=== PATIENT | male | born 1955 | race Caucasian/White ===

== ENCOUNTER 2016-12-29 08:09 | Emergency (ER) | payer OTHER ==
[~2016-12-29] VITALS: Wt 71.0 kg
[~2016-12-29 08:09] MED LIST: ADV25050 INH; ASPI81TA3 PO; ATOR80TA75 PO; AZIT250T94 PO; LEVA0.634 HHN; LOSA25TA2 PO; METO25TA7 PO; PANT40TA4 PO; PRED20TA PO; TICA90TA PO; XOP15INH INH
[2016-12-29] MEDS ORDERED: ALBUTEROL 0.5% (NEB) 2.5 MG/0.5 ML AMP INH STA ×2 (08:40→08:42)
[2016-12-29] MEDS ORDERED: IPRATROPIUM (NEB) 0.5 MG/2.5 ML AMP INH STA (08:40)
[2016-12-29] MEDS ORDERED: predniSONE 20 MG TAB PO STA (08:40)
--- NOTE | 2016-12-29 09:40 | ERD ---
ER Documentation Chief Complaint Date/Time DATE: 12/29/16 TIME: 09:37 Chief Complaint SOB, WHEEZING, HX OF ASTHMA, NO CHEST PAIN REPORTED HPI This is a 61-year-old male who presents the emergency department today complaining of some shortness of breath and wheezing that started last night. Patient has a history of asthma. States he has been using his rescue inhaler a lot but he ran out of his nebulizer treatments. Denies any chest pain, nausea vomiting, fevers or chills. ROS All systems reviewed and are negative except as per history of present illness. Medications Home Meds Active Scripts Prednisone* (Prednisone*) 20 Mg Tab, 40 MG PO DAILY for 4 Days, TAB Prov:PHILLIP TINAJERO PA-C 12/29/16 Albuterol Sulfate* (Albuterol Sulfate* Neb) 0.083%-3 Ml Neb, 2.5 MG NEB Q4 Y for SHORTNESS OF BREATH, #30 EA Prov:PHILLIP TINAJERO PA-C 12/29/16 Albuterol Sulfate* (Ventolin HFA*) 18 Gm Hfa.aer.ad, 2 PUFF INHALATION Q4H, #1 INHALER Prov:PHILLIP TINAJERO PA-C 12/29/16 Azithromycin* (Zithromax*) 250 Mg Tablet, 250 MG PO .ZPACK DIRECTED, #6 TAB TAKE 500 MG (2 TABS) THE FIRST DAY THEN 250 MG (1 TAB) DAYS 2-5 Prov:SAL SCHUSTER MD 10/22/16 Prednisone* (Prednisone*) 20 Mg Tab, 60 MG PO DAILY for 6 Days, TAB 60 mg by mouth per day for 3 days then 40 mg by mouth for 3 days. Prov:SAL SCHUSTER MD 10/22/16 Levalbuterol* (Xopenex* HFA) 15 Gm Inha, 2 PUFFS INH Q4H Y for WHEEZING AND SOB , #1 INHALER Prov:PETER DEY 09/01/16 Ticagrelor* (Brilinta*) 90 Mg Tablet, 90 MG PO BID for 90 Days, TAB Prov:PEETR DEY 09/01/16 Salmeterol Xinaf/Fluticasone* (Advair*) 250-50 Diskus Inhaler, 1 INH INH BID for 30 Days Prov:PETER DEY 09/01/16 Pantoprazole* (Pantoprazole*) 40 Mg Tablet.dr, 40 MG PO DAILY@06 for 20 Days Prov:PETER DEY 09/01/16 Metoprolol Succinate* (Toprol XL*) 25 Mg Tab.sr.24h, 50 MG PO DAILY for 30 Days Prov:PETER DEY 09/01/16 Losartan Potassium* (Cozaar*) 25 Mg Tablet, 25 MG PO DAILY for 30 Days, TAB Prov:PETER DEY 09/01/16 Levalbuterol Hcl* (Levalbuterol Hcl*) 0.63 Mg/3 Ml Vial.neb, 0.63 MG HHN Q4 Y for dyspnea and wheezing, #90 Prov:PETER DEY 09/01/16 Atorvastatin* (Atorvastatin*) 80 Mg Tablet, 80 MG PO HS for 30 Days, TAB Prov:PETER DEY 09/01/16 Aspirin (Aspirin) 81 Mg Chew, 81 MG PO DAILY for 30 Days, TAB Prov:ZACKIDORPETRE 09/01/16 Allergies Allergies: Coded Allergies: No Known Allergy (Unverified , 12/29/16) PMhx/Soc History of Surgery: Yes (STENT ) Anesthesia Reaction: No Hx Neurological Disorder: No Hx Respiratory Disorders: Yes (ASTHMA) Hx Cardiac Disorders: Yes (STEMI) Hx Psychiatric Problems: Yes (depression) Hx Miscellaneous Medical Probl: Yes (cholesterol, renal insufficiency.) Hx Alcohol Use: No Hx Substance Use: No Hx Tobacco Use: Yes (USE NICORETTE GUM) Smoking Status: Former smoker Physical Exam Vitals Vital Signs Date Time Temp Pulse Resp B/P Pulse Ox O2 Delivery O2 Flow Rate FiO2 12/29/16 08:50 78 20 96 21 12/29/16 08:18 97.1 71 18 104/68 96 Physical Exam Const: Talkative, no acute distress Head: Atraumatic Eyes: Normal Conjunctiva ENT: Ears TMs normal. Nose no drainage. Throat no erythema no exudate Neck: Full range of motion..~ No meningismus. Resp: Diffuse wheezing bilaterally in all lung sandoval. Cardio: Regular rate and rhythm, no murmurs Skin: No petechiae or rashes Neur: Awake and alert Psych: Normal Mood and Affect Results 24 hrs Current Medications Medications (Trade) Dose Ordered Sig/Osmar Route PRN Reason Start Time Stop Time Status Last Admin Dose Admin Albuterol (Proventil 0.5% (Neb)) 5 mg ONCE STAT INH 12/29/16 08:40 12/29/16 08:42 DC Ipratropium [place] (Atrovent 0.02% (Neb)) 1 mg ONCE STAT INH 12/29/16 08:40 12/29/16 08:42 DC 12/29/16 08:50 Prednisone (Prednisone) 60 mg ONCE STAT PO 12/29/16 08:40 12/29/16 08:42 DC 12/29/16 08:50 Albuterol (Proventil 0.5% (Neb)) 10 mg ONCE STAT INH 12/29/16 08:42 12/29/16 08:43 DC 12/29/16 08:50 Procedures/MDM This is a 61-year-old male who presents to the emergency department today complaining of wheezing and some shortness of breath that started last night. Patient has a history of asthma and he has run out of his medications. On physical exam patient did have diffuse wheezing bilaterally in all lung sandoval. His oxygen saturation was 96%. Patient was not in any acute distress and he has had no fevers or chills and I do not feel the patient requires a chest x- ray at this time. Patient was seen in September for similar complaints and had a negative chest x-ray at that time. Patient has had a history of a stent placement and OH back in August 2016 and therefore did obtain an EKG given his complaint of shortness of breath. EKG read and interpreted by Dr. Martinez. Rate [address] elevation. No QT prolongation. Sinus tachycardia. Low suspicion for acute OH, PE, pericarditis, Patient symptoms at this time is consistent with acute asthma exacerbation. Patient was given a 1 hour continuous breathing treatment and oral prednisone here in the emergency department. Patient's symptoms improved and wheezing resolved. I will give him a prescription for short course of prednisone per home as well as a refill on his asthma medications. Do not feel the patient requires antibiotics at this time. Low suspicion for pneumonia At this time the patient is stable for discharge and outpatient management. Patient should follow up with their PCP in the next 1-2 days. They may return to the emergency department sooner for any persistent or worsening of symptoms. Patient understood and agreed with the plan. Departure Diagnosis: Primary Impression: Asthma exacerbation Condition: PHILLIP Black PA-C Dec 29, 2016 09:40
[2016-12-29] MEDS ORDERED: ALBU2.5V3 NEB (09:55)
[2016-12-29] MEDS ORDERED: ALBU18HF INHALATION (09:55)
[2016-12-29] MEDS ORDERED: PRED20TA PO (09:55)
== END 2016-12-29 10:04 | disposition home or self-care (01) ==
LOC: FTE 08:09
DX: J45.901 Unspecified asthma with (acute) exacerbation (principal); Z98.61 Coronary angioplasty status; Z87.891 Personal history of nicotine dependence; Z79.82 Long term (current) use of aspirin; Z79.01 Long term (current) use of anticoagulants
CPT/HCPCS: 93005; 94644; J7512; Z7502; Z7610

== ENCOUNTER 2017-03-10 02:32 | Inpatient (IN) | payer OTHER ==
[2017-03-10] VITALS (8 sets, daily range): BP systolic 94–134; BP diastolic 55–65; PULSE 86–105; RESP 17–20; Ht 170.2 cm; Wt 72.7 kg
[~2017-03-10] VITALS: Ht 170.2 cm; Wt 72.7 kg
[~2017-03-10 02:32] MED LIST changes: +ALBU18HF INHALATION; +ALBU2.5V3 NEB; +LEVA15HF6 INH; -XOP15INH INH
[2017-03-10] MEDS ORDERED: SOD CHLORIDE 0.9% 1,000 ML IV STA (02:38)
[2017-03-10] MEDS ORDERED: ALBUTEROL 0.5% (NEB) 2.5 MG/0.5 ML AMP NEB STA (02:38)
[2017-03-10] MEDS ORDERED: IPRATROPIUM (NEB) 0.5 MG/2.5 ML AMP NEB STA (02:38)
--- NOTE | 2017-03-10 02:55 | RADRPT ---
PROCEDURE: Portable chest x-ray. CLINICAL INDICATION: Asthma. TECHNIQUE: Portable AP view of the chest. COMPARISON: 10/22/2016. FINDINGS: No pulmonary edema or conolidation is identified. The cardiac silhouette is magnified. No pleural effusion is seen. There is no pneumothorax. IMPRESSION: 1. No evidence of acute cardiopulmonary disease. RPTAT: HTAR .Ezra Gerardo MD, MD Date Time Electronically viewed and signed by .Ezra Gerardo MD, on 03/10/2017 02:55 .R/
[2017-03-10] MEDS ORDERED: MAGNESIUM SULFATE 2 GM/50 ML 50 ML IVPB ONE (03:00)
[2017-03-10] MEDS ORDERED: METHYLPREDNISOLONE 125 MG INJ IV ONE (03:00)
[2017-03-10 03:11] LABS: ADD SCAN DIFF NO
[2017-03-10 03:12] LABS: BASOPHIL # 0.1 10^3/ul (0.0-0.1); BASOPHILS % 0.6 % (0.0-2.0); EOSINOPHILS # 1.7 10^3/ul (0.0-0.5); EOSINOPHILS % 9.7 % (0.0-7.0); HEMATOCRIT 45.1 % (42.0-52.0); HEMOGLOBIN 15.2 g/dl (14.0-18.0); LYMPHOCYTES # 4.4 10^3/ul (0.8-2.9); LYMPHOCYTES % 24.7 % (15.0-51.0); MEAN CORPUSCULAR HEMOGLOBIN 32.2 pg (29.0-33.0); MEAN CORPUSCULAR HGB CONC 33.7 g/dl (32.0-37.0); MEAN CORPUSCULAR VOLUME 95.6 fl (82.0-101.0); MEAN PLATELET VOLUME 8.7 fl (7.4-10.4); MONOCYTE # 1.2 10^3/ul (0.3-0.9); MONOCYTES % 6.4 % (0.0-11.0); NEUTROPHIL # 10.4 10^3/ul (1.6-7.5); PLATELET COUNT 225 10^3/UL (140-415); RED BLOOD COUNT 4.72 10^6/ul (4.70-6.10); RED CELL DISTRIBUTION WIDTH 13.2 % (11.5-14.5); WHITE BLOOD COUNT 17.9 10^3/ul (4.8-10.8)
[2017-03-10 04:18] LABS: ANION GAP 13 (8-16); BLOOD UREA NITROGEN 25 mg/dl (7-20); CALCIUM 9.6 mg/dl (8.4-10.2); CARBON DIOXIDE 23 mmol/L (21-31); CHLORIDE 109 mmol/L (97-110); CREATININE 1.64 mg/dl (0.61-1.24); GLUCOSE 125 mg/dl (70-220); POTASSIUM 4.7 mmol/L (3.5-5.1); SODIUM 140 mmol/L (135-144)
[2017-03-10 04:33] LABS: TROPONIN-I < 0.012 ng/ml (0.00-0.12)
[2017-03-10 05:17] LABS: AADO2 Arterial 65.7 mmHg (7.0-24.0); Allen Test ACCEPTAB; Arterial Base Excess -4.2 mmol/L (-3.0-3); Arterial COHb 0.3 % (0.0-3.0); Arterial Fraction of Oxyhgb 98.7 % (93.0-99.0); Arterial HCO3 19.9 mmol/L (22.0-26.0); Arterial MetHb 0.4 % (0.0-1.5); Arterial Total Hemglobin 14.3 g/dl (12.0-18.0); Blood Gas IEPAP 15/5; MODE MASK - BIPAP
[2017-03-10] MEDS ORDERED: ALBUTEROL 0.083% (NEB) 2.5 MG/3 ML AMP HHN STA (05:56)
[2017-03-10] MEDS ORDERED: ACETAMINOPHEN 325 MG TAB PO PRN ×2 (06:00→07:30)
[2017-03-10] MEDS ORDERED: ONDANSETRON 4 MG INJ IV PRN ×2 (06:00→07:30)
--- NOTE | 2017-03-10 06:35 | ERA ---
ER Documentation Chief Complaint Date/Time DATE: 03/10/17 TIME: 06:29 Chief Complaint BIBA RA39,SOB X2 days,hx asthma HPI This 61-year-old male presents with increasing shortness of breath 2 days. Is brought in by paramedics in respiratory extremis and unable to provide a history initially. After breathing treatments and BiPAP patient was able to say that he had no chest pain, no fevers or chills. He has had cough. This feels like his COPD exacerbation "but a bad one". ROS All systems reviewed and are negative except as per history of present illness. Medications Home Meds Active Scripts Prednisone* (Prednisone*) 20 Mg Tab, 40 MG PO DAILY for 4 Days, TAB Prov:PHILLIP TINAJERO PA-C 12/29/16 Albuterol Sulfate* (Albuterol Sulfate* Neb) 0.083%-3 Ml Neb, 2.5 MG NEB Q4 Y for SHORTNESS OF BREATH, #30 EA Prov:PHILLIP TINAJERO PA-C 12/29/16 Albuterol Sulfate* (Ventolin HFA*) 18 Gm Hfa.aer.ad, 2 PUFF INHALATION Q4H, #1 INHALER Prov:PHILLIP TINAJERO PA-C 12/29/16 Prednisone* (Prednisone*) 20 Mg Tab, 60 MG PO DAILY for 6 Days, TAB 60 mg by mouth per day for 3 days then 40 mg by mouth for 3 days. Prov:SAL SCHUSTER MD 10/22/16 Levalbuterol* (Xopenex* HFA) 15 Gm Inha, 2 PUFFS INH Q4H Y for WHEEZING AND SOB , #1 INHALER Prov:PETER DEY 09/01/16 Ticagrelor* (Brilinta*) 90 Mg Tablet, 90 MG PO BID for 90 Days, TAB Prov:PETER DEY 09/01/16 Salmeterol Xinaf/Fluticasone* (Advair*) 250-50 Diskus Inhaler, 1 INH INH BID for 30 Days Prov:PETER DEY 09/01/16 Pantoprazole* (Pantoprazole*) 40 Mg Tablet.dr, 40 MG PO DAILY@06 for 20 Days Prov:PETER DEY 09/01/16 Metoprolol Succinate* (Toprol XL*) 25 Mg Tab.sr.24h, 50 MG PO DAILY for 30 Days Prov:BERTA DEYNELL 09/01/16 Losartan Potassium* (Cozaar*) 25 Mg Tablet, 25 MG PO DAILY for 30 Days, TAB Prov:BERTA DEYNELL 09/01/16 Levalbuterol Hcl* (Levalbuterol Hcl*) 0.63 Mg/3 Ml Vial.neb, 0.63 MG HHN Q4 Y for dyspnea and wheezing, #90 Prov:TIBURCIOPETER 09/01/16 Atorvastatin* (Atorvastatin*) 80 Mg Tablet, 80 MG PO HS for 30 Days, TAB Prov:CINTHYAIrvingPETER 09/01/16 Aspirin (Aspirin) 81 Mg Chew, 81 MG PO DAILY for 30 Days, TAB Prov:ZACKRAKANPETER 09/01/16 Discontinued Scripts Azithromycin* (Zithromax*) 250 Mg Tablet, 250 MG PO .ZPACK DIRECTED, #6 TAB TAKE 500 MG (2 TABS) THE FIRST DAY THEN 250 MG (1 TAB) DAYS 2-5 Prov:SAL SCHUSTER MD 10/22/16 Allergies Allergies: Coded Allergies: No Known Allergy (Unverified , 12/29/16) PMhx/Soc History of Surgery: Yes (STENT ) Anesthesia Reaction: No Hx Neurological Disorder: No Hx Respiratory Disorders: Yes (ASTHMA) Hx Cardiac Disorders: Yes (STEMI) Hx Psychiatric Problems: Yes (depression) Hx Miscellaneous Medical Probl: Yes (cholesterol, renal insufficiency.) Hx Alcohol Use: No Hx Substance Use: No Hx Tobacco Use: Yes (USE NICORETTE GUM) Smoking Status: Former smoker Physical Exam Vitals Vital Signs Date Time Temp Pulse Resp B/P Pulse Ox O2 Delivery O2 Flow Rate FiO2 03/10/17 05:40 108 18 123/78 100 Nasal Cannula 3.0 03/10/17 04:45 105 18 110/75 100 CPAP 03/10/17 03:35 117 100 60 03/10/17 03:20 124 22 137/89 100 Non Rebreather 15.0 03/10/17 02:51 123 26 93 21 03/10/17 02:40 Nasal Cannula 4 03/10/17 02:37 Nasal Cannula 3.0 03/10/17 02:34 98.2 121 19 158/90 97 Physical Exam Const: [] Severe respiratory distress Head: Atraumatic Eyes: Normal Conjunctiva ENT: Normal External Ears, Nose and Mouth. Neck: Full range of motion..~ No meningismus. Resp: Pronounced expiratory and inspiratory wheezing, tachypnea, accessory muscle use Cardio: Regular tachycardia no murmurs Abd: Soft, non tender, non distended. Normal bowel sounds Skin: No petechiae or rashes Back: No midline or flank tenderness Ext: No cyanosis, or edema Neur: Awake and alert and oriented 3, no focal deficits Psych: Normal Mood and Affect Result Diagram: 03/10/17 0300 03/10/17 0300 Results 24 hrs Laboratory Tests Test 03/10/17 03:00 03/10/17 05:09 White Blood Count 17.910^3/ul Red Blood Count 4.7210^6/ul Hemoglobin 15.2g/dl Hematocrit 45.1% Mean Corpuscular Volume 95.6fl Mean Corpuscular Hemoglobin 32.2pg Mean Corpuscular Hemoglobin Concent 33.7g/dl Red Cell Distribution Width 13.2% Platelet Count 38083^3/UL Mean Platelet Volume 8.7fl Neutrophils % 58.0% Lymphocytes % 24.7% Monocytes % 6.4% Eosinophils % 9.7% Basophils % 0.6% Nucleated Red Blood Cells % 0.0/100WBC Neutrophils # 10.410^3/ul Lymphocytes # 4.410^3/ul Monocytes # 1.210^3/ul Eosinophils # 1.710^3/ul Basophils # 0.110^3/ul Nucleated Red Blood Cells # 0.010^3/ul Sodium Level 140mmol/L Potassium Level 4.7mmol/L Chloride Level 109mmol/L Carbon Dioxide Level 23mmol/L Anion Gap 13 Blood Urea Nitrogen 25mg/dl Creatinine 1.64mg/dl Glucose Level 125mg/dl Calcium Level 9.6mg/dl Troponin I < 0.012ng/ml Blood Gas Specimen Source Blood arterial Arterial Blood Date Drawn 03/10/2017 5:12:14 AM Arterial Blood pH (Temp corrected) 7.386 Arterial Blood pCO2 (Temp correct) 34.0mmhg Arterial Blood pO2 (Temp corrected) 324.7mmHG Arterial Blood HCO3 19.9mmol/L Arterial Blood Base Excess -4.2mmol/L Arterial Blood Oxygen Saturation 99.4mmHG Ezra Test ACCEPTAB Arterial Blood Gas Puncture Site Right Radial Arterial Blood Carboxyhemoglobin 0.3% Arterial Blood Methemoglobin 0.4% Blood Gas A-a O2 Differential 65.7mmHg Oxyhemoglobin Percent 98.7% Total Hemoglobin 14.3g/dl Blood Gas Temperature 37.0C Blood Gas Respiration Rate 16.0 Blood Gas Actual Respiration Rate 19 Blood Gas Modality MASK - BIPAP FiO2 60.0% Blood Gas IPAP/EPAP Ratio 15/5 Blood Gas Notified Whom MG Blood Gas Notified Time 03/10/2017 5:17:45 AM Current Medications Medications (Trade) Dose Ordered Sig/Osmar Route PRN Reason Start Time Stop Time Status Last Admin Dose Admin Sodium Chloride (NS) 1,000 ml @ 1,000 mls/hr Q1H STAT IV 03/10/17 02:38 03/10/17 03:37 DC 03/10/17 02:57 Albuterol (Proventil 0.5% (Neb)) 15 mg ONCE STAT NEB 03/10/17 02:38 03/10/17 02:39 DC 03/10/17 02:50 Ipratropium [place] (Atrovent 0.02% (Neb)) 1 mg ONCE STAT NEB 03/10/17 02:38 03/10/17 02:39 DC 03/10/17 02:50 Methylprednisolone Sodium Succinate 125 mg 125 mg ONCE ONCE IV 03/10/17 03:00 03/10/17 03:01 DC 03/10/17 02:57 Magnesium Sulfate (Magnesium Sulfate 2 Gm/50 ml) 50 ml @ 1,000 mls/hr ONCE ONCE IVPB 03/10/17 03:00 03/10/17 03:02 DC 03/10/17 02:57 Ondansetron HCl (Zofran Inj) 4 mg ER BRIDGE PRN IV NAUSEA AND/OR VOMITING 03/10/17 06:00 03/11/17 05:59 Acetaminophen (Tylenol Tab) 650 mg ER BRIDGE PRN PO MILD PAIN/FEVER 03/10/17 06:00 03/11/17 05:59 Albuterol (Proventil 0.083% (Neb)) 5 mg ONCE STAT HHN 03/10/17 05:56 03/10/17 05:58 DC Procedures/MDM Severe COPD exacerbation. Patient presented in extremis. He was given 15 mg albuterol 1 mg Atrovent breathing treatment as well as Solu-Medrol and 2 mg magnesium push. His condition was improving somewhat but he was still working very hard to breathe. BiPAP was then used. After now on the BiPAP the patient was feeling much better. He still had very pronounced wheezing. Tachycardia had reduced significantly. There are no signs of cardiac ischemia on EKG or troponin. Patient had had a N STEMI in August of last year. Chest x-ray is also clear for any pneumonia. Did have leukocytosis which may be reactive to from his respiratory extremis. He will be admitted to the hospital for further monitoring. Also has renal insufficiency with creatinine values consistent to prior. We have the patient is stable for telemetry and does not need ICU at this time. EKG interpretation: Sinus tachycardia rate of 127, left anterior fascicular block, junctional ST depression, ST elevations or depressions concerning for acute ischemia, indeterminate axis hospital monitor interpretation sinus tachycardia improved after respiratory treatment Chest x-ray interpretation: Hyperinflated lungs without evidence of infiltrate, pneumothorax, pulmonary edema, or fractures Critical care time 44 minutes: This includes treatment of severe COPD with need for noninvasive positive pressure ventilation as well as magnesium distraction and breathing treatment, multiple visits the patient's bedside to reassess status, chart reviewed, discussion with patient admitting doctor. Does not include any billable procedures Departure Diagnosis: Primary Impression: Severe chronic obstructive pulmonary disease Additional Impressions: Respiratory failure Renal insufficiency Leukocytosis GREGORIO DAO DO March 10, 2017 06:35
[2017-03-10] MEDS ORDERED: NITROGLYCERIN (SL) 0.4 MG TAB SL PRN (07:30)
[2017-03-10] MEDS ORDERED: DOCUSATE SODIUM 100 MG CAP PO PRN (07:30)
[2017-03-10] MEDS ORDERED: ALBUTEROL HFA 8 GM INHALER INH SCH (07:30)
[2017-03-10] MEDS ORDERED: ALBUTEROL 0.083% (NEB) 2.5 MG/3 ML AMP NEB PRN (07:30)
[2017-03-10] MEDS ORDERED: NACL 0.9% 3 ML SYG IV SCH (07:30)
[2017-03-10] MEDS ORDERED: BISACODYL (EC) 5 MG TAB PO PRN (07:30)
--- NOTE | 2017-03-10 08:01 | HP ---
Date/Time of Note Date/Time of Note DATE: 03/10/17 TIME: 07:13 Assessment/Plan VTE Prophylaxis VTE Prophylaxis Intervention: SCD's Lines/Catheters IV C[facility] Saline Lock Assessment/Plan Chief Complaint/Hosp Course This is a 61-year-old male being admitted to telemetry floor for: #1 COPD/asthma exacerbation: Patient currently right now is doing a lot better status post steroids and BiPAP treatment. Will continue DuoNeb every 4 hours. He did receive a loading dose of Solu-Medrol in the ER. Proceed with Prednisone burst 40 mg once daily for 5 days. Patient does have productive sputum he came in with increased dyspnea and he also has risk factors of cardiac disease as well as an elevated white count of 17 Will treat him right now with ceftriaxone IV as I would like to avoid using a fluoroquinolone secondary to his cardiac history. Supplemental 02 to maintain 02 greater than 90%. #2 history of STEMI: Patient currently not complaining of any chest pain. First set of troponin was negative will order another set. More likely appears to be #1, but will continue to monitor. #3 COPD exacerbation. We will continue his home medications as well as his beta -matheus secondary to his recent history IA. #4 Zeferino: Janayley pre-renal in etiology. PO hydration. continue to follow Cr. #5 Hypertension; stable, continue losartan #6 Dyslipidemia lipids, continue statin #7 DVT and GI prophylaxis: The current time patient is on Brilinta will put him on SCDs, famotidine Problems: HPI/ROS Admit Date/Time Admit Date/Time 03/10/2017 Hx of Present Illness Chief complaint: Shortness of breath 1 week worsening over 2 days This 61-year-old male presents with increasing shortness of breath 2 days. he was brought in via EMS in respiratory distress and after receiving breathing treatments and BiPAP he was able to get relief and was able to give appropriate history to the ER physician. Patient states that over the last week or so he has had a productive cough with phlegm which is increasing. It has been changing color from clear to greenish color now. Patient states that over the last 2 nights he started having increasing shortness of breath. He tried his inhalers at home however he was not getting any relief. He states that he has had exacerbation for this feels like a really bad one. He denies any chest pain or diaphoresis or swelling in his legs. Denies any fevers. Patient currently right now is feeling a lot better than before. Allergies: NKDA Medications: See DEC ROS Const: As per HPI Eyes : No pain discharge or redness or change in visual acuity ENT: No pain, sore throat, congestion, congestion, dysphagia or discharge Respiratory: As per HPI Cardiovascular: As per HPI GI : no change in appetite, abdominal pain, nausea, vomiting, diarrhea, constipation, or change in the color his stool Genitourinary: No dysuria, hematuria, flank pain , discharge or CVA tenderness Musculoskeletal: No joint pain, back pain, neck pain, restricted range of motion in neck or joints Skin: No rash, bruising or hives Neuro: No headache, dizziness, syncope, seizure, focal weakness Endocrine: No polyuria, polydipsia, temperature intolerance Psych: No hallucination, depression, anxiety or suicidal ideation PMH/Family/Social Past Medical History IA status post stents in August 2016 Arthritis. Hypertension. Dyslipidemia. Asthma/copd Depression. Reported history of PTSD. Past Surgical History Cardiac stents in August 2016 Past Surgical Hx: no surgical history Family History Significant Family History: diabetes (Dad), hypertension (Mom), vascular disease (Mom) Social History Alcohol Use: none Smoking Status: Current every day smoker (4 cigarettes per day for the last 4 months, previously 1 pack per day 30 years) Drug Use: none Exam/Review of Systems Vital Signs Vitals Vital Signs Date Time Temp Pulse Resp B/P Pulse Ox O2 Delivery O2 Flow Rate FiO2 03/10/17 05:40 108 18 123/78 100 Nasal Cannula 3.0 03/10/17 03:35 60 03/10/17 02:34 98.2 Exam Exam General: Patient is a well-developed and pleasant male in no acute distress. HEENT: Atraumatic, normocephalic. The pupils are equal, round and reactive. Extraocular motor are intact Neck: Supple with full range of motion. No rigidity or meningismus Chest: Nontender Lungs: Diffuse expiratory wheezing of bilateral lung sandoval, adequate aeration Heart: Normal S1-S2, Regular rhythm and rate. Abdomen: Soft , nontender, nondistended , bowel sounds are present. No guarding no rebound tenderness , No masses or organomegaly. Extremities: Normal to inspection, no edema no cyanosis Neurologic: Normal mental status, speech normal, cranial nerves II through XII are intact, motor and sensory are intact, no focal weakness Additional Comments Sinus tachycardia rate of 127, left anterior fascicular block, PROCEDURE: Portable chest x-ray. CLINICAL INDICATION: Asthma. TECHNIQUE: Portable AP view of the chest. COMPARISON: 10/22/2016. FINDINGS: No pulmonary edema or conolidation is identified. The cardiac silhouette is magnified. No pleural effusion is seen. There is no pneumothorax. IMPRESSION: 1. No evidence of acute cardiopulmonary disease. Labs Result Diagram: 03/10/17 0300 03/10/17 0300 TY LOMBARDO March 10, 2017 07:26
[2017-03-10] MEDS: ASPIRIN 81 MG TAB PO SCH (08:58)
[2017-03-10] MEDS ORDERED: FAMOTIDINE 20 MG TAB PO SCH (09:00)
[2017-03-10] MEDS: SALMETEROL/FLUTICASONE 250/50 INHA INH SCH ×2 (09:00→21:35)
[2017-03-10] MEDS: TICAGRELOR 90 MG TABLET PO SCH ×2 (09:04→21:34)
[2017-03-10] MEDS: LOSARTAN 25 MG TAB PO SCH (09:10)
[2017-03-10] MEDS: FAMOTIDINE 20 MG TAB PO SCH (09:10)
[2017-03-10] MEDS: METOPROLOL (XL) 50 MG TAB PO SCH (09:11)
[2017-03-10] MEDS: CEFTRIAXONE 1 GM/50 ML (PMX) 50 ML IVPB SCH (09:17)
[2017-03-10] MEDS: ALBUTEROL/IPRATROPIUM (NEB) 3 ML AMP HHN SCH ×4 (09:19→20:31)
[2017-03-10] MEDS ORDERED: hydrALAzine 20 MG INJ IV PRN (09:30)
[2017-03-10 10:04] LABS: CREATINE KINASE 146 IU/L (23-200)
[2017-03-10 10:16] LABS: CK-MB 3.13 ng/ml (0.0-2.4)
[2017-03-10 10:38] LABS: TROPONIN-I < 0.012 ng/ml (0.00-0.12)
[2017-03-10 13:28] LABS: CREATINE KINASE 149 IU/L (23-200)
[2017-03-10 13:40] LABS: CK-MB 2.77 ng/ml (0.0-2.4); TROPONIN-I < 0.012 ng/ml (0.00-0.12)
--- NOTE | 2017-03-10 16:11 | CONS ---
DATE OF ADMISSION: 03/10/2017 DATE OF CONSULTATION: 03/10/2017 TYPE OF CONSULTATION: Pulmonary. REASON FOR CONSULTATION: Shortness of breath. Thank you, Dr. Cuevas, for this consultation. HISTORY OF PRESENT ILLNESS: This is a pleasant 61-year-old gentleman with extensive tobacco history , now smoking only 1 to 2 cigarettes a day, previously half a pack to 1 pack per day. He came in wi th a several-day history of increasing shortness of breath, orthopnea, PND, difficulty breathing. Leodan castillo says he has had 10 exacerbations of his COPD in the past year and several of them requiring admiss ion to the hospital. At home he normally takes Dulera, albuterol inhaler and is currently not being followed by a collar band creaser. PAST MEDICAL HISTORY: 1. Coronary artery disease with history of ST elevation myocardial infarction. 2. Chronic obstructive pulmonary disease with continued tobacco use. 3. Hypertension. 4. Hyperlipidemia. MEDICATIONS: Per chart. ALLERGIES: NONE. SOCIAL HISTORY: Positive for alcohol and tobacco history. No history of illicit drug use. FAMILY HISTORY: Noncontributory. SYSTEMS REVIEW: A 12-point review of systems was negative other than that mentioned above. PHYSICAL EXAMINATION: GENERAL: Well-nourished, well-developed gentleman, comfortable at rest, talking in full and complet e sentences. VITAL SIGNS: Temperature 98, pulse 58, blood pressure 127/62, O2 saturation 97% on 2 L nasal cannul a. NECK: Supple. No JVD or lymphadenopathy. CARDIAC: S1, S2, no added sounds or murmurs. CHEST: Diminished air entry bilaterally. ABDOMEN: Soft, nontender. No guarding or rebound. EXTREMITIES: No cyanosis, clubbing or edema. NEUROLOGIC: Generalized weakness, but no focal deficits. LABORATORY DATA: White count 17.9, hemoglobin 15.2, platelets 225. BUN 25, creatinine 1.64. ABG o n BiPAP, pH 7.38, pCO2 of 34, PaO2 of 324. DIAGNOSTIC DATA: Chest x-ray was reviewed and shows no infiltrates or effusions. IMPRESSION AND PLAN: 1. Chronic obstructive pulmonary disease with acute exacerbation. 2. History of coronary artery disease. 3. History of ongoing tobacco use. PATIENT WILL NEED: 1. Steroid taper. 2. Continue antibiotics for tracheobronchitis. 3. Supplemental O2. 4. Smoking cessation advised. 5. Vaccinations with Pneumovax and flu vaccine if not already administered. 6. Deep venous thrombosis and gastrointestinal prophylaxis. 7. Outpatient pulmonary function testing and follow up with me. Dictated By: LAURA PIZARRO/LETICIA Conf#: [id number] DID#: [id number]
[2017-03-10] MEDS: METHYLPREDNISOLONE 40 MG INJ IV SCH ×2 (16:47→21:35)
[2017-03-10] MEDS: SOD CHLORIDE 0.9% 1,000 ML IV SCH (16:55)
[2017-03-10] MEDS: ATORVASTATIN 80 MG TAB PO SCH (21:33)
[2017-03-11] VITALS (12 sets, daily range): BP systolic 112–127; BP diastolic 54–78; PULSE 86–103; RESP 18–20
[2017-03-11] MEDS: ALBUTEROL/IPRATROPIUM (NEB) 3 ML AMP HHN SCH ×6 (01:36→20:57)
[2017-03-11] MEDS: SOD CHLORIDE 0.9% 1,000 ML IV SCH ×2 (06:00→14:51)
[2017-03-11] MEDS: METHYLPREDNISOLONE 40 MG INJ IV SCH ×3 (06:12→22:44)
[2017-03-11 06:54] LABS: ADD SCAN DIFF NO
[2017-03-11 07:16] LABS: ALBUMIN 3.3 g/dl (3.3-4.9); HEMOGLOBIN 12.4 g/dl (14.0-18.0); MEAN CORPUSCULAR HEMOGLOBIN 32.2 pg (29.0-33.0); MEAN CORPUSCULAR HGB CONC 33.5 g/dl (32.0-37.0); MEAN CORPUSCULAR VOLUME 96.1 fl (82.0-101.0); MEAN PLATELET VOLUME 9.4 fl (7.4-10.4); PLATELET COUNT 191 10^3/UL (140-415); RED BLOOD COUNT 3.85 10^6/ul (4.70-6.10); RED CELL DISTRIBUTION WIDTH 13.3 % (11.5-14.5); WHITE BLOOD COUNT 19.1 10^3/ul (4.8-10.8)
[2017-03-11 07:17] LABS: POTASSIUM 4.4 mmol/L (3.5-5.1)
[2017-03-11 07:19] LABS: BILIRUBIN,INDIRECT 0.2 mg/dl (0-1.1); BILIRUBIN,TOTAL 0.2 mg/dl (0.2-1.3); CREATININE 1.17 mg/dl (0.61-1.24)
[2017-03-11 07:20] LABS: ALBUMIN/GLOBULIN RATIO 1.17; CALCIUM 9.1 mg/dl (8.4-10.2); TOTAL PROTEIN 6.1 g/dl (6.1-8.1)
[2017-03-11 07:21] LABS: CHOL/HDL RATIO 2.1 RATIO
[2017-03-11 07:23] LABS: MAGNESIUM 2.3 mg/dl (1.7-2.5); PHOSPHORUS 2.8 mg/dl (2.5-4.9)
[2017-03-11] MEDS: CEFTRIAXONE 1 GM/50 ML (PMX) 50 ML IVPB SCH (08:16)
[2017-03-11] MEDS: SALMETEROL/FLUTICASONE 250/50 INHA INH SCH ×2 (08:16→20:09)
[2017-03-11] MEDS: ASPIRIN 81 MG TAB PO SCH (08:17)
[2017-03-11] MEDS: FAMOTIDINE 20 MG TAB PO SCH (08:18)
[2017-03-11] MEDS: METOPROLOL (XL) 50 MG TAB PO SCH (08:20)
[2017-03-11] MEDS: TICAGRELOR 90 MG TABLET PO SCH ×2 (08:25→20:08)
[2017-03-11 09:55] LABS: LYMPHOCYTES # 0.4 10^3/ul (0.8-2.9); MONOCYTE # 0.6 10^3/ul (0.3-0.9); NEUTROPHIL # 17.6 10^3/ul (1.6-7.5)
[2017-03-11] MEDS: GUAIFENESIN/CODEINE 5ML CUP PO PRN ×2 (15:25→20:06)
--- NOTE | 2017-03-11 16:32 | CONS ---
Date/Time of Note Date/Time of Note DATE: 03/11/17 TIME: 16:27 Assessment/Plan Assessment/Plan Additional Assessment/Plan Chest x-ray was reviewed from yesterday which is essentially clear. Assessment recommendations; 1. Patient admitted for COPD exacerbation and acute bronchitis, currently on appropriate treatment regimen. 2. History of hypertension. 3. History of coronary artery disease. 4. Current smoker. Continue current treatment. Consultation Date/Type/Reason Admit Date/Time 03/10/2017 Date of Consultation: March 11, 2017 Type of Consultation: Pulmonary Reason for Consultation Pulmonary consultations requested for evaluation of COPD exacerbation next History presenting any; patient is a 60-year-old white male who came into the hospital yesterday with a few weeks history of increasing chest congestion as well as sinus congestion with postnasal drip wheezing and shortness of breath. Patient has been treated on outpatient basis without any significant symptom improvement. Upon evaluation here the patient was found to be with COPD exacerbation and has been admitted and started on bronchodilators as well as antibiotics and systemic steroids with improvement in symptoms. According the patient he rarely has a flareup like this and in between the episodes patient has no symptoms whatsoever. Patient denies any abdominal pain nausea vomiting fever or chills. Past medical history; 1. History of COPD 2. Hypertension. 3. Hyperlipidemia. 4. Coronary artery disease. Medications; reviewed Allergies; none Social history; patient is a smoker Family history; patient is single he does not have any children. Occupational history; patient works as a security supervisor. Review of systems; denies any headache, seizures. Any visual changes. Dysphagia, odynophagia, chest pain. Complains of wheezing shortness of breath sputum production as described above. Denies any hemoptysis. Denies any abdominal pain, nausea vomiting. Any melena, hematochezia. Any orthopnea. Any edema. Any skin changes. Denies any hearing loss. Denies any chronic symptoms of COPD. General exam; elderly male, awake alert currently in no distress. Past Surgical History Past Surgical Hx: no surgical history Social History Alcohol Use: none Smoking Status: Former smoker Drug Use: none Exam/Review of Systems Vital Signs Vitals Vital Signs Date Time Temp Pulse Resp B/P Pulse Ox O2 Delivery O2 Flow Rate FiO2 03/11/17 16:11 99 03/11/17 16:03 98.0 18 118/58 97 03/11/17 12:23 Nasal Cannula 3.0 32 Intake and Output 03/10/17 03/10/17 03/11/17 15:00 23:00 07:00 Intake Total 1100 ml 1400 ml Output Total 3 ml Balance 1097 ml 1400 ml Exam H EENT exam; supple neck, no JVD. No lymphadenopathy. Midline trachea. No thyromegaly. Pharynx is clear. Patient has fair dentition. Chest examination; bilateral wheezing. S1-S2 audible, no murmurs. Regular rhythm. Abdomen examination of Leandro soft, nontender. No organomegaly. Bowel sounds audible. Extremity examination of Leandro no peripheral edema. No clubbing. Pulses 2+ bilaterally. DEHYDRATOR examination; cranial nerves are intact, no focal deficit. Results Result Diagram: 03/11/17 0555 03/11/17 0555 Results 24 hrs Laboratory Tests Test 03/11/17 05:55 White Blood Count 19.1 H Red Blood Count 3.85 L Hemoglobin 12.4 L Hematocrit 37.0 L Mean Corpuscular Volume 96.1 Mean Corpuscular Hemoglobin 32.2 Mean Corpuscular Hemoglobin Concent 33.5 Red Cell Distribution Width 13.3 Platelet Count 191 Mean Platelet Volume 9.4 Neutrophils % 92.0 H Band Neutrophils % 3.0 Lymphocytes % 2.0 L Monocytes % 3.0 Neutrophils # 17.6 H Lymphocytes # 0.4 L Monocytes # 0.6 Sodium Level 140 Potassium Level 4.4 Chloride Level 110 Carbon Dioxide Level 20 L Anion Gap 14 Blood Urea Nitrogen 30 H Creatinine 1.17 Glucose Level 146 Hemoglobin A1c 5.4 Calcium Level 9.1 Phosphorus Level 2.8 Magnesium Level 2.3 Total Bilirubin 0.2 Direct Bilirubin 0.00 Indirect Bilirubin 0.2 Aspartate Amino Transf (AST/SGOT) 32 Alanine Aminotransferase (ALT/SGPT) 61 Alkaline Phosphatase 67 Total Protein 6.1 Albumin 3.3 Globulin 2.80 Albumin/Globulin Ratio 1.17 Triglycerides Level 86 Cholesterol Level 122 LDL Cholesterol, Calculated 49 HDL Cholesterol 56 Cholesterol/HDL Ratio 2.1 Medications Medications Current Medications Ondansetron HCl (Zofran Inj) 4 mg Q6H PRN IV NAUSEA AND/OR VOMITING; Start at 07:30 Nitroglycerin (Nitroglycerin (Sl Tab) 0.4 Mg) 1 tab Q5M PRN SL CHEST PAIN; Start 03/10/17 at 07:30 Acetaminophen (Tylenol Tab) 650 mg Q6H PRN PO PAIN LEVEL 1-3 OR FEVER; Start at 07:30 Docusate Sodium (Colace) 100 mg Q12H PRN PO CONSTIPATION; Start 03/10/17 at 07: 30 Bisacodyl (Dulcolax) 5 mg DAILY PRN PO CONSTIPATION; Start 03/10/17 at 07:30 Aspirin (Aspirin) 81 mg DAILY PO Last administered on 03/11/17 08:17; Admin Dose 81 MG; Start 03/10/17 at 09:00 Atorvastatin Calcium (Lipitor) 80 mg HS PO Last administered on 03/10/17 21:33 ; Admin Dose 80 MG; Start 03/10/17 at 21:00 Losartan Potassium (Cozaar) 25 mg DAILY PO Last administered on 03/10/17 09:10 ; Admin Dose 25 MG; Start 03/10/17 at 09:00; Status Future Hold Metoprolol Succinate (Toprol Xl) 50 mg DAILY PO Last administered on 03/11/17 08:20; Admin Dose 50 MG; Start 03/10/17 at 09:00 Salmeterol Xinafoate/ Fluticasone (Advair 250/50 Diskus) 1 inh BID INH Last administered on 03/11/17 08:16; Admin Dose 1 INH; Start 03/10/17 at 09:00 Ticagrelor 90 mg 90 mg BID PO Last administered on 03/11/17 08:25; Admin Dose 90 MG; Start 03/10/17 at 09:00 Ceftriaxone Sodium (Rocephin) 50 ml @ 100 mls/hr DAILY IVPB Last administered on 03/11/17 08:16; Admin Dose 100 MLS/HR; Start 03/10/17 at 09:00 Famotidine 20 mg 20 mg DAILY PO Last administered on 03/11/17 08:18; Admin Dose 20 MG; Start 03/10/17 at 09:00 Sodium Chloride (NS) 1,000 ml @ 50 mls/hr Q20H IV Last administered on 14:51; Admin Dose 50 MLS/HR; Start 03/10/17 at 10:00 Hydralazine HCl (Apresoline) 10 mg Q8H PRN IV SBP>160; Start 03/10/17 at 09:30 Methylprednisolone Sodium Succinate (Solu-Medrol) 40 mg Q8 IV Last administered on 03/11/17 14:52; Admin Dose 40 MG; Start 03/10/17 at 16:00 Guaifenesin (Mucinex) 600 mg BID PO ; Start 03/11/17 at 21:00 Guaifenesin/ Codeine Phosphate (Robitussin Ac Liquid Cup) 10 ml Q4H PRN PO cough Last administered on 03/11/17 15:25; Admin Dose 10 ML; Start 03/11/17 at 15:30 LA NENA JOHNSON March 11, 2017 16:32
--- NOTE | 2017-03-11 17:13 | PN ---
Date/Time of Note Date/Time of Note DATE: 03/11/17 TIME: 17:11 Assessment/Plan VTE Prophylaxis VTE Prophylaxis Intervention: SCD's Lines/Catheters IV [facility] Peripheral IV Assessment/Plan Chief Complaint/Hosp Course Assessment and plan 1. COPD with exacerbation. Continue on steroid treatment. Computer Typesetter following. Continue breathing treatments. Await for clinical improvement of respiratory status 2. History of CAD with previous STEMI. Continue optimization with cardio vascular medications. Continue on statin and aspirin 3. Dyslipidemia. Continue on statin medication 4. Essential hypertension. Continue antihypertensives and adjust as needed DVT prophylaxis :SCDs Disposition and plan: Continue breathing treatments. Await for clinical improvement of respiratory status. Discussed plan of care with Dr. Woodall Problems: Subjective 24 Hr Interval Summary Free Text/Dictation Still with some shortness of breath and wheezing. Exam/Review of Systems Vital Signs Vitals Vital Signs Date Time Temp Pulse Resp B/P Pulse Ox O2 Delivery O2 Flow Rate FiO2 03/11/17 16:11 99 03/11/17 16:03 98.0 18 118/58 97 03/11/17 12:23 Nasal Cannula 3.0 32 Intake and Output 03/10/17 03/10/17 03/11/17 15:00 23:00 07:00 Intake Total 1100 ml 1400 ml Output Total 3 ml Balance 1097 ml 1400 ml Exam Constitutional: alert, oriented Psych: nl mood/affect Head: normocephalic Neck: non-tender Respiratory: congested cough, wheezing Cardiovascular: regular rate and rhythm Gastrointestinal: non-tender, soft Musculoskeletal: nl extremities to inspection Extremities: normal pulses Neurological: AIRCRAFT MECHANIC STRUCTURES II-XII intact, nl mental status, nl speech Skin: nl turgor Results Result Diagram: 03/11/17 0555 03/11/17 0555 Results 24 hrs Laboratory Tests Test 03/11/17 05:55 White Blood Count 19.1 H Red Blood Count 3.85 L Hemoglobin 12.4 L Hematocrit 37.0 L Mean Corpuscular Volume 96.1 Mean Corpuscular Hemoglobin 32.2 Mean Corpuscular Hemoglobin Concent 33.5 Red Cell Distribution Width 13.3 Platelet Count 191 Mean Platelet Volume 9.4 Neutrophils % 92.0 H Band Neutrophils % 3.0 Lymphocytes % 2.0 L Monocytes % 3.0 Neutrophils # 17.6 H Lymphocytes # 0.4 L Monocytes # 0.6 Sodium Level 140 Potassium Level 4.4 Chloride Level 110 Carbon Dioxide Level 20 L Anion Gap 14 Blood Urea Nitrogen 30 H Creatinine 1.17 Glucose Level 146 Hemoglobin A1c 5.4 Calcium Level 9.1 Phosphorus Level 2.8 Magnesium Level 2.3 Total Bilirubin 0.2 Direct Bilirubin 0.00 Indirect Bilirubin 0.2 Aspartate Amino Transf (AST/SGOT) 32 Alanine Aminotransferase (ALT/SGPT) 61 Alkaline Phosphatase 67 Total Protein 6.1 Albumin 3.3 Globulin 2.80 Albumin/Globulin Ratio 1.17 Triglycerides Level 86 Cholesterol Level 122 LDL Cholesterol, Calculated 49 HDL Cholesterol 56 Cholesterol/HDL Ratio 2.1 Medications Medications Current Medications Ondansetron HCl (Zofran Inj) 4 mg Q6H PRN IV NAUSEA AND/OR VOMITING; Start at 07:30 Nitroglycerin (Nitroglycerin (Sl Tab) 0.4 Mg) 1 tab Q5M PRN SL CHEST PAIN; Start 03/10/17 at 07:30 Acetaminophen (Tylenol Tab) 650 mg Q6H PRN PO PAIN LEVEL 1-3 OR FEVER; Start at 07:30 Docusate Sodium (Colace) 100 mg Q12H PRN PO CONSTIPATION; Start 03/10/17 at 07: 30 Bisacodyl (Dulcolax) 5 mg DAILY PRN PO CONSTIPATION; Start 03/10/17 at 07:30 Aspirin (Aspirin) 81 mg DAILY PO Last administered on 03/11/17 08:17; Admin Dose 81 MG; Start 03/10/17 at 09:00 Atorvastatin Calcium (Lipitor) 80 mg HS PO Last administered on 03/10/17 21:33 ; Admin Dose 80 MG; Start 03/10/17 at 21:00 Losartan Potassium (Cozaar) 25 mg DAILY PO Last administered on 03/10/17 09:10 ; Admin Dose 25 MG; Start 03/10/17 at 09:00; Status Future Hold Metoprolol Succinate (Toprol Xl) 50 mg DAILY PO Last administered on 03/11/17 08:20; Admin Dose 50 MG; Start 03/10/17 at 09:00 Salmeterol Xinafoate/ Fluticasone (Advair 250/50 Diskus) 1 inh BID INH Last administered on 03/11/17 08:16; Admin Dose 1 INH; Start 03/10/17 at 09:00 Ticagrelor 90 mg 90 mg BID PO Last administered on 03/11/17 08:25; Admin Dose 90 MG; Start 03/10/17 at 09:00 Ceftriaxone Sodium (Rocephin) 50 ml @ 100 mls/hr DAILY IVPB Last administered on 03/11/17 08:16; Admin Dose 100 MLS/HR; Start 03/10/17 at 09:00 Famotidine 20 mg 20 mg DAILY PO Last administered on 03/11/17 08:18; Admin Dose 20 MG; Start 03/10/17 at 09:00 Sodium Chloride (NS) 1,000 ml @ 50 mls/hr Q20H IV Last administered on 14:51; Admin Dose 50 MLS/HR; Start 03/10/17 at 10:00 Hydralazine HCl (Apresoline) 10 mg Q8H PRN IV SBP>160; Start 03/10/17 at 09:30 Methylprednisolone Sodium Succinate (Solu-Medrol) 40 mg Q8 IV Last administered on 03/11/17 14:52; Admin Dose 40 MG; Start 03/10/17 at 16:00 Guaifenesin (Mucinex) 600 mg BID PO ; Start 03/11/17 at 21:00 Guaifenesin/ Codeine Phosphate (Robitussin Ac Liquid Cup) 10 ml Q4H PRN PO cough Last administered on 03/11/17 15:25; Admin Dose 10 ML; Start 03/11/17 at 15:30 PETER DEY March 11, 2017 17:13
[2017-03-11] MEDS: GUAIFENESIN LA 600 MG TABSR PO SCH (20:06)
[2017-03-11] MEDS: ATORVASTATIN 80 MG TAB PO SCH (20:06)
[2017-03-12] VITALS (11 sets, daily range): BP systolic 106–126; BP diastolic 63–74; PULSE 87–101; RESP 18–19
[2017-03-12] MEDS: ALBUTEROL/IPRATROPIUM (NEB) 3 ML AMP HHN SCH ×6 (01:50→20:00)
[2017-03-12] MEDS: GUAIFENESIN/CODEINE 5ML CUP PO PRN (04:33)
[2017-03-12] MEDS: METHYLPREDNISOLONE 40 MG INJ IV SCH ×3 (06:23→22:30)
[2017-03-12] MEDS: CEFTRIAXONE 1 GM/50 ML (PMX) 50 ML IVPB SCH (08:07)
[2017-03-12] MEDS: SALMETEROL/FLUTICASONE 250/50 INHA INH SCH ×2 (08:07→20:42)
[2017-03-12] MEDS: FAMOTIDINE 20 MG TAB PO SCH (08:08)
[2017-03-12] MEDS: ASPIRIN 81 MG TAB PO SCH (08:08)
[2017-03-12] MEDS: METOPROLOL (XL) 50 MG TAB PO SCH (08:09)
[2017-03-12] MEDS: GUAIFENESIN LA 600 MG TABSR PO SCH ×2 (08:09→20:41)
[2017-03-12] MEDS: TICAGRELOR 90 MG TABLET PO SCH ×2 (08:12→20:41)
--- NOTE | 2017-03-12 11:54 | CONS ---
Date/Time of Note Date/Time of Note DATE: 03/12/17 TIME: 11:52 Assessment/Plan Assessment/Plan Additional Assessment/Plan Assessment recommendations; 1. Patient admitted for COPD exacerbation and acute bronchitis with interval improvement. 2. History of coronary artery disease and hypertension. Continue current treatment. Patient responding well. Consultation Date/Type/Reason Admit Date/Time March 10, 2017 at 05:57 Initial Consult Date 03/11/17 Type of Consultation: Pulmonary 24 HR Interval Summary Free Text/Dictation Patient condition is improving. Reports decreased shortness of breath wheezing as well as cough and sputum production. Denies any chest pain, fever chills. General exam; elderly male, awake alert currently in no distress. Exam/Review of Systems Vital Signs Vitals Vital Signs Date Time Temp Pulse Resp B/P Pulse Ox O2 Delivery O2 Flow Rate FiO2 03/12/17 08:39 96 03/12/17 08:10 Nasal Cannula 2.0 03/12/17 08:01 20 97 21 03/12/17 07:34 98.0 126/72 Intake and Output 03/11/17 03/11/17 03/12/17 15:00 23:00 07:00 Intake Total 50 ml 1400 ml Output Total 1200 ml Balance 50 ml 200 ml Exam HEENT exam is; supple neck, no JVD. No lymphadenopathy. Midline trachea. No thyromegaly. Pharynx is clear. Neck Chest examination; improved breath sound bilaterally with mild expiratory wheezing. S1-S2 audible, no murmurs. Regular rhythm. Abdomen examination; soft, non-distended. No organomegaly. Bowel sounds audible. Extremity examination; no peripheral edema. METALSMITH APPRENTICE examination; no focal deficit. Results Result Diagram: 03/11/17 0555 03/11/17 0555 Medications Medications Current Medications Ondansetron HCl (Zofran Inj) 4 mg Q6H PRN IV NAUSEA AND/OR VOMITING; Start at 07:30 Nitroglycerin (Nitroglycerin (Sl Tab) 0.4 Mg) 1 tab Q5M PRN SL CHEST PAIN; Start 03/10/17 at 07:30 Acetaminophen (Tylenol Tab) 650 mg Q6H PRN PO PAIN LEVEL 1-3 OR FEVER; Start at 07:30 Docusate Sodium (Colace) 100 mg Q12H PRN PO CONSTIPATION; Start 03/10/17 at 07: 30 Bisacodyl (Dulcolax) 5 mg DAILY PRN PO CONSTIPATION; Start 03/10/17 at 07:30 Aspirin (Aspirin) 81 mg DAILY PO Last administered on 03/12/17 08:08; Admin Dose 81 MG; Start 03/10/17 at 09:00 Atorvastatin Calcium (Lipitor) 80 mg HS PO Last administered on 03/11/17 20:06 ; Admin Dose 80 MG; Start 03/10/17 at 21:00 Losartan Potassium (Cozaar) 25 mg DAILY PO Last administered on 03/10/17 09:10 ; Admin Dose 25 MG; Start 03/10/17 at 09:00; Status Future Hold Metoprolol Succinate (Toprol Xl) 50 mg DAILY PO Last administered on 03/12/17 08:09; Admin Dose 50 MG; Start 03/10/17 at 09:00 Salmeterol Xinafoate/ Fluticasone (Advair 250/50 Diskus) 1 inh BID INH Last administered on 03/12/17 08:07; Admin Dose 1 INH; Start 03/10/17 at 09:00 Ticagrelor 90 mg 90 mg BID PO Last administered on 03/12/17 08:12; Admin Dose 90 MG; Start 03/10/17 at 09:00 Ceftriaxone Sodium (Rocephin) 50 ml @ 100 mls/hr DAILY IVPB Last administered on 03/12/17 08:07; Admin Dose 100 MLS/HR; Start 03/10/17 at 09:00 Famotidine 20 mg 20 mg DAILY PO Last administered on 03/12/17 08:08; Admin Dose 20 MG; Start 03/10/17 at 09:00 Sodium Chloride (NS) 1,000 ml @ 50 mls/hr Q20H IV Last administered on 14:51; Admin Dose 50 MLS/HR; Start 03/10/17 at 10:00 Hydralazine HCl (Apresoline) 10 mg Q8H PRN IV SBP>160; Start 03/10/17 at 09:30 Methylprednisolone Sodium Succinate (Solu-Medrol) 40 mg Q8 IV Last administered on 03/12/17 06:23; Admin Dose 40 MG; Start 03/10/17 at 16:00 Guaifenesin (Mucinex) 600 mg BID PO Last administered on 03/12/17 08:09; Admin Dose 600 MG; Start 03/11/17 at 21:00 Guaifenesin/ Codeine Phosphate (Robitussin Ac Liquid Cup) 10 ml Q4H PRN PO cough Last administered on 03/12/17 04:33; Admin Dose 10 ML; Start 03/11/17 at 15:30 LA NENA JOHNSON March 12, 2017 11:53
--- NOTE | 2017-03-12 16:22 | PN ---
DATE: 03/12/2017 TIME OF EVALUATION: 1:30 p.m. SUBJECTIVE DATA: Complains of a wheezing, but feeling better. Denies any chest pain. OBJECTIVE DATA: VITAL SIGNS: Temperature 98.0, pulse rate 94, respiratory rate 22, blood pressure 106/60, oxygen saturation 94% on room air. GENERAL: This is a well-built, well-nourished male patient lying in bed in no apparent distress. HEENT: Head normocephalic and atraumatic. Eyes: Anicteric sclerae. Conjunctivae clear. ENT: Nasal septum is midline. Oral mucosa is moist. NECK: Supple. No JVD noticed. RESPIRATORY: Bilateral diminished breath sounds, expiratory wheezing. No use of accessory muscles of respiration. CARDIAC: Regular rate and rhythm. S1 and S2 heard. ABDOMEN: Soft, nontender and nondistended. Bowel sounds positive in all 4 quadrants. GENITOURINARY: Deferred. EXTREMITIES: No cyanosis, no clubbing, no edema. Peripheral pulses are palpable. NEUROLOGIC: The patient is awake, alert and oriented. Cranial nerves are grossly intact. LABORATORY AND DIAGNOSTIC DATA: None for today. ASSESSMENT AND PLAN: 1. Chronic obstructive pulmonary disease exacerbation. Continue inhaled bronchodilators. Continue tapering dose of steroids. 2. Acute hypoxic respiratory failure secondary to chronic obstructive pulmonary disease exacerbation. Continue management as per number 1. 3. Coronary artery disease. Status post coronary artery stenting. Continue dual antiplatelet therapy. 4. Ischemic cardiomyopathy with ejection fraction of 45%. Continue beta blockers. Will resume ARBs. 5. Dyslipidemia. Continue high statins in the setting of underlying coronary artery disease. 6. Acute kidney injury. This has been resolved with holding the ARBs, and the ARBs will be resumed. 7. Leukocytosis, most probably secondary to underlying steroid use . Monitor. 8. Fluid, electrolytes and nutrition. Low cholesterol diet. 9. Deep venous thrombosis prophylaxis. Subcutaneous heparin. 8. Gastrointestinal prophylaxis. Histamine-2 receptor blockers. PLAN: 1. Continue current management. 2. Continue inhaled bronchodilators. 3. Continue tapering dose of steroids. Case discussed with Dr. Flores. VIRGIL FLORES MD, AM/LETICIA Conf#: [id number] DID#: [id number] [facility]
[2017-03-12] MEDS: ATORVASTATIN 80 MG TAB PO SCH (20:41)
[2017-03-13] VITALS (12 sets, daily range): BP systolic 115–140; BP diastolic 66–76; PULSE 80–96; RESP 18–20
[2017-03-13] MEDS: ALBUTEROL/IPRATROPIUM (NEB) 3 ML AMP HHN SCH ×6 (00:25→20:28)
[2017-03-13 06:15] LABS: ADD SCAN DIFF NO
[2017-03-13] MEDS: METHYLPREDNISOLONE 40 MG INJ IV SCH ×3 (06:15→22:01)
[2017-03-13 06:24] LABS: BASOPHILS % 0.1 % (0.0-2.0); HEMATOCRIT 40.6 % (42.0-52.0); HEMOGLOBIN 13.4 g/dl (14.0-18.0); LYMPHOCYTES # 0.7 10^3/ul (0.8-2.9); LYMPHOCYTES % 4.3 % (15.0-51.0); MEAN CORPUSCULAR HEMOGLOBIN 31.6 pg (29.0-33.0); MEAN CORPUSCULAR VOLUME 95.8 fl (82.0-101.0); MEAN PLATELET VOLUME 9.2 fl (7.4-10.4); MONOCYTE # 0.6 10^3/ul (0.3-0.9); MONOCYTES % 3.9 % (0.0-11.0); NEUTROPHIL # 14.5 10^3/ul (1.6-7.5); NEUTROPHILS % 90.8 % (39.0-77.0); PLATELET COUNT 202 10^3/UL (140-415); RED BLOOD COUNT 4.24 10^6/ul (4.70-6.10); RED CELL DISTRIBUTION WIDTH 13.5 % (11.5-14.5)
[2017-03-13 06:54] LABS: CALCIUM 9.5 mg/dl (8.4-10.2); CREATININE 0.95 mg/dl (0.61-1.24); MAGNESIUM 2.3 mg/dl (1.7-2.5); PHOSPHORUS 3.5 mg/dl (2.5-4.9); POTASSIUM 4.4 mmol/L (3.5-5.1)
[2017-03-13] MEDS: CEFTRIAXONE 1 GM/50 ML (PMX) 50 ML IVPB SCH (08:21)
[2017-03-13] MEDS: ASPIRIN 81 MG TAB PO SCH (08:22)
[2017-03-13] MEDS: SALMETEROL/FLUTICASONE 250/50 INHA INH SCH ×2 (08:22→21:47)
[2017-03-13] MEDS: FAMOTIDINE 20 MG TAB PO SCH (08:23)
[2017-03-13] MEDS: GUAIFENESIN LA 600 MG TABSR PO SCH ×2 (08:23→20:11)
[2017-03-13] MEDS: METOPROLOL (XL) 50 MG TAB PO SCH (08:23)
[2017-03-13] MEDS: TICAGRELOR 90 MG TABLET PO SCH ×2 (08:26→20:13)
[2017-03-13] MEDS: LOSARTAN 25 MG TAB PO SCH (08:28)
--- NOTE | 2017-03-13 11:16 | CONS ---
Date/Time of Note Date/Time of Note DATE: 03/13/17 TIME: 11:14 Assessment/Plan Assessment/Plan Additional Assessment/Plan Assessment and recommendations; 1. Patient admitted for COPD exacerbation and acute bronchitis with significant clinical improvement, however still having mild expiratory wheezing. 2. History of hypertension and coronary artery disease. Continue current treatment. Consultation Date/Type/Reason Admit Date/Time March 10, 2017 at 05:57 Initial Consult Date 03/11/17 Type of Consultation: Pulmonary 24 HR Interval Summary Free Text/Dictation Patient condition is gradually improving. Still complains of mild chest congestion and wheezing. Significantly improved from the day of admission. General exam; elderly male, awake alert currently in no distress. Exam/Review of Systems Vital Signs Vitals Vital Signs Date Time Temp Pulse Resp B/P Pulse Ox O2 Delivery O2 Flow Rate FiO2 03/13/17 09:37 21 03/13/17 08:12 96 03/13/17 08:00 Nasal Cannula 2.0 03/13/17 07:06 97.8 20 136/75 94 Intake and Output 03/12/17 03/12/17 03/13/17 15:00 23:00 07:00 Intake Total 250 ml 800 ml 200 ml Output Total 1300 ml Balance 250 ml -500 ml 200 ml Exam H EENT examination; supple neck, no JVD. No lymphadenopathy. Midline trachea. Pharynx is clear. Pupils are small bilaterally. Chest exam; mild expiratory wheezing. S1-S2 audible, no murmurs. Regular rhythm. Abdomen examination; soft, nondistended. No organomegaly. Bowel sounds audible. Extremity examination; no peripheral edema. CLEANING MATRON examination; no focal deficit. Results Result Diagram: 03/13/17 0529 03/13/17 0529 Results 24 hrs Laboratory Tests Test 03/13/17 05:29 White Blood Count 16.0 H Red Blood Count 4.24 L Hemoglobin 13.4 L Hematocrit 40.6 L Mean Corpuscular Volume 95.8 Mean Corpuscular Hemoglobin 31.6 Mean Corpuscular Hemoglobin Concent 33.0 Red Cell Distribution Width 13.5 Platelet Count 202 Mean Platelet Volume 9.2 Neutrophils % 90.8 H Lymphocytes % 4.3 L Monocytes % 3.9 Eosinophils % 0.0 Basophils % 0.1 Nucleated Red Blood Cells % 0.0 Neutrophils # 14.5 H Lymphocytes # 0.7 L Monocytes # 0.6 Eosinophils # 0.0 Basophils # 0.0 Nucleated Red Blood Cells # 0.0 Sodium Level 138 Potassium Level 4.4 Chloride Level 112 H Carbon Dioxide Level 22 Anion Gap 8 Blood Urea Nitrogen 27 H Creatinine 0.95 Glucose Level 137 Calcium Level 9.5 Phosphorus Level 3.5 Magnesium Level 2.3 Medications Medications Current Medications Ondansetron HCl (Zofran Inj) 4 mg Q6H PRN IV NAUSEA AND/OR VOMITING; Start at 07:30 Nitroglycerin (Nitroglycerin (Sl Tab) 0.4 Mg) 1 tab Q5M PRN SL CHEST PAIN; Start 03/10/17 at 07:30 Acetaminophen (Tylenol Tab) 650 mg Q6H PRN PO PAIN LEVEL 1-3 OR FEVER; Start at 07:30 Docusate Sodium (Colace) 100 mg Q12H PRN PO CONSTIPATION; Start 03/10/17 at 07: 30 Bisacodyl (Dulcolax) 5 mg DAILY PRN PO CONSTIPATION; Start 03/10/17 at 07:30 Aspirin (Aspirin) 81 mg DAILY PO Last administered on 03/13/17 08:22; Admin Dose 81 MG; Start 03/10/17 at 09:00 Atorvastatin Calcium (Lipitor) 80 mg HS PO Last administered on 03/12/17 20:41 ; Admin Dose 80 MG; Start 03/10/17 at 21:00 Losartan Potassium (Cozaar) 25 mg DAILY PO Last administered on 03/10/17 09:10 ; Admin Dose 25 MG; Start 03/10/17 at 09:00; Status Future hold Metoprolol Succinate (Toprol Xl) 50 mg DAILY PO Last administered on 03/13/17 08:23; Admin Dose 50 MG; Start 03/10/17 at 09:00 Salmeterol Xinafoate/ Fluticasone (Advair 250/50 Diskus) 1 inh BID INH Last administered on 03/13/17 08:22; Admin Dose 1 INH; Start 03/10/17 at 09:00 Ticagrelor 90 mg 90 mg BID PO Last administered on 03/13/17 08:26; Admin Dose 90 MG; Start 03/10/17 at 09:00 Ceftriaxone Sodium (Rocephin) 50 ml @ 100 mls/hr DAILY IVPB Last administered on 03/13/17 08:21; Admin Dose 100 MLS/HR; Start 03/10/17 at 09:00 Famotidine (Pepcid) 20 mg DAILY PO Last administered on 03/13/17 08:23; Admin Dose 20 MG; Start 03/10/17 at 09:00 Hydralazine HCl (Apresoline) 10 mg Q8H PRN IV SBP>160; Start 03/10/17 at 09:30 Methylprednisolone Sodium Succinate (Solu-Medrol) 40 mg Q8 IV Last administered on 03/13/17 06:15; Admin Dose 40 MG; Start 03/10/17 at 16:00 Guaifenesin (Mucinex) 600 mg BID PO Last administered on 03/13/17 08:23; Admin Dose 600 MG; Start 03/11/17 at 21:00 Guaifenesin/ Codeine Phosphate (Robitussin Ac Liquid Cup) 10 ml Q4H PRN PO cough Last administered on 03/12/17 04:33; Admin Dose 10 ML; Start 03/11/17 at 15:30 LA NENA JOHNSON March 13, 2017 11:16
--- NOTE | 2017-03-13 12:21 | PN ---
Date/Time of Note Date/Time of Note DATE: 03/13/17 TIME: 12:21 Assessment/Plan VTE Prophylaxis VTE Prophylaxis Intervention: heparin Lines/Catheters IV Catheter Type (from [facility]): Saline [facility] Assessment/Plan Chief Complaint/Hosp Course 1. Chronic obstructive pulmonary disease exacerbation. Continue inhaled bronchodilators. Continue tapering dose of steroids. The patient being followed by pulmonary. 2. Acute hypoxic respiratory failure secondary to chronic obstructive pulmonary disease exacerbation. Continue management as per number 1. 3. Coronary artery disease. Status post coronary artery stenting. Continue dual antiplatelet therapy. 4. Ischemic cardiomyopathy with ejection fraction of 45%. Continue beta blockers and ARBs. 5. Dyslipidemia. Continue high dose statins in the setting of underlying coronary artery disease. 6. Acute kidney injury. This has been resolved with holding the ARBs. Monitor BUN and creatinine closely. 7. Leukocytosis, most probably secondary to underlying steroid use . Monitor. 8. Fluid, electrolytes and nutrition. Low cholesterol diet. 9. Deep venous thrombosis prophylaxis. Subcutaneous heparin. 8. Gastrointestinal prophylaxis. Histamine-2 receptor blockers. PLAN: 1. Continue current management. 2. Continue inhaled bronchodilators. 3. Continue tapering dose of steroids. Case discussed with Dr. Hernandez. Problems: Subjective 24 Hr Interval Summary Free Text/Dictation Complains of productive cough. Exam/Review of Systems Vital Signs Vitals Vital Signs Date Time Temp Pulse Resp B/P Pulse Ox O2 Delivery O2 Flow Rate FiO2 03/13/17 11:49 97.7 85 20 115/75 95 03/13/17 09:37 21 03/13/17 08:00 Nasal Cannula 2.0 Intake and Output 03/12/17 03/12/17 03/13/17 14:59 22:59 06:59 Intake Total 250 ml 800 ml 200 ml Output Total 1300 ml Balance 250 ml -500 ml 200 ml Exam GENERAL: This is a well-built, well-nourished male patient lying in bed in no apparent distress. HEENT: Head normocephalic and atraumatic. Eyes: Anicteric sclerae. Conjunctivae clear. ENT: Nasal septum is midline. Oral mucosa is moist. NECK: Supple. No JVD noticed. RESPIRATORY: Bilateral diminished breath sounds, expiratory wheezing. No use of accessory muscles of respiration. CARDIAC: Regular rate and rhythm. S1 and S2 heard. ABDOMEN: Soft, nontender and nondistended. Bowel sounds positive in all 4 quadrants. GENITOURINARY: Deferred. EXTREMITIES: No cyanosis, no clubbing, no edema. Peripheral pulses are palpable. NEUROLOGIC: The patient is awake, alert and oriented. Cranial nerves are grossly intact. Results Result Diagram: 03/13/17 0529 03/13/17 0529 Results 24 hrs Laboratory Tests Test 03/13/17 05:29 White Blood Count 16.0 H Red Blood Count 4.24 L Hemoglobin 13.4 L Hematocrit 40.6 L Mean Corpuscular Volume 95.8 Mean Corpuscular Hemoglobin 31.6 Mean Corpuscular Hemoglobin Concent 33.0 Red Cell Distribution Width 13.5 Platelet Count 202 Mean Platelet Volume 9.2 Neutrophils % 90.8 H Lymphocytes % 4.3 L Monocytes % 3.9 Eosinophils % 0.0 Basophils % 0.1 Nucleated Red Blood Cells % 0.0 Neutrophils # 14.5 H Lymphocytes # 0.7 L Monocytes # 0.6 Eosinophils # 0.0 Basophils # 0.0 Nucleated Red Blood Cells # 0.0 Sodium Level 138 Potassium Level 4.4 Chloride Level 112 H Carbon Dioxide Level 22 Anion Gap 8 Blood Urea Nitrogen 27 H Creatinine 0.95 Glucose Level 137 Calcium Level 9.5 Phosphorus Level 3.5 Magnesium Level 2.3 Medications Medications Current Medications Ondansetron HCl (Zofran Inj) 4 mg Q6H PRN IV NAUSEA AND/OR VOMITING; Start at 07:30 Nitroglycerin (Nitroglycerin (Sl Tab) 0.4 Mg) 1 tab Q5M PRN SL CHEST PAIN; Start 03/10/17 at 07:30 Acetaminophen (Tylenol Tab) 650 mg Q6H PRN PO PAIN LEVEL 1-3 OR FEVER; Start at 07:30 Docusate Sodium (Colace) 100 mg Q12H PRN PO CONSTIPATION; Start 03/10/17 at 07: 30 Bisacodyl (Dulcolax) 5 mg DAILY PRN PO CONSTIPATION; Start 03/10/17 at 07:30 Aspirin (Aspirin) 81 mg DAILY PO Last administered on 03/13/17 08:22; Admin Dose 81 MG; Start 03/10/17 at 09:00 Atorvastatin Calcium (Lipitor) 80 mg HS PO Last administered on 03/12/17 20:41 ; Admin Dose 80 MG; Start 03/10/17 at 21:00 Losartan Potassium (Cozaar) 25 mg DAILY PO Last administered on 03/10/17 09:10 ; Admin Dose 25 MG; Start 03/10/17 at 09:00; Status Future hold Metoprolol Succinate (Toprol Xl) 50 mg DAILY PO Last administered on 03/13/17 08:23; Admin Dose 50 MG; Start 03/10/17 at 09:00 Salmeterol Xinafoate/ Fluticasone (Advair 250/50 Diskus) 1 inh BID INH Last administered on 03/13/17 08:22; Admin Dose 1 INH; Start 03/10/17 at 09:00 Ticagrelor 90 mg 90 mg BID PO Last administered on 03/13/17 08:26; Admin Dose 90 MG; Start 03/10/17 at 09:00 Ceftriaxone Sodium (Rocephin) 50 ml @ 100 mls/hr DAILY IVPB Last administered on 03/13/17 08:21; Admin Dose 100 MLS/HR; Start 03/10/17 at 09:00 Famotidine (Pepcid) 20 mg DAILY PO Last administered on 03/13/17 08:23; Admin Dose 20 MG; Start 03/10/17 at 09:00 Hydralazine HCl (Apresoline) 10 mg Q8H PRN IV SBP>160; Start 03/10/17 at 09:30 Methylprednisolone Sodium Succinate (Solu-Medrol) 40 mg Q8 IV Last administered on 03/13/17 06:15; Admin Dose 40 MG; Start 03/10/17 at 16:00 Guaifenesin (Mucinex) 600 mg BID PO Last administered on 03/13/17 08:23; Admin Dose 600 MG; Start 03/11/17 at 21:00 Guaifenesin/ Codeine Phosphate (Robitussin Ac Liquid Cup) 10 ml Q4H PRN PO cough Last administered on 03/12/17 04:33; Admin Dose 10 ML; Start 03/11/17 at 15:30 VIRGIL ORTIZ NP March 13, 2017 12:21
[2017-03-13] MEDS: ATORVASTATIN 80 MG TAB PO SCH (20:11)
[2017-03-14] VITALS (9 sets, daily range): BP systolic 118–133; BP diastolic 67–81; PULSE 83–102; RESP 18–20
[2017-03-14] MEDS: ALBUTEROL/IPRATROPIUM (NEB) 3 ML AMP HHN SCH ×4 (01:00→13:00)
[2017-03-14] MEDS: METHYLPREDNISOLONE 40 MG INJ IV SCH (06:08)
[2017-03-14 07:46] LABS: ADD SCAN DIFF NO
[2017-03-14 07:49] LABS: BASOPHILS % 0.1 % (0.0-2.0); HEMATOCRIT 42.2 % (42.0-52.0); LYMPHOCYTES # 1.1 10^3/ul (0.8-2.9); LYMPHOCYTES % 7.3 % (15.0-51.0); MEAN CORPUSCULAR HEMOGLOBIN 31.4 pg (29.0-33.0); MEAN CORPUSCULAR HGB CONC 33.2 g/dl (32.0-37.0); MEAN CORPUSCULAR VOLUME 94.6 fl (82.0-101.0); MEAN PLATELET VOLUME 9.1 fl (7.4-10.4); MONOCYTE # 0.9 10^3/ul (0.3-0.9); NEUTROPHIL # 12.1 10^3/ul (1.6-7.5); NEUTROPHILS % 84.7 % (39.0-77.0); NUCLEATED RED BLOOD CELLS% 0.2 /100WBC (0.0-0.0); PLATELET COUNT 206 10^3/UL (140-415); RED BLOOD COUNT 4.46 10^6/ul (4.70-6.10); RED CELL DISTRIBUTION WIDTH 13.2 % (11.5-14.5); WHITE BLOOD COUNT 14.3 10^3/ul (4.8-10.8)
[2017-03-14 08:04] LABS: POTASSIUM 4.2 mmol/L (3.5-5.1)
[2017-03-14 08:06] LABS: CREATININE 0.97 mg/dl (0.61-1.24)
[2017-03-14 08:07] LABS: CALCIUM 8.9 mg/dl (8.4-10.2)
[2017-03-14] MEDS: ASPIRIN 81 MG TAB PO SCH (08:22)
[2017-03-14] MEDS: GUAIFENESIN LA 600 MG TABSR PO SCH (08:22)
[2017-03-14] MEDS: FAMOTIDINE 20 MG TAB PO SCH (08:22)
[2017-03-14] MEDS: CEFTRIAXONE 1 GM/50 ML (PMX) 50 ML IVPB SCH (08:23)
[2017-03-14] MEDS: LOSARTAN 25 MG TAB PO SCH (08:23)
[2017-03-14] MEDS: METOPROLOL (XL) 50 MG TAB PO SCH (08:23)
[2017-03-14] MEDS: TICAGRELOR 90 MG TABLET PO SCH (08:24)
[2017-03-14] MEDS: SALMETEROL/FLUTICASONE 250/50 INHA INH SCH (08:26)
[2017-03-14 08:30] LABS: MAGNESIUM 2.3 mg/dl (1.7-2.5); PHOSPHORUS 3.2 mg/dl (2.5-4.9)
[2017-03-14] MEDS ORDERED: predniSONE 20 MG TAB PO ONE (10:30)
--- NOTE | 2017-03-14 10:31 | CONS ---
Date/Time of Note Date/Time of Note DATE: 03/14/17 TIME: 10:29 Assessment/Plan Assessment/Plan Additional Assessment/Plan Assessment and recommendations; next 1. Patient admitted for severe COPD exacerbation with marked clinical improvement. 2. Acute bronchitis. 3. History of hypertension and coronary artery disease. Discontinue Solu-Medrol. Start the patient on prednisone 40 mg daily with further tapering in 24 hours. Continue other supportive medications. Consultation Date/Type/Reason Admit Date/Time March 10, 2017 at 05:57 Initial Consult Date 03/11/17 Type of Consultation: Pulmonary 24 HR Interval Summary Free Text/Dictation Patient condition is continually improving. Reports significant reduction in shortness of breath. Complains of very mild wheezing. General exam; elderly male, awake alert currently in no distress. Exam/Review of Systems Vital Signs Vitals Vital Signs Date Time Temp Pulse Resp B/P Pulse Ox O2 Delivery O2 Flow Rate FiO2 03/14/17 09:27 99 24 99 Nasal Cannula 2.0 03/14/17 07:02 98.3 133/81 03/13/17 20:29 21 Intake and Output 03/13/17 03/13/17 03/14/17 15:00 23:00 07:00 Intake Total 50 ml 960 ml 400 ml Balance 50 ml 960 ml 400 ml Exam HEENT exam is; supple neck, no JVD. No lymphadenopathy. Midline trachea. No thyromegaly. Pharynx is clear. Pupils are small bilaterally. Chest examination; diminished but clear breath sounds bilaterally. No added sound. S1-S2 audible, no murmurs. Regular rhythm. Abdomen examination; soft, nontender. No organomegaly. Bowel sounds audible. Extremity examination; no edema. GENERAL UTILITY MACHINE OPERATOR examination; no focal deficit. Results Result Diagram: 03/14/17 0645 03/14/17 0645 Results 24 hrs Laboratory Tests Test 03/14/17 06:45 White Blood Count 14.3 H Red Blood Count 4.46 L Hemoglobin 14.0 Hematocrit 42.2 Mean Corpuscular Volume 94.6 Mean Corpuscular Hemoglobin 31.4 Mean Corpuscular Hemoglobin Concent 33.2 Red Cell Distribution Width 13.2 Platelet Count 206 Mean Platelet Volume 9.1 Neutrophils % 84.7 H Lymphocytes % 7.3 L Monocytes % 6.0 Eosinophils % 0.0 Basophils % 0.1 Nucleated Red Blood Cells % 0.2 H Neutrophils # 12.1 H Lymphocytes # 1.1 Monocytes # 0.9 Eosinophils # 0.0 Basophils # 0.0 Nucleated Red Blood Cells # 0.0 Sodium Level 139 Potassium Level 4.2 Chloride Level 107 Carbon Dioxide Level 22 Anion Gap 14 Blood Urea Nitrogen 30 H Creatinine 0.97 Glucose Level 121 Calcium Level 8.9 Phosphorus Level 3.2 Magnesium Level 2.3 Medications Medications Current Medications Ondansetron HCl (Zofran Inj) 4 mg Q6H PRN IV NAUSEA AND/OR VOMITING; Start at 07:30 Nitroglycerin (Nitroglycerin (Sl Tab) 0.4 Mg) 1 tab Q5M PRN SL CHEST PAIN; Start 03/10/17 at 07:30 Acetaminophen (Tylenol Tab) 650 mg Q6H PRN PO PAIN LEVEL 1-3 OR FEVER; Start at 07:30 Docusate Sodium (Colace) 100 mg Q12H PRN PO CONSTIPATION; Start 03/10/17 at 07: 30 Bisacodyl (Dulcolax) 5 mg DAILY PRN PO CONSTIPATION; Start 03/10/17 at 07:30 Aspirin (Aspirin) 81 mg DAILY PO Last administered on 03/14/17 08:22; Admin Dose 81 MG; Start 03/10/17 at 09:00 Atorvastatin Calcium (Lipitor) 80 mg HS PO Last administered on 03/13/17 20:11 ; Admin Dose 80 MG; Start 03/10/17 at 21:00 Losartan Potassium (Cozaar) 25 mg DAILY PO Last administered on 03/14/17 08:23 ; Admin Dose 25 MG; Start 03/10/17 at 09:00; Status Future hold Metoprolol Succinate (Toprol Xl) 50 mg DAILY PO Last administered on 03/14/17 08:23; Admin Dose 50 MG; Start 03/10/17 at 09:00 Salmeterol Xinafoate/ Fluticasone (Advair 250/50 Diskus) 1 inh BID INH Last administered on 03/14/17 08:26; Admin Dose 1 INH; Start 03/10/17 at 09:00 Ticagrelor 90 mg 90 mg BID PO Last administered on 03/14/17 08:24; Admin Dose 90 MG; Start 03/10/17 at 09:00 Ceftriaxone Sodium (Rocephin) 50 ml @ 100 mls/hr DAILY IVPB Last administered on 03/14/17 08:23; Admin Dose 100 MLS/HR; Start 03/10/17 at 09:00 Famotidine (Pepcid) 20 mg DAILY PO Last administered on 03/14/17 08:22; Admin Dose 20 MG; Start 03/10/17 at 09:00 Hydralazine HCl (Apresoline) 10 mg Q8H PRN IV SBP>160; Start 03/10/17 at 09:30 Methylprednisolone Sodium Succinate (Solu-Medrol) 40 mg Q8 IV Last administered on 03/14/17 06:08; Admin Dose 40 MG; Start 03/10/17 at 16:00 Guaifenesin (Mucinex) 600 mg BID PO Last administered on 03/14/17 08:22; Admin Dose 600 MG; Start 03/11/17 at 21:00 Guaifenesin/ Codeine Phosphate (Robitussin Ac Liquid Cup) 10 ml Q4H PRN PO cough Last administered on 03/12/17 04:33; Admin Dose 10 ML; Start 03/11/17 at 15:30 LA NENA JOHNSON March 14, 2017 10:31
--- NOTE | 2017-03-14 11:35 | PDOCDIS ---
Discharge Instructions DIAGNOSIS Discharge Diagnosis: COPD exacerbation CONDITION Patient Condition: Stable HOME CARE INSTRUCTIONS: Special Diet: CARDIAC FOLLOW UP/APPOINTMENTS Appointments 1. Alonzo Pond MD Specialty: Pulmonary Medicine Office Address: [address] [place] [address] Office 2. Ge Baumann MD Specialty: Internal Medicine Office Address: [address] [place] [address] Office OTHER ORDERS: Other Orders: 1. Take medications as per prescription. 2. Follow a cardiac diet. 3. Follow-up with your primary care physician in 1 week. If you do not have a primary care physician please call Dr. Ge Baumann's office. Please have your primary care physician arrange for outpatient pulmonary follow-up with Dr. Pond. 4. Avoid tobacco use. 5. Please call 911 or go to the nearest emergency room if you have any chest pain or significant shortness of breath. VIRGIL ORTIZ NP March 14, 2017 11:35
[2017-03-14] MEDS ORDERED: MOME13HF INHALATION (11:38)
[2017-03-14] MEDS ORDERED: ALBU2.5V3 NEB (11:39)
[2017-03-14] MEDS ORDERED: PRED50TA PO (11:40)
--- NOTE | 2017-03-14 18:59 | DS ---
DATE OF ADMISSION: 03/10/2017 DATE OF DISCHARGE: 03/14/2017 FINAL DIAGNOSES: 1. Chronic obstructive pulmonary disease exacerbation. 2. Acute hypoxic respiratory failure secondary to chronic obstructive pulmonary disease exacerbation. 3. Coronary artery disease. 4. Ischemic cardiomyopathy with ejection fraction of 45%. 5. Dyslipidemia. 6. Acute kidney injury, resolved. 7. Leukocytosis. 8. Nicotine use. CONSULTANTS: 1. Dr. Alonzo Pond, Pulmonary. 2. Dr. Devon Peraza, Pulmonary. HOSPITAL COURSE: This is a 61-year-old male with past medical history of COPD, cardiomyopathy and CAD status post coronary artery stenting, who came to the emergency room with chief complaint of shortness of breath that has been going on for 1 week. The patient also verbalized productive cough with yellow sputum production. The patient denied any fevers. In the emergency room, the patient was noticed to have leukocytosis. The patient was afebrile. The patient's chest x-ray was negative for any acute cardiopulmonary findings. Provided the patient's history of present illness, his comorbidities and the diagnostic findings, a clinical decision was made to admit the patient to inpatient setting to have him further evaluated. The patient was admitted to inpatient telemetry floor. The patient was started on empiric antibiotics for any underlying acute tracheobronchitis. He was started on tapering dose of IV steroids. The patient was started on inhaled bronchodilators both around the clock and on a p.r.n. basis for any episodes of dyspnea. The patient was evaluated by pulmonary who concurred with the treatment strategy. The patient has underlying CAD status post stenting in the past. The patient was maintained on dual antiplatelet therapy. He has history of cardiomyopathy with an ejection fraction of 45%. He was maintained on beta blockers and ARBs. However, the patient was noticed to have acute kidney injury upon arrival with a BUN and creatinine of 25 and 1.64, respectively. The patient's ARBs were put on hold with improvement in the patient's renal function. Once the patient's renal function was normalized, the patient's ARBs were resumed. The patient has underlying CAD and dyslipidemia. He was maintained on statins for the same. The patient continued to have leukocytosis. The patient did not have any fevers. The patient was continued on inhaled bronchodilators. The patient continues to smoke despite his clinical condition. The patient was instructed multiple times on the importance of quitting smoking. The patient had a stable hospital clinical course. The patient was cleared by consultants to be discharged home. The patient denied any complaints at the time of discharge. DISCHARGE DISPOSITION/PLAN: The patient will be discharged home today. The patient was instructed to take medications as per prescription. He was instructed to follow a cardiac diet. He was instructed to follow up with his primary care physician in 1 week and if he does not have a primary care physician, to call Dr. Ge Baumann's clinic. He was instructed to follow up with pulmonary as an outpatient. A case management order was put in for arranging with insurance for outpatient pulmonary evaluation. He was instructed to avoid tobacco use. He was instructed to call 911 or go to the nearest emergency room if he has any chest pain or significant shortness of breath. The patient verbalized understanding of his discharge instructions. CONDITION AT DISCHARGE: Stable. DISCHARGE MEDICATIONS: 1. ProAir HFA 8.5 gram 2 puffs inhaled q.4h. p.r.n. shortness of breath. 2. Dulera 200/5 mcg 2 puffs inhalation b.i.d. 3. Prednisone 40 mg p.o. daily x2 days, then prednisone 20 mg p.o. daily x2 days, then prednisone 10 mg p.o. daily x2 Days, then prednisone 5 mg p.o. daily x2 days. 4. Albuterol 2.5 mg nebulizer solution q.4h. p.r.n. dyspnea. 5. Aspirin 81 mg p.o. daily. 6. Brilinta 90 mg p.o. b.i.d. 7. Atorvastatin 80 mg p.o. at bedtime. 8. Losartan 25 mg p.o. daily. 9. Toprol-XL 50 mg p.o. daily. 10. Protonix 40 mg p.o. daily. PERTINENT LABORATORY AND DIAGNOSTIC DATA: 1. Chest x-ray upon admission. No acute cardiopulmonary findings. 2. Latest CBC: WBC 14.3, hemoglobin 14.0, hematocrit 42.2, platelet count 206. 3. Latest BMP: Sodium 139, potassium 4.2, chloride 107, carbon dioxide 25, anion gap 14, BUN 30, creatinine 0.96, glucose 120, calcium 8.0, phosphorus 3.2 , magnesium 2.3. 4. Hemoglobin A1c 5.4. 5. Fasting lipid panel: Triglycerides 86, total cholesterol 122, LDL 49, HDL 56. 6. Blood gas that was done on admission on 60% FIO2 via BiPAP mask, pH 7.386, pCO2 of 34.0, pO2 of 324.7, bicarbonate 19.9, oxygen saturation 99.4, base excess -4.2. At this time, I would like to thank all the consultants for seeing the patient and providing clinical recommendations. The case and management of this patient was fully discussed with Dr. Kumar. Approximately 35 minutes was spent on coordinating the discharge on this patient. VIRGIL KUMAR MD AM/NTS Conf#: [id number] DID#: [id number] MTDD
== END 2017-03-14 16:19 | disposition home or self-care (01) | DRG 190 ==
LOC: E/R 02:32 → TEL 05:57
PROVIDERS: ADMIT Family Medicine; ATTEND Family Medicine
PROC: 5A09357 Assistance with Respiratory Ventilation, Less than 24 Consecutive Hours, Continuous Positive Airway Pressure (ICD-10-PCS; principal; 2017-03-10)
DX: J44.1 Chronic obstructive pulmonary disease with (acute) exacerbation (principal); J96.01 Acute respiratory failure with hypoxia; N17.9 Acute kidney failure, unspecified; J44.0 Chronic obstructive pulmonary disease with (acute) lower respiratory infection; J20.9 Acute bronchitis, unspecified; I25.10 Atherosclerotic heart disease of native coronary artery without angina pectoris; I25.5 Ischemic cardiomyopathy; E78.5 Hyperlipidemia, unspecified; I25.2 Old myocardial infarction; I10 Essential (primary) hypertension; F17.210 Nicotine dependence, cigarettes, uncomplicated; Z95.5 Presence of coronary angioplasty implant and graft
CPT/HCPCS: 36600; 71010; 80048; 80053; 80061; 82550; 82553; 82803; 83036; 83735; 84100; 84484; 85025; 93005; 94640; 94644; 94660; 94664; 96374; 96375; J0696; J2920; J2930; J3475; J7030; J7512

== ENCOUNTER 2017-03-21 14:37 | Outpatient (CLI) | payer OTHER ==
[~2017-03-21] VITALS: Ht 170.2 cm; Wt 75.5 kg
[~2017-03-21 14:37] MED LIST changes: -ADV25050 INH; -AZIT250T94 PO; -LEVA0.634 HHN; -LEVA15HF6 INH; +MOME13HF INHALATION; -PRED20TA PO; +PRED50TA PO
[2017-03-21 15:27] VITALS: BP 89/52; PULSE 78; RESP 18; Ht 170.2 cm; Wt 75.5 kg
--- NOTE | 2017-03-21 16:02 | PN ---
Date/Time of Note Date/Time of Note DATE: 03/21/17 TIME: 15:58 Outpatient Progress Note Chief Complaint Acute exhibition of COPD/ASHD/COPD/hypertension/hyperlipidemia/depression HPI Acute exhibition of COPD/patient has still minimum cough, no fever chill, hemoptysis, recently hospitalized, patient on medication, doing better, ASHD/no chest pain, no PND orthopnea or ankle edema, patient had non-ST MN in the past, COPD/no cough expectoration hemoptysis, no fever chill, Hypertension/no headache or dizziness, no lightheadedness, no local focal weakness, Hyperlipidemia/no xanthoma, on medication, no side effect of medication, Depression/history of depression, no suicidal idea, Review of Systems Const: No Fever, no chills, no Wt. loss, no Fatigue, normal appetite, no diaphoresis. Eyes: No pain, no discharge, no redness, no visual change, no foreign body. ENT: No pain, no bleeding, no congestion, no sore throat, no dysphagia, no discharge or rhinitis. Lymph: No adenopathy, no tender nodes, no lymphedema. Resp: No SOB, minimal cough, no sputum, minimal wheezing, no chest pain. CV: No chest pain, no palpitaions, no LOPEZ, no PND, no edema. GI: Normal appetite, no pain, no nausea, no vomiting, no diarrhea, no blood, no constipation. : No frequency, no urgency, no dysuria, no hematuria, no flank pain, no discharge, no bleeding. Musc:no back pain, no neck pain, no knee pain, no restricted ROM. Skin: No rash, no skin lesions, no erythema, no laceration, no bruising, no pruritus. Neuro: No SMALL, no dizziness, no syncope, no seizure, no focal-weakness. Endo: No polyuria, no polydypsia, no dry-skin, no temp-intolerance. Psych: No hallucinations, no depression, no anxiety, no suicidal ideation. Ext: No edema, no pain, no ulcer, no weakness. Physical Exam Vital Signs Date Time Temp Pulse Resp B/P Pulse Ox O2 Delivery O2 Flow Rate FiO2 03/21/17 15:27 98.1 78 18 89/52 94 Room Air General Appearance: A 61 year-old male who appears well-developed, well- nourished, in no acute distress. HEENT: Head normocephalic, atraumatic. Pupils equal, round, reactive to light and accommodate. Sclerae are no jaundice. Nasal turbinates pink without erythema or nasal discharge. Mucous membranes pink and moist without lesions. Oropharynx clear without any exudate or discharge. NECK: Supple. Trachea midline, No thyromegaly, No cervical lymphadenopathy, No mass, No carotid bruits, No JVD, Carotid pulses 2+ bilaterally. PULMONARY: Clear to auscultaion bilaterally, No retractions, Chest expansion symmetric bilaterally, no rales, very few ronchi, no dulness on percussion. CARDIAC: Normal SI and S2, Regular rate and rythm, no murmur, gallop, or rub. GASTROINTESTINAL: Abdomen is soft, non-tender, Non Rigid, No distention, Positive bowel sounds x4 quadrants, Liver normal. SKIN: Warm, dry, no rash, no bruise, no echmosis. EXTREMITIES: Bilateral lower extremities normal, no edema, no phlabitus, pulse palpable, no contracture. MUSCULOSKELETAL: Spine Normal, Non-tender, Normal range of motion, No swelling, no deformity, no clubbing, or cyanosis, the patient has no edema to bilateral lower extremities, dorsalis pedis pulses palpable bilaterally. NEUROLOGIC: The patient is awake, alert, oriented, responding to yes/no questions appropriately, moving all extremities, cranial nerve intact, normal strenght, normal power, normal coordination, normal gait. Allergies Coded Allergies: No Known Allergy (Unverified , 12/29/16) PMH Acute exacerbation of COPD/ASHD/non-ST MN/COPD/hypertension/hyperlipidemia/ depression/DJD/history of PTSD Social Hx Patient smoke 4 cigarettes per day, no drinking, Family Hx Diabetes father Hypertension mother Vascular disease mother Assessment/Plan Impression Acute exacerbation of COPD,/ASHD/COPD/hypertension/hyperlipidemia/depression/ history of PTSD Plan Patient education done about COPD, and ASHD and hypertension, Patient has all the medication, patient still on medication from the hospital, patient does not need any refill, Patient advised to stop smoking, Patient advised to follow with the primary care physician, Patient increase activity slowly, patient advised to take medication regular basis, Medications Home Meds Active Scripts Albuterol Sulfate* (Albuterol Sulfate* Neb) 0.083%-3 Ml Neb, 2.5 MG NEB Q4H, # 30 VIAL Prov:VIRGIL ORTIZ GLASS FITTER 03/14/17 Mometasone-Formoterol (Dulera) 200-5 Mcg/Inh - 13 Gm Hfa.aer.ad, 2 PUFFS INHALATION BID for 30 Days, #1 INHALER Prov:VIRGIL ORTIZ GLASS FITTER 03/14/17 Albuterol Sulfate* (Ventolin HFA*) 18 Gm Hfa.aer.ad, 2 PUFF INHALATION Q4H, #1 INHALER Prov:PHILLIP TINAJEROC 12/29/16 Ticagrelor* (Brilinta*) 90 Mg Tablet, 90 MG PO BID for 90 Days, TAB Prov:PETER DEY 09/01/16 Pantoprazole* (Pantoprazole*) 40 Mg Tablet.dr, 40 MG PO DAILY@06 for 20 Days Prov:PETER DEY 09/01/16 Metoprolol Succinate* (Toprol XL*) 25 Mg Tab.sr.24h, 50 MG PO DAILY for 30 Days Prov:PETER DEY 09/01/16 Losartan Potassium* (Cozaar*) 25 Mg Tablet, 25 MG PO DAILY for 30 Days, TAB Prov:PETER DEY 09/01/16 Atorvastatin* (Atorvastatin*) 80 Mg Tablet, 80 MG PO HS for 30 Days, TAB Prov:PETER DEY 09/01/16 Aspirin (Aspirin) 81 Mg Chew, 81 MG PO DAILY for 30 Days, TAB Prov:PETER DEY 09/01/16 Discontinued Scripts Prednisone* (Prednisone*) 50 Mg Tablet, 40 MG PO DAILY for 2 Days, TAB Prednisone 40 mg p.o. daily 2 days, then Prednisone 20 mg p.o. daily 2 days, then Prednisone 10 mg p.o. daily 2 days, then Prednisone 5 mg p.o. daily 2 days. Prov:VIRGIL ORTIZ NP 03/14/17 Prednisone* (Prednisone*) 20 Mg Tab, 40 MG PO DAILY for 4 Days, TAB Prov:PHILLIP TINAJEROC 12/29/16 Albuterol Sulfate* (Albuterol Sulfate* Neb) 0.083%-3 Ml Neb, 2.5 MG NEB Q4 Y for SHORTNESS OF BREATH, #30 EA Prov:PHILLIP TINAJERO PA-C 12/29/16 Prednisone* (Prednisone*) 20 Mg Tab, 60 MG PO DAILY for 6 Days, TAB 60 mg by mouth per day for 3 days then 40 mg by mouth for 3 days. Prov:SAL SCHUSTER MD 10/22/16 Levalbuterol* (Xopenex* HFA) 15 Gm Inha, 2 PUFFS INH Q4H Y for WHEEZING AND SOB , #1 INHALER Prov:PETER DEY 09/01/16 Salmeterol Xinaf/Fluticasone* (Advair*) 250-50 Diskus Inhaler, 1 INH INH BID for 30 Days Prov:PETER DEY 09/01/16 Levalbuterol Hcl* (Levalbuterol Hcl*) 0.63 Mg/3 Ml Vial.neb, 0.63 MG HHN Q4 Y for dyspnea and wheezing, #90 Prov:PETER DEY 09/01/16 PIA WILSON MD March 21, 2017 16:02
== END 2017-03-21 17:00 | disposition home or self-care (01) ==
LOC: DCC 14:37
PROVIDERS: ATTEND Internal Medicine
DX: J44.1 Chronic obstructive pulmonary disease with (acute) exacerbation (principal); I25.10 Atherosclerotic heart disease of native coronary artery without angina pectoris; I10 Essential (primary) hypertension; E78.5 Hyperlipidemia, unspecified; F32.9 Major depressive disorder, single episode, unspecified; F43.10 Post-traumatic stress disorder, unspecified; I25.2 Old myocardial infarction; M19.90 Unspecified osteoarthritis, unspecified site; Z72.0 Tobacco use

== ENCOUNTER 2017-04-06 06:12 | Inpatient (IN) | payer MEDICAID, OTHER ==
[~2017-04-06] VITALS: Ht 170.2 cm; Wt 72.1 kg
[~2017-04-06 06:12] MED LIST changes: -PRED50TA PO
[2017-04-06] MEDS ORDERED: predniSONE 20 MG TAB PO STA (06:15)
[2017-04-06] MEDS ORDERED: IPRATROPIUM (NEB) 0.5 MG/2.5 ML AMP INH STA (06:15)
[2017-04-06] MEDS ORDERED: ALBUTEROL 0.5% (NEB) 2.5 MG/0.5 ML AMP INH STA (06:15)
[2017-04-06] MEDS ORDERED: AZITHROMYCIN 250 MG TAB PO ONE (06:30)
[2017-04-06] MEDS ORDERED: ACETAMINOPHEN 325 MG TAB PO PRN ×2 (07:30→10:00)
[2017-04-06] MEDS ORDERED: ONDANSETRON 4 MG INJ IV PRN ×2 (07:30→10:00)
[2017-04-06] MEDS ORDERED: CLOP75TA27 PO (07:34)
[2017-04-06] MEDS ORDERED: BUS5 PO (07:37)
[2017-04-06 07:39] LABS: ADD SCAN DIFF NO
[2017-04-06 07:41] LABS: BASOPHIL # 0.1 10^3/ul (0.0-0.1); BASOPHILS % 0.7 % (0.0-2.0); EOSINOPHILS # 1.5 10^3/ul (0.0-0.5); EOSINOPHILS % 20.2 % (0.0-7.0); HEMATOCRIT 41.3 % (42.0-52.0); HEMOGLOBIN 13.9 g/dl (14.0-18.0); LYMPHOCYTES # 2.9 10^3/ul (0.8-2.9); LYMPHOCYTES % 37.7 % (15.0-51.0); MEAN CORPUSCULAR HEMOGLOBIN 32.1 pg (29.0-33.0); MEAN CORPUSCULAR HGB CONC 33.7 g/dl (32.0-37.0); MEAN CORPUSCULAR VOLUME 95.4 fl (82.0-101.0); MEAN PLATELET VOLUME 8.7 fl (7.4-10.4); MONOCYTE # 0.6 10^3/ul (0.3-0.9); MONOCYTES % 7.4 % (0.0-11.0); NEUTROPHIL # 2.6 10^3/ul (1.6-7.5); NEUTROPHILS % 33.6 % (39.0-77.0); PLATELET COUNT 282 10^3/UL (140-415); RED BLOOD COUNT 4.33 10^6/ul (4.70-6.10); RED CELL DISTRIBUTION WIDTH 13.2 % (11.5-14.5); WHITE BLOOD COUNT 7.6 10^3/ul (4.8-10.8)
--- NOTE | 2017-04-06 07:57 | RADRPT ---
PROCEDURE: Chest Radiograph. CLINICAL INDICATION: Shortness of breath TECHNIQUE: Single frontal chest radiograph. COMPARISON: Chest radiograph 10/22/2016 FINDINGS: The cardiomediastinal silhouette is within normal limits. No infiltrate or effusion is seen. Th e bones are intact. IMPRESSION: 1. Unremarkable chest radiograph. RPTAT: KK .Johnathon Mason MD, MD Date Time Electronically viewed and signed by .Johnathon Mason MD, on 04/06/2017 07:57 .B/
[2017-04-06 08:00] LABS: ANION GAP 12 (8-16); BLOOD UREA NITROGEN 17 mg/dl (7-20); CALCIUM 9.9 mg/dl (8.4-10.2); CARBON DIOXIDE 28 mmol/L (21-31); CHLORIDE 110 mmol/L (97-110); CREATININE 1.12 mg/dl (0.61-1.24); GLUCOSE 105 mg/dl (70-220); POTASSIUM 4.4 mmol/L (3.5-5.1); SODIUM 146 mmol/L (135-144)
--- NOTE | 2017-04-06 08:10 | ERA ---
ER Documentation Chief Complaint Date/Time DATE: 04/06/17 TIME: 08:08 Chief Complaint SOB for two days. Acute distress on arrival. HPI Patient is a 61-year-old male with coronary disease and COPD who presents with shortness of breath. He was brought in by ambulance. He was given albuterol by paramedics. He was initially speaking in full sentences. He said that his insurance lapsed so we could not receive his medications. He had a recent admission 3 weeks ago for similar. He is ambulatory. Upon review of old medical records this is the patient's seventh visit to the ER since 2016. Review of the emergency department information exchange system shows visits to 2 separate emergency departments. ROS All systems reviewed and are negative except as per history of present illness. Medications Home Meds Active Scripts Albuterol Sulfate* (Albuterol Sulfate* Neb) 0.083%-3 Ml Neb, 2.5 MG NEB Q4H, # 30 VIAL Prov:VIRGIL ORTIZ ENGINEERING DEPARTMENT CHAIR 03/14/17 Mometasone-Formoterol (Dulera) 200-5 Mcg/Inh - 13 Gm Hfa.aer.ad, 2 PUFFS INHALATION BID for 30 Days, #1 INHALER Prov:VIRGIL ORTIZ NP 03/14/17 Albuterol Sulfate* (Ventolin HFA*) 18 Gm Hfa.aer.ad, 2 PUFF INHALATION Q4H, #1 INHALER Prov:PHILLIP TINAJERO PA-C 12/29/16 Pantoprazole* (Pantoprazole*) 40 Mg Tablet.dr, 40 MG PO DAILY@06 for 20 Days Prov:PETER DEY 09/01/16 Metoprolol Succinate* (Toprol XL*) 25 Mg Tab.sr.24h, 50 MG PO DAILY for 30 Days Prov:PETER DEY 09/01/16 Losartan Potassium* (Cozaar*) 25 Mg Tablet, 25 MG PO DAILY for 30 Days, TAB Prov:PETER DEY 09/01/16 Atorvastatin* (Atorvastatin*) 80 Mg Tablet, 80 MG PO HS for 30 Days, TAB Prov:PETER DEY 09/01/16 Aspirin (Aspirin) 81 Mg Chew, 81 MG PO DAILY for 30 Days, TAB Prov:PETER DEY 09/01/16 Reported Medications Buspirone Hcl* (Buspar*) 5 Mg Tab, 7.5 MG PO BID, TAB 04/06/17 Clopidogrel Bisulfate (Clopidogrel) 75 Mg Tablet, 75 MG PO DAILY, #30 TAB 04/06/17 Discontinued Scripts Ticagrelor* (Brilinta*) 90 Mg Tablet, 90 MG PO BID for 90 Days, TAB Prov:PETER DEY 09/01/16 Allergies Allergies: Coded Allergies: No Known Allergy (Unverified , 04/06/17) PMhx/Soc History of Surgery: No Anesthesia Reaction: No Hx Neurological Disorder: No Hx Respiratory Disorders: Yes (ASTHMA) Hx Cardiac Disorders: Yes (STEMI WITH STENTS) Hx Psychiatric Problems: Yes (DEPRESSION) Hx Miscellaneous Medical Probl: No Hx Alcohol Use: No Hx Substance Use: No Hx Tobacco Use: Yes (3YRS AGO) Smoking Status: Former smoker FmHx Family History: diabetes Physical Exam Vitals Vital Signs Date Time Temp Pulse Resp B/P Pulse Ox O2 Delivery O2 Flow Rate FiO2 04/06/17 07:17 114 100 100 04/06/17 07:08 121 27 132/89 98 Non Rebreather 04/06/17 06:25 125 20 98 21 04/06/17 06:18 6.0 04/06/17 06:18 97.6 112 26 168/105 100 Physical Exam Const: Moderate distress secondary to shortness of breath Head: Atraumatic Eyes: Normal Conjunctiva ENT: Normal External Ears, Nose and Mouth. Neck: Full range of motion..~ No meningismus. Resp: Tachypnea with diffuse expiratory wheezing Cardio: Tachycardic rate without murmur Abd: Soft, non tender, non distended. Normal bowel sounds Skin: No petechiae or rashes Back: No midline or flank tenderness Ext: No cyanosis, or edema Neur: Awake and alert Psych: Normal Mood and Affect Result Diagram: 04/06/17 0712 Results 24 hrs Laboratory Tests Test 04/06/17 07:12 White Blood Count 7.610^3/ul Red Blood Count 4.3310^6/ul Hemoglobin 13.9g/dl Hematocrit 41.3% Mean Corpuscular Volume 95.4fl Mean Corpuscular Hemoglobin 32.1pg Mean Corpuscular Hemoglobin Concent 33.7g/dl Red Cell Distribution Width 13.2% Platelet Count 40850^3/UL Mean Platelet Volume 8.7fl Neutrophils % 33.6% Lymphocytes % 37.7% Monocytes % 7.4% Eosinophils % 20.2% Basophils % 0.7% Nucleated Red Blood Cells % 0.0/100WBC Neutrophils # 2.610^3/ul Lymphocytes # 2.910^3/ul Monocytes # 0.610^3/ul Eosinophils # 1.510^3/ul Basophils # 0.110^3/ul Nucleated Red Blood Cells # 0.010^3/ul Current Medications Medications (Trade) Dose Ordered Sig/Osmar Route PRN Reason Start Time Stop Time Status Last Admin Dose Admin Albuterol (Proventil 0.5% (Neb)) 15 mg ONCE STAT INH 04/06/17 06:15 04/06/17 06:16 DC 04/06/17 06:24 Ipratropium [place] (Atrovent 0.02% (Neb)) 1 mg ONCE STAT INH 04/06/17 06:15 04/06/17 06:16 DC 04/06/17 06:24 Prednisone (Prednisone) 60 mg ONCE STAT PO 04/06/17 06:15 04/06/17 06:16 DC 04/06/17 07:15 Azithromycin (Zithromax) 500 mg ONCE ONCE PO 04/06/17 06:30 04/06/17 06:31 DC 04/06/17 07:13 Ondansetron HCl (Zofran Inj) 4 mg BRIDGE ORDER PRN IV NAUSEA AND/OR VOMITING 04/06/17 07:30 04/07/17 07:29 Acetaminophen (Tylenol Tab) 650 mg ER BRIDGE PRN PO MILD PAIN/FEVER 04/06/17 07:30 04/07/17 07:29 Procedures/MDM Chest X-ray 1V Interpreted by me: Soft Tissue: No acute abnormalities Bones: No acute abnormalities Mediastinum/Cardiac Silhouette/Lungs: No acute abnormalities Patient is a 61-year-old male with COPD who presents with what appears to be an acute COPD exacerbation. After albuterol and Atrovent in the emergency department his breathing became more labored and he was no longer speaking in full sentences. BiPAP therapy was initiated. The patient feels better. The patient will be admitted to a medical surgical bed under the care of Dr. Woodall from the panel team. I doubt pneumonia, pneumothorax, or pulmonary embolism. The patient was given prednisone and Zithromax as well as albuterol and Atrovent. Critical Care: Time: 35 minutes excluding all billable procedures. Treatments/Evaluations: Close monitoring and treatment of unstable vital signs, cardiorespiratory, and neurologic status, while maintaining tight balance of fluid, respiratory, and cardiac interventions. Departure Diagnosis: Primary Impression: COPD exacerbation Additional Impression: Shortness of breath Condition: BRIGETTE Mohr MD Apr 06, 2017 08:10
[2017-04-06 08:18] LABS: TROPONIN-I < 0.012 ng/ml (0.00-0.12)
[2017-04-06] MEDS ORDERED: MAGNESIUM HYDROXIDE 30ML CUP PO PRN (10:00)
[2017-04-06] MEDS ORDERED: BISACODYL (EC) 5 MG TAB PO PRN (10:00)
[2017-04-06] MEDS ORDERED: NACL 0.9% 3 ML SYG IV SCH (10:00)
[2017-04-06] MEDS ORDERED: hydrALAzine 20 MG INJ IV PRN (10:00)
[2017-04-06] MEDS ORDERED: HYDROCODONE/APAP (5/325) TAB PO PRN (10:00)
[2017-04-06] MEDS ORDERED: morphine 2 MG INJ IV PRN (10:00)
[2017-04-06 10:12] VITALS: TEMP 98.6
[2017-04-06 10:47] VITALS: BP 126/76; PULSE 99; RESP 18
--- NOTE | 2017-04-06 10:55 | HP ---
DATE OF ADMISSION: 04/06/2017 TIME OF EVALUATION: 10 a.m. REASON FOR ADMISSION: Dyspnea. CONSULTANTS: Dr. Devon Peraza, Pulmonology. HISTORY OF PRESENT ILLNESS: This is a 61-year-old male with a past medical history of essential hypertension, COPD, coronary artery disease, ischemic cardiomyopathy with an ejection fraction of 45%, dyslipidemia and nicotine use, who came to the emergency room with a chief complaint of dyspnea. The patient was recently discharged from [facility] on 03/14 when he was admitted with chronic obstructive pulmonary disease exacerbation. The patient verbalized that he has been feeling increasingly short of breath for the past few days. He was in the process of going to [facility] on 06/05/2017 because of dyspnea; however, on his way, he felt better, so he decided to go home. The patient was complaining of a clean productive cough. The patient also verbalized that he went back to smoking cigarettes on 04/01/2017. The patient denied any fevers or chills. He denied any chest pain. The patient verbalized that he has been compliant with his medications. In the emergency room, the patient had to be put on BiPAP because of severe respiratory distress. The patient was also treated with a single dose of p.o. Zithromax and a single dose of p.o. prednisone, along with inhaled bronchodilators, with improvement in the patient's respiratory status. PAST MEDICAL HISTORY: COPD, CAD, status post stent placement, ischemic cardiomyopathy, dyslipidemia, nicotine use. PAST SURGICAL HISTORY: Denies. HOME MEDICATIONS: 1. Albuterol inhalation q.4h. p.r.n. dyspnea. 2. Aspirin 81 mg p.o. daily. 3. Plavix 75 mg p.o. daily. 4. Atorvastatin 80 mg p.o. nightly. 5. Cozaar 25 mg p.o. daily. 6. Toprol-XL 50 mg p.o. daily. 7. BuSpar 7.5 mg p.o. b.i.d. 8. Dulera 200/5, two puffs b.i.d. 9. Protonix 40 mg p.o. daily. ALLERGIES: NO KNOWN DRUG ALLERGIES. SOCIAL HISTORY: The patient lives at home. Occasional alcohol drinker. The patient continues to smoke despite his chronic obstructive pulmonary disease. Denies any illicit drug use. The patient works as a security operations manager. REVIEW OF SYSTEMS: A 12-point review of systems was made and the review of systems was negative other than what is mentioned in the history of present illness. PHYSICAL EXAMINATION: VITAL SIGNS: Temperature 97.6, pulse rate 92, respiratory rate 22, blood pressure 133/82, oxygen saturation 100% on FIO2 via BiPAP mask. GENERAL: This is a 61-year-old male, lying in bed in no significant respiratory distress. HEENT: Head normocephalic and atraumatic. Eyes, anicteric sclerae. Conjunctivae clear. ENT: Nasal septum is midline. Oral mucosa is dry. NECK: Supple. No JVD noticed. RESPIRATORY: Bilateral diminished breath sounds. Bilateral expiratory wheezing. Minimal use of accessory muscles of respiration. CARDIAC: S1, S2 heard. Regular rate and rhythm. GASTROINTESTINAL: Abdomen is soft, nontender and nondistended. Bowel sounds positive in all 4 quadrants. GENITOURINARY: Deferred. EXTREMITIES: No cyanosis, no clubbing, no edema. Peripheral pulses palpable. NEUROLOGIC: The patient is awake, alert and oriented. Cranial nerves are grossly intact. LABORATORY AND DIAGNOSTIC DATA: WBC 7.6, hemoglobin 13.9, hematocrit 41.3, platelet count 282. Sodium 146, potassium 4.4, chloride 110, carbon dioxide 20 , anion gap 12, BUN 17, creatinine 1.12, glucose 105, calcium 9.9. Troponin I less than 0.012. Chest x-ray: No acute cardiopulmonary findings. IMPRESSION: This is a 61-year-old male with multiple comorbidities including CAD , essential hypertension and COPD, who came to the emergency room with a chief complaint of dyspnea and was found to have evidence of chronic obstructive pulmonary disease exacerbation and will be admitted here for further treatment and evaluation. ASSESSMENT AND PLAN: 1. Acute hypoxic respiratory failure. This is most probably secondary to chronic obstructive pulmonary disease exacerbation. The patient will be continued on supplemental oxygen. An ABG will be obtained to evaluate the extent of hypoxia and to evaluate for any CO2 retention. 2. Chronic obstructive pulmonary disease exacerbation. The patient will be continued on inhaled bronchodilators around the clock and on a p.r.n. basis for episodes of dyspnea. The patient will also be started on a tapering dose of steroids. A pulmonology consult will be obtained on this patient. 3. Essential hypertension. The patient will be started on routine antihypertensives. The patient will also be started on p.r.n. antihypertensives for any systolic blood pressure readings greater than 160 mmHg. 4. Dyslipidemia. The patient will be continued on statins. The patient will be continued on a low cholesterol diet. 5. Coronary artery disease. Status post stenting in the past. The patient will be continued on dual antiplatelet therapy. 6. Ischemic cardiomyopathy with an ejection fraction of 45%. The patient will be continued on beta blockers and ARBs. The patient has no evidence of any underlying decompensated heart failure. 7. Nicotine use. Cessation will be advised. Plan. The patient will be admitted to the inpatient medical/surgical floor. The patient will be started on a low cholesterol diet. The patient will be started on DVT prophylaxis and gastrointestinal prophylaxis. The patient will remain a FULL CODE. Activity will be as tolerated. The rest of the patient's management will be based on the clinical course, the results of diagnostic studies, and input from consultants. Based on the patient's clinical presentation, he most probably requires at least a 1-midnight stay for further management and evaluation of his clinical presentation. The case and management of this patient was fully discussed with Dr. Hdz. VIRGIL HDZ MD, AM/LETICIA Conf#: [id number] DID#: [id number] MTDD
[2017-04-06 11:07] VITALS: Ht 170.2 cm; Wt 72.1 kg
[2017-04-06 11:44] LABS: AADO2 Arterial 56.3 mmHg (7.0-24.0); Allen Test ACCEPTAB; Arterial Base Excess -2.3 mmol/L (-3.0-3); Arterial COHb 0.3 % (0.0-3.0); Arterial HCO3 21.5 mmol/L (22.0-26.0); Arterial MetHb 0.3 % (0.0-1.5); MODE NASAL CANNULA
[2017-04-06] MEDS: LOSARTAN 25 MG TAB PO SCH (12:00)
[2017-04-06] MEDS: BUSPIRONE 5 MG TAB PO SCH ×2 (12:00→21:15)
[2017-04-06] MEDS: CLOPIDOGREL 75 MG TAB PO SCH (12:00)
[2017-04-06] MEDS: ASPIRIN 81 MG TAB PO SCH (12:00)
[2017-04-06] MEDS: METOPROLOL (XL) 25 MG TAB PO SCH (12:00)
[2017-04-06] MEDS: SALMETEROL/FLUTICASONE 250/50 INHA INH SCH ×2 (13:16→21:15)
[2017-04-06] MEDS: FAMOTIDINE 20 MG TAB PO SCH ×2 (13:31→21:15)
[2017-04-06] MEDS: METHYLPREDNISOLONE 40 MG INJ IV SCH ×2 (13:31→21:15)
[2017-04-06] MEDS: ENOXAPARIN 40 MG/0.4 ML SYG SC SCH (13:40)
[2017-04-06] MEDS: LEVALBUTEROL (NEB) 0.63 MG/3 ML AMP HHN SCH ×2 (16:35→20:00)
[2017-04-06 19:44] VITALS: BP 108/65; RESP 20
[2017-04-06] MEDS: ATORVASTATIN 80 MG TAB PO SCH (21:15)
[2017-04-06] MEDS: LEVALBUTEROL (NEB) 0.63 MG/3 ML AMP HHN PRN (23:14)
[2017-04-07] MEDS: LEVALBUTEROL (NEB) 0.63 MG/3 ML AMP HHN SCH ×4 (01:05→19:39)
[2017-04-07 05:47] LABS: ADD SCAN DIFF NO
[2017-04-07] MEDS: METHYLPREDNISOLONE 40 MG INJ IV SCH ×3 (06:01→21:12)
[2017-04-07] MEDS: PANTOPRAZOLE (EC) 40 MG TAB PO SCH (06:01)
[2017-04-07 06:18] LABS: HEMATOCRIT 37.1 % (42.0-52.0); HEMOGLOBIN 12.4 g/dl (14.0-18.0); MEAN CORPUSCULAR HGB CONC 33.4 g/dl (32.0-37.0); MEAN CORPUSCULAR VOLUME 95.6 fl (82.0-101.0); MEAN PLATELET VOLUME 8.8 fl (7.4-10.4); PLATELET COUNT 277 10^3/UL (140-415); RED BLOOD COUNT 3.88 10^6/ul (4.70-6.10); RED CELL DISTRIBUTION WIDTH 13.4 % (11.5-14.5); WHITE BLOOD COUNT 11.4 10^3/ul (4.8-10.8)
[2017-04-07] MEDS: LEVALBUTEROL (NEB) 0.63 MG/3 ML AMP HHN PRN ×2 (06:20→10:43)
[2017-04-07 06:59] LABS: ALBUMIN 3.9 g/dl (3.3-4.9); ALBUMIN/GLOBULIN RATIO 1.95; BILIRUBIN,INDIRECT 0.2 mg/dl (0-1.1); BILIRUBIN,TOTAL 0.2 mg/dl (0.2-1.3); CREATININE 1.04 mg/dl (0.61-1.24); POTASSIUM 4.4 mmol/L (3.5-5.1); TOTAL PROTEIN 5.9 g/dl (6.1-8.1)
[2017-04-07 07:09] LABS: TROPONIN-I 0.014 ng/ml (0.00-0.12)
[2017-04-07 07:19] LABS: CK-MB 2.61 ng/ml (0.0-2.4)
[2017-04-07 07:41] LABS: LYMPHOCYTES # 1.1 10^3/ul (0.8-2.9); MONOCYTE # 0.6 10^3/ul (0.3-0.9); NEUTROPHIL # 9.2 10^3/ul (1.6-7.5)
[2017-04-07 07:57] LABS: CHOL/HDL RATIO 2.7 RATIO; MAGNESIUM 2.2 mg/dl (1.7-2.5); PHOSPHORUS 3.3 mg/dl (2.5-4.9)
[2017-04-07 09:12] VITALS: BP 126/72; RESP 18
[2017-04-07] MEDS: ASPIRIN 81 MG TAB PO SCH (09:58)
[2017-04-07] MEDS: BUSPIRONE 5 MG TAB PO SCH ×2 (09:59→21:12)
[2017-04-07] MEDS: FAMOTIDINE 20 MG TAB PO SCH ×2 (10:00→21:12)
[2017-04-07] MEDS: CLOPIDOGREL 75 MG TAB PO SCH (10:00)
[2017-04-07] MEDS: LOSARTAN 25 MG TAB PO SCH (10:01)
[2017-04-07] MEDS: METOPROLOL (XL) 25 MG TAB PO SCH (10:02)
[2017-04-07] MEDS: SALMETEROL/FLUTICASONE 250/50 INHA INH SCH ×2 (10:05→21:12)
[2017-04-07] MEDS: ENOXAPARIN 40 MG/0.4 ML SYG SC SCH (10:35)
--- NOTE | 2017-04-07 12:42 | CONS ---
Date/Time of Note Date/Time of Note DATE: 04/07/17 TIME: 12:41 Consultation Date/Type/Reason Admit Date/Time Apr 06, 2017 at 07:29 Date of Consultation: Apr 07, 2017 Type of Consultation: Pulmonary Reason for Consultation Consultation dictated #[id number] Past Surgical History Past Surgical Hx: no surgical history Social History Smoking Status: Current some day smoker Exam/Review of Systems Vital Signs Vitals Vital Signs Date Time Temp Pulse Resp B/P Pulse Ox O2 Delivery O2 Flow Rate FiO2 04/07/17 10:45 98 20 98 Nasal Cannula 2.0 04/07/17 09:12 97.7 126/72 04/06/17 16:36 28 Intake and Output 04/06/17 04/06/17 04/07/17 15:00 23:00 07:00 Intake Total 400 ml Balance 400 ml Results Result Diagram: 04/07/17 0440 04/07/17 0510 Results 24 hrs Laboratory Tests Test 04/07/17 04:40 04/07/17 04:55 04/07/17 05:10 White Blood Count 11.4 #H Red Blood Count 3.88 L Hemoglobin 12.4 L Hematocrit 37.1 L Mean Corpuscular Volume 95.6 Mean Corpuscular Hemoglobin 32.0 Mean Corpuscular Hemoglobin Concent 33.4 Red Cell Distribution Width 13.4 Platelet Count 277 Mean Platelet Volume 8.8 Neutrophils % 81.0 H Band Neutrophils % 4.0 Lymphocytes % 10.0 L Monocytes % 5.0 Eosinophils % Neutrophils # 9.2 H Lymphocytes # 1.1 Monocytes # 0.6 Eosinophils # Phosphorus Level 3.3 Magnesium Level 2.2 Creatine Kinase 123 Creatine Kinase Index 2.1 Creatinine Kinase MB (Mass) 2.61 H Troponin I 0.014 Triglycerides Level 108 Cholesterol Level 153 LDL Cholesterol, Calculated 76 HDL Cholesterol 55 Cholesterol/HDL Ratio 2.7 Sodium Level 139 Potassium Level 4.4 Chloride Level 109 Carbon Dioxide Level 21 Anion Gap 13 Blood Urea Nitrogen 26 H Creatinine 1.04 Glucose Level 138 Calcium Level 10.0 Total Bilirubin 0.2 Direct Bilirubin 0.00 Indirect Bilirubin 0.2 Aspartate Amino Transf (AST/SGOT) 36 Alanine Aminotransferase (ALT/SGPT) 71 H Alkaline Phosphatase 61 Total Protein 5.9 L Albumin 3.9 Globulin 2.00 Albumin/Globulin Ratio 1.95 Medications Medications Current Medications Ondansetron HCl (Zofran Inj) 4 mg Q6H PRN IV NAUSEA AND/OR VOMITING; Start at 10:00 Acetaminophen (Tylenol Tab) 650 mg Q6H PRN PO PAIN LEVEL 1-3 OR FEVER; Start at 10:00 Acetaminophen/ Hydrocodone Bitart ([place]ese (5/325)) 1 tab Q6H PRN PO MODERATE PAIN LEVEL 4-6; Start 04/06/17 at 10:00 Morphine Sulfate (morphine) 2 mg Q4H PRN IV SEVERE PAIN LEVEL 7-10; Start 04/06 at 10:00 Magnesium Hydroxide (Milk Of Mag) 30 ml DAILY PRN PO CONSTIPATION; Start at 10:00 Bisacodyl (Dulcolax) 5 mg DAILY PRN PO CONSTIPATION; Start 04/06/17 at 10:00 Famotidine (Pepcid) 20 mg Q12 PO Last administered on 04/07/17 10:00; Admin Dose 20 MG; Start 04/06/17 at 12:00 Enoxaparin Sodium (Lovenox) 40 mg DAILY SC Last administered on 04/07/17 10:35 ; Admin Dose 40 MG; Start 04/06/17 at 12:00 Hydralazine HCl (Apresoline) 10 mg Q6H PRN IV SBP>160; Start 04/06/17 at 10:00 Aspirin (Aspirin) 81 mg DAILY PO Last administered on 04/07/17 09:58; Admin Dose 81 MG; Start 04/06/17 at 12:00 Atorvastatin Calcium (Lipitor) 80 mg HS PO Last administered on 04/06/17 21:15 ; Admin Dose 80 MG; Start 04/06/17 at 21:00 Buspirone HCl (Buspar) 7.5 mg BID PO Last administered on 04/07/17 09:59; Admin Dose 7.5 MG; Start 04/06/17 at 12:00 Clopidogrel Bisulfate (plaVIX) 75 mg DAILY PO Last administered on 04/07/17 10 :00; Admin Dose 75 MG; Start 04/06/17 at 12:00 Losartan Potassium (Cozaar) 25 mg DAILY PO Last administered on 04/07/17 10:01 ; Admin Dose 25 MG; Start 04/06/17 at 12:00 Metoprolol Succinate (Toprol Xl) 50 mg DAILY PO Last administered on 04/07/17 10:02; Admin Dose 50 MG; Start 04/06/17 at 12:00 Pantoprazole (Protonix Tab) 40 mg DAILY@06 PO Last administered on 04/07/17 06 :01; Admin Dose 40 MG; Start 04/07/17 at 06:00 Salmeterol Xinafoate/ Fluticasone (Advair 250/50 Diskus) 1 inh BID INH Last administered on 04/07/17 10:05; Admin Dose 1 INH; Start 04/06/17 at 12:00 Methylprednisolone Sodium Succinate (Solu-Medrol) 40 mg Q8 IV Last administered on 04/07/17 06:01; Admin Dose 40 MG; Start 04/06/17 at 14:00 LA NENA JOHNSON Apr 07, 2017 12:41
--- NOTE | 2017-04-07 13:08 | CONS ---
DATE OF ADMISSION: 04/06/2017 DATE OF CONSULTATION: 04/07/2017 TIME: 12:35 p.m. REFERRING PHYSICIAN: Dr. Cuello REASON FOR REFERRAL: Evaluation of chronic obstructive pulmonary disease exacerbation. HISTORY OF PRESENT ILLNESS: Mr. Thompson is a pleasant 61-year-old white male who came into the [facility] room with a few days' history of shortness of breath and wheezing. The patient also was havi ng some scant cough. He was seen earlier at [place] [facility] on 04/05/2017; however, he felt better and decided that he wanted to go home. However, the patient came back to the ER with similar sympto ms. Upon evaluation the patient was diagnosed with COPD exacerbation and admitted to the hospital. According to the patient, he has markedly improved now overnight and wants to go home. He denies a [place] high fever, chills, any sore throat, body aches or myalgias. PAST MEDICAL HISTORY: 1. COPD. 2. History of coronary artery disease with stent placement. 3. Ischemic cardiomyopathy. 4. Tobacco abuse. 5. Hyperlipidemia. HOME MEDICATIONS: 1. Albuterol q.4h. 2. Aspirin 81 mg a day. 3. Plavix 75 mg a day. 4. Cozaar 25 mg a day. 5. Toprol 50 mg daily. 6. BuSpar 7.5 mg b.i.d. 7. Dulera 200/5 two puffs b.i.d. 8. Protonix 40 mg a day. ALLERGIES: NONE. SOCIAL HISTORY: The patient smokes about a half pack a day; has a history of alcohol abuse. FAMILY HISTORY: He is single. No history of any illnesses in the family. OCCUPATIONAL HISTORY: The patient is currently on disability. PHYSICAL EXAMINATION: GENERAL: Elderly male, awake, alert, currently in no distress. VITAL SIGNS: Temperature 97.6 degrees Fahrenheit, respiratory rate of 18 per minute, blood pressure 130/80, O2 saturations 100% on 2 liters nasal cannula, heart rate of 92 per minute. HEENT EXAMINATION: Supple. NECK: No JVD, no lymphadenopathy. Midline trachea. No thyromegaly. Pharynx is clear. No neck bru its. CHEST EXAMINATION: Diminished, but clear breath sounds. No added sounds. HEART: S1, S2 audible. No murmurs. A regular rhythm. ABDOMEN: Soft, nontender, nondistended. No organomegaly. Bowel sounds audible. EXTREMITIES: No peripheral edema. Pulses are 1+ bilaterally. There is no clubbing. CAFETERIA AIDE EXAM: Cranial nerves are normal. There is no motor or sensory deficit. Chest x-ray was reviewed from yesterday, which is showing no acute infiltrates. Lung sandoval are trip ar. LABORATORY: Today white count is 11.4, it was 7.6 yesterday. Hemoglobin from today is 12.4, platel et count of 277. Sodium 139, potassium 4.4, chloride 109, bicarbonate 21, glucose of 138, BUN 26, c reatinine 1.0. ABG done yesterday at 10:00 a.m. on 1 liter nasal cannula, a pH of 7.41, pCO2 of 34, pO2 of 74. IN HOSPITAL MEDICATIONS: 1. Aspirin 81 mg a day. 2. Lipitor 80 mg a day. 3. BuSpar 7.5 mg b.i.d. 4. Plavix 75 mg a day. 5. Lovenox 40 mg a day. 6. Pepcid 20 mg q.12h. 7. Xopenex q.6h. 8. Cozaar 25 mg daily. 9. Metoprolol 50 mg daily. 10. Protonix 40 mg a day. 11. Advair 250/50, 1 puff twice a day. ASSESSMENT AND PLAN: 1. Patient admitted for COPD exacerbation, with significant clinical improvement. 2. Stable hypertension. 3. Stable coronary artery disease. RECOMMENDATIONS: Continue the current treatment. Consider discharge home. Dictated By: LA NENA FONSECA/LETICIA Conf#: [id number] DID#: [id number]
--- NOTE | 2017-04-07 18:46 | PN ---
Date/Time of Note Date/Time of Note DATE: 04/07/17 TIME: 18:42 Assessment/Plan VTE Prophylaxis VTE Prophylaxis Intervention: SCD's Lines/Catheters IV Catheter Type (from [facility]): Saline Lock Assessment/Plan Assessment/Plan 1. Acute hypoxic respiratory failure 2/2 acute COPD exacerbation 2. Chronic obstructive pulmonary disease exacerbation 3. Essential hypertension. 4. Dyslipidemia. 5. Coronary artery disease. Status post stenting in the past. The patient will be continued on dual antiplatelet therapy. 6. Ischemic cardiomyopathy with an ejection fraction of 45%. The patient will be continued on beta blockers and ARBs. The patient has no evidence of any underlying decompensated heart failure. 7. Nicotine use. Plan: discussed about smokign cessation IV solu medrol for COPD exacerbation Breathign Rx ATC and prn Bp stable, continue current Meds and IV hydralazine ambulate and measure oxygen saturation possible d/c over the weekend SCD for DVT prophylaxis Subjective 24 Hr Interval Summary Free Text/Dictation c/o SOB, still wheezing, accidentally cut his left ear while shaving ear hair Exam/Review of Systems Vital Signs Vitals Vital Signs Date Time Temp Pulse Resp B/P Pulse Ox O2 Delivery O2 Flow Rate FiO2 04/07/17 13:57 2.0 04/07/17 13:24 95 20 98 Nasal Cannula 04/07/17 09:12 97.7 126/72 04/06/17 16:36 28 Intake and Output 04/06/17 04/06/17 04/07/17 15:00 23:00 07:00 Intake Total 400 ml Balance 400 ml Exam Constitutional: alert Head: normocephalic ENMT: nl external ears & nose Neck: non-tender, supple Respiratory: clear to auscultation, diminished breath sounds, wheezing Cardiovascular: nl pulses, regular rate and rhythm Gastrointestinal: non-tender, soft Musculoskeletal: nl extremities to inspection Neurological: BOX ANNEALER II-XII intact Results Result Diagram: 04/07/17 0440 04/07/17 0510 Results 24 hrs Laboratory Tests Test 04/07/17 04:40 04/07/17 04:55 04/07/17 05:10 White Blood Count 11.4 #H Red Blood Count 3.88 L Hemoglobin 12.4 L Hematocrit 37.1 L Mean Corpuscular Volume 95.6 Mean Corpuscular Hemoglobin 32.0 Mean Corpuscular Hemoglobin Concent 33.4 Red Cell Distribution Width 13.4 Platelet Count 277 Mean Platelet Volume 8.8 Neutrophils % 81.0 H Band Neutrophils % 4.0 Lymphocytes % 10.0 L Monocytes % 5.0 Eosinophils % Neutrophils # 9.2 H Lymphocytes # 1.1 Monocytes # 0.6 Eosinophils # Phosphorus Level 3.3 Magnesium Level 2.2 Creatine Kinase 123 Creatine Kinase Index 2.1 Creatinine Kinase MB (Mass) 2.61 H Troponin I 0.014 Triglycerides Level 108 Cholesterol Level 153 LDL Cholesterol, Calculated 76 HDL Cholesterol 55 Cholesterol/HDL Ratio 2.7 Sodium Level 139 Potassium Level 4.4 Chloride Level 109 Carbon Dioxide Level 21 Anion Gap 13 Blood Urea Nitrogen 26 H Creatinine 1.04 Glucose Level 138 Calcium Level 10.0 Total Bilirubin 0.2 Direct Bilirubin 0.00 Indirect Bilirubin 0.2 Aspartate Amino Transf (AST/SGOT) 36 Alanine Aminotransferase (ALT/SGPT) 71 H Alkaline Phosphatase 61 Total Protein 5.9 L Albumin 3.9 Globulin 2.00 Albumin/Globulin Ratio 1.95 Medications Medications Current Medications Ondansetron HCl (Zofran Inj) 4 mg Q6H PRN IV NAUSEA AND/OR VOMITING; Start at 10:00 Acetaminophen (Tylenol Tab) 650 mg Q6H PRN PO PAIN LEVEL 1-3 OR FEVER; Start at 10:00 Acetaminophen/ Hydrocodone Bitart ([place] (5/325)) 1 tab Q6H PRN PO MODERATE PAIN LEVEL 4-6; Start 04/06/17 at 10:00 Morphine Sulfate (morphine) 2 mg Q4H PRN IV SEVERE PAIN LEVEL 7-10; Start 04/06 at 10:00 Magnesium Hydroxide (Milk Of Mag) 30 ml DAILY PRN PO CONSTIPATION; Start at 10:00 Bisacodyl (Dulcolax) 5 mg DAILY PRN PO CONSTIPATION; Start 04/06/17 at 10:00 Famotidine (Pepcid) 20 mg Q12 PO Last administered on 04/07/17 10:00; Admin Dose 20 MG; Start 04/06/17 at 12:00 Enoxaparin Sodium (Lovenox) 40 mg DAILY SC Last administered on 04/07/17 10:35 ; Admin Dose 40 MG; Start 04/06/17 at 12:00 Hydralazine HCl (Apresoline) 10 mg Q6H PRN IV SBP>160; Start 04/06/17 at 10:00 Aspirin (Aspirin) 81 mg DAILY PO Last administered on 04/07/17 09:58; Admin Dose 81 MG; Start 04/06/17 at 12:00 Atorvastatin Calcium (Lipitor) 80 mg HS PO Last administered on 04/06/17 21:15 ; Admin Dose 80 MG; Start 04/06/17 at 21:00 Buspirone HCl (Buspar) 7.5 mg BID PO Last administered on 04/07/17 09:59; Admin Dose 7.5 MG; Start 04/06/17 at 12:00 Clopidogrel Bisulfate (plaVIX) 75 mg DAILY PO Last administered on 04/07/17 10 :00; Admin Dose 75 MG; Start 04/06/17 at 12:00 Losartan Potassium (Cozaar) 25 mg DAILY PO Last administered on 04/07/17 10:01 ; Admin Dose 25 MG; Start 04/06/17 at 12:00 Metoprolol Succinate (Toprol Xl) 50 mg DAILY PO Last administered on 04/07/17 10:02; Admin Dose 50 MG; Start 04/06/17 at 12:00 Pantoprazole (Protonix Tab) 40 mg DAILY@06 PO Last administered on 04/07/17 06 :01; Admin Dose 40 MG; Start 04/07/17 at 06:00 Salmeterol Xinafoate/ Fluticasone (Advair 250/50 Diskus) 1 inh BID INH Last administered on 04/07/17 10:05; Admin Dose 1 INH; Start 04/06/17 at 12:00 Methylprednisolone Sodium Succinate (Solu-Medrol) 40 mg Q8 IV Last administered on 04/07/17 14:18; Admin Dose 40 MG; Start 04/06/17 at 14:00 CYRUS WILSON MD Apr 07, 2017 18:46
[2017-04-07 19:33] VITALS: BP_SYST 0; BP_SYST 146; BP_DIAS 0; BP_DIAS 90; RESP 0; RESP 21
[2017-04-07 19:59] VITALS: BP 132/79; RESP 19
[2017-04-07] MEDS ORDERED: ZOLPIDEM 5 MG TAB PO ONE (21:00)
[2017-04-07] MEDS: ATORVASTATIN 80 MG TAB PO SCH (21:12)
[2017-04-08] MEDS: LEVALBUTEROL (NEB) 0.63 MG/3 ML AMP HHN SCH ×2 (01:44→07:46)
[2017-04-08] MEDS: PANTOPRAZOLE (EC) 40 MG TAB PO SCH (05:32)
[2017-04-08] MEDS: METHYLPREDNISOLONE 40 MG INJ IV SCH ×2 (05:32→12:05)
[2017-04-08 06:06] LABS: ADD SCAN DIFF NO
[2017-04-08 06:22] LABS: BASOPHILS % 0.1 % (0.0-2.0); HEMOGLOBIN 12.2 g/dl (14.0-18.0); LYMPHOCYTES # 1.3 10^3/ul (0.8-2.9); LYMPHOCYTES % 9.2 % (15.0-51.0); MEAN CORPUSCULAR HEMOGLOBIN 32.4 pg (29.0-33.0); MEAN CORPUSCULAR HGB CONC 33.9 g/dl (32.0-37.0); MEAN CORPUSCULAR VOLUME 95.7 fl (82.0-101.0); MEAN PLATELET VOLUME 8.8 fl (7.4-10.4); MONOCYTE # 0.7 10^3/ul (0.3-0.9); MONOCYTES % 4.9 % (0.0-11.0); NEUTROPHIL # 12.1 10^3/ul (1.6-7.5); NEUTROPHILS % 85.2 % (39.0-77.0); PLATELET COUNT 313 10^3/UL (140-415); RED BLOOD COUNT 3.76 10^6/ul (4.70-6.10); RED CELL DISTRIBUTION WIDTH 13.8 % (11.5-14.5); WHITE BLOOD COUNT 14.2 10^3/ul (4.8-10.8)
[2017-04-08 06:46] LABS: CALCIUM 9.6 mg/dl (8.4-10.2); CREATININE 1.14 mg/dl (0.61-1.24); POTASSIUM 4.3 mmol/L (3.5-5.1)
[2017-04-08 07:52] VITALS: BP 125/72; RESP 20
[2017-04-08] MEDS: SALMETEROL/FLUTICASONE 250/50 INHA INH SCH (10:14)
[2017-04-08] MEDS: ASPIRIN 81 MG TAB PO SCH (10:15)
[2017-04-08] MEDS: BUSPIRONE 5 MG TAB PO SCH (10:16)
[2017-04-08] MEDS: LOSARTAN 25 MG TAB PO SCH (10:16)
[2017-04-08] MEDS: FAMOTIDINE 20 MG TAB PO SCH (10:16)
[2017-04-08] MEDS: METOPROLOL (XL) 25 MG TAB PO SCH (10:17)
[2017-04-08] MEDS: CLOPIDOGREL 75 MG TAB PO SCH (10:17)
[2017-04-08] MEDS: ENOXAPARIN 40 MG/0.4 ML SYG SC SCH (10:20)
--- NOTE | 2017-04-08 11:08 | PDOCDIS ---
Discharge Instructions DIAGNOSIS Discharge Diagnosis: COPD exacerbation. CONDITION Patient Condition: Stable HOME CARE INSTRUCTIONS: Diet Instructions: Low Fat /Cholesterol FOLLOW UP/APPOINTMENTS Appointments 1. Ge Baumann MD Specialty: Internal Medicine Office Address: [address] [place] [address] Office 2. Alonzo Pond MD Specialty: Pulmonary Medicine Office Address [address] [place] [address] Office OTHER ORDERS: Other Orders: 1. Take medications as per prescription. 2. Follow a cardiac diet. 3. Follow-up with your primary care physician in 1 week. If you do not have a primary care physician please call Dr. Ge Baumann's office. Please have your primary care physician arrange for outpatient pulmonary follow-up with Dr. Pond. 4. Avoid tobacco use. 5. Please call 911 or go to the nearest emergency room if you have any chest pain or significant shortness of breath. VIRGIL ORTIZ NP Apr 08, 2017 11:08
[2017-04-08] MEDS ORDERED: PRED50TA PO (11:11)
--- NOTE | 2017-04-08 12:25 | DS ---
DATE OF ADMISSION: 04/06/2017 DATE OF DISCHARGE: 04/08/2017 FINAL DIAGNOSES: 1. Chronic obstructive pulmonary disease exacerbation. 2. Acute on chronic hypoxic respiratory failure secondary to chronic obstructive pulmonary disease exacerbation. 3. Coronary artery disease. 4. Ischemic cardiomyopathy with ejection fraction of 45%. 5. Dyslipidemia. 6. Nicotine use. ORDNANCE ENGINEER: Devon Peraza MD, Pulmonary. HOSPITAL COURSE: This is a 61-year-old male with a past medical history of essential hypertension, COPD, coronary artery disease, ischemic cardiomyopathy with ejection fraction of 45%, dyslipidemia and nicotine use, who came to the emergency room with chief complaint of dyspnea. The patient was recently discharged from [facility] on 03/14/2017, when he was admitted with COPD exacerbation. The patient verbalized that he has been feeling increasingly short of breath for the past few days or so. The patient was complaining of clean productive cough. The patient also verbalized that he went back to smoking cigarettes on 04/01/2017. He denied any fevers or chills. He denied any chest pain. The patient verbalized that he has been compliant with all his medications. In the emergency room, the patient had to be put on BiPAP therapy because of severe respiratory distress. The patient was also treated with a single dose of prednisone and p.o. Zithromax along with inhaled bronchodilators with improvement in the patient's respiratory status. Provided the patient's history of present illness, his presenting symptoms, and the comorbidities, a clinical decision was made to admit the patient to inpatient setting to have him further evaluated. The patient was admitted to inpatient medical/surgical floor. Pulmonology consult was called on this patient. The patient was started on tapering dose of IV steroids. The patient's respiratory status improved over the course of his hospital stay. The patient had an ABG done on low flow O2 that did not show CO2 retention, but it showed minimal hypoxemia. The patient has underlying CAD status post stenting in the past. He was maintained on dual antiplatelet therapy. He has a history of cardiomyopathy with ejection fraction of 45%. The patient was maintained on beta blockers and ARBs. The patient has underlying dyslipidemia. He was maintained on statins for the same. The patient was continued on inhaled bronchodilators. The patient continues to smoke despite his clinical condition. The patient was instructed multiple times on the importance of quitting smoking. The patient had a stable hospital course. The patient was cleared by consultants to be discharged home. The patient denied any complaints at the time of discharge. DISCHARGE DISPOSITION/PLAN: The patient will be discharged home today. The patient was instructed to take medications as per prescription. He was instructed to follow a cardiac diet. He was instructed to follow up with his primary care physician in 1 week and if he does not have a primary care physician, to call Dr. Ge Baumann's clinic. He was instructed to follow up with pulmonary as an outpatient. The patient was instructed to avoid using tobacco. He was instructed to call 911 or go to the nearest emergency room if he has any chest pain or significant shortness of breath. The patient verbalized understanding of his discharge instructions. CONDITION AT DISCHARGE: Stable. DISCHARGE MEDICATIONS: 1. ProAir HFA 8.5 grams 2 puffs inhaled q.4h. p.r.n. shortness of breath. 2. Dulera 200/5 mcg 2 puffs inhalation b.i.d. 3. Prednisone 40 mg p.o. daily x2 days, then prednisone 20 mg p.o. daily x2 days, then prednisone 10 mg p.o. daily x2 days, then prednisone 5 mg p.o. daily x2 days. 4. Albuterol 2.5 mg nebulizer solution q.4h. p.r.n. dyspnea. 5. Aspirin 81 mg p.o. daily. 6. Clopidogrel 75 mg p.o. daily. 7. Atorvastatin 80 mg p.o. daily at bedtime. 8. Losartan 25 mg p.o. daily. 9. Toprol-XL 50 mg p.o. daily. 10. Protonix 40 mg p.o. daily. PERTINENT LABORATORY AND DIAGNOSTIC DATA: 1. Latest CBC: WBC 14.2, hemoglobin 12.2, hematocrit 36.0, platelet count 313. 2. Latest BMP: Sodium 138, potassium 4.3, chloride 108, carbon dioxide 23, anion gap 11, BUN 33, creatinine 1.14, glucose 124, calcium 9.6. 3. Hemoglobin A1c 5.5. 4. Fasting lipid panel: Triglycerides 108, total cholesterol 153, LDL 76, HDL 55. 5. Blood gas that was done on low flow O2 on 04/06/2017, pH of 7.416, pCO2 of 34.3, pO2 of 74.0, bicarbonate 21.5, oxygen saturation 94., base excess -2.3. 6. Chest x-ray done on 04/06/2017: Unremarkable chest radiograph. At this time, I would like Dr. Peraza, for seeing the patient and providing clinical recommendations. The case and management of this patient was fully discussed with Dr. Hdz. Approximately 35 minutes was spent on coordinating the discharge on this patient. VIRGIL HDZ MD, AM/LETICIA Conf#: [id number] DID#: [id number] MTDD
== END 2017-04-08 12:00 | disposition home or self-care (01) | DRG 190 ==
LOC: E/R 06:12 → MS2 07:29
PROVIDERS: ADMIT Family Medicine; ATTEND Family Medicine
PROC: 5A09357 Assistance with Respiratory Ventilation, Less than 24 Consecutive Hours, Continuous Positive Airway Pressure (ICD-10-PCS; principal; 2017-04-06)
PROC: 4A033R1 Measurement of Arterial Saturation, Peripheral, Percutaneous Approach (ICD-10-PCS; 2017-04-06)
DX: J44.1 Chronic obstructive pulmonary disease with (acute) exacerbation (principal); J96.21 Acute and chronic respiratory failure with hypoxia; I25.10 Atherosclerotic heart disease of native coronary artery without angina pectoris; I25.2 Old myocardial infarction; I10 Essential (primary) hypertension; F17.210 Nicotine dependence, cigarettes, uncomplicated; E78.5 Hyperlipidemia, unspecified; I25.5 Ischemic cardiomyopathy; Z79.02 Long term (current) use of antithrombotics/antiplatelets; Z95.5 Presence of coronary angioplasty implant and graft; Z79.82 Long term (current) use of aspirin
CPT/HCPCS: 36415; 36600; 71010; 80048; 80053; 80061; 82550; 82553; 82652; 82803; 83036; 83735; 84100; 84439; 84443; 84484; 85025; 94640; 94644; 94660; J1650; J2920; J7512

== ENCOUNTER 2017-05-06 02:58 | Inpatient (IN) | payer MEDICAID ==
[2017-05-06] VITALS (12 sets, daily range): BP systolic 99–114; BP diastolic 62–70; PULSE 101–107; RESP 18–19; TEMP 97.2; Ht 170.2 cm; Wt 72.5 kg
[~2017-05-06] VITALS: Ht 170.2 cm; Wt 72.5 kg
[~2017-05-06 02:58] MED LIST changes: -ALBU18HF INHALATION; +BUS5 PO; +CLOP75TA27 PO; +PRED50TA PO; -TICA90TA PO
[2017-05-06] MEDS ORDERED: MAGNESIUM SULFATE ONE (03:01)
[2017-05-06] MEDS ORDERED: D5W ONE (03:01)
[2017-05-06] MEDS ORDERED: METHYLPREDNISOLONE 125 MG INJ IV STA (03:03)
[2017-05-06] MEDS ORDERED: IPRATROPIUM (NEB) 0.5 MG/2.5 ML AMP INH STA (03:03)
[2017-05-06] MEDS ORDERED: LEVALBUTEROL (NEB) 1.25 MG/0.5 ML AMP INH STA (03:03)
--- NOTE | 2017-05-06 03:03 | ERA ---
ER Documentation Chief Complaint Date/Time DATE: 05/06/17 TIME: 03:03 Chief Complaint Shortness of breath HPI The patient is a 61-year-old male, presenting to the ER because of acute shortness of breath for 1 day, worse tonight. He was discharged last month for acute COPD exacerbation. He is unable to answer question in yes or no sentences. He denies fever, neck pain, chest pain, abdominal pain, vomiting, dysuria, diarrhea. The history is limited due to his condition, mostly obtained from the medical record and safety spec. He does smoke Past medical history: Asthma, COPD, CAD, depression, cardiomyopathy with low EF of 45%, dyslipidemia Past surgical history: Stent PCI ROS All systems reviewed and are negative except as per history of present illness. Medications Home Meds Active Scripts Prednisone* (Prednisone*) 50 Mg Tablet, 40 MG PO DAILY for 2 Days, #2 TAB Prednisone 40 mg p.o. daily 2 days, then Prednisone 20 mg p.o. daily 2 days, then Prednisone 10 mg p.o. daily 2 days, then Prednisone 5 mg p.o. daily 2 days. Prov:VIRGIL ORTIZ NP 04/08/17 Albuterol Sulfate* (Albuterol Sulfate* Neb) 0.083%-3 Ml Neb, 2.5 MG NEB Q4H, # 30 VIAL Prov:VIRGIL ORTIZ NP 03/14/17 Mometasone-Formoterol (Dulera) 200-5 Mcg/Inh - 13 Gm Hfa.aer.ad, 2 PUFFS INHALATION BID for 30 Days, #1 INHALER Prov:VIRGIL ORTIZ NP 03/14/17 Pantoprazole* (Pantoprazole*) 40 Mg Tablet.dr, 40 MG PO DAILY@06 for 20 Days Prov:PETER DEY 09/01/16 Metoprolol Succinate* (Toprol XL*) 25 Mg Tab.sr.24h, 50 MG PO DAILY for 30 Days Prov:PETER DEY 09/01/16 Atorvastatin* (Atorvastatin*) 80 Mg Tablet, 80 MG PO HS for 30 Days, TAB Prov:PETER DEY 09/01/16 Aspirin (Aspirin) 81 Mg Chew, 81 MG PO DAILY for 30 Days, TAB Prov:PETER DEY 09/01/16 Reported Medications Losartan Potassium* (Losartan Potassium*) 50 Mg Tablet, 50 MG PO BID, TAB 05/06/17 Albuterol Sulfate* (Proair HFA*) 8.5 Gm Hfa.aer.ad, 2 PUFF INH Q4, #1 INHALER 05/06/17 Buspirone Hcl* (Buspar*) 5 Mg Tab, 7.5 MG PO BID, TAB 04/06/17 Clopidogrel Bisulfate (Clopidogrel) 75 Mg Tablet, 75 MG PO DAILY, #30 TAB 04/06/17 Discontinued Scripts Losartan Potassium* (Cozaar*) 25 Mg Tablet, 25 MG PO DAILY for 30 Days, TAB Prov:PETER DEY 09/01/16 Allergies Allergies: Coded Allergies: No Known Allergy (Unverified , 05/06/17) PMhx/Soc History of Surgery: No Anesthesia Reaction: No Hx Neurological Disorder: No Hx Respiratory Disorders: Yes (COPD) Hx Cardiac Disorders: Yes (HEART ATTACK WITH STENT PLACEMENT ) Hx Psychiatric Problems: Yes (DEPRESSION) Hx Miscellaneous Medical Probl: No Hx Alcohol Use: Yes (SOCIAL DRINKING) Hx Substance Use: No Hx Tobacco Use: Yes Physical Exam Vitals Vital Signs Date Time Temp Pulse Resp B/P Pulse Ox O2 Delivery O2 Flow Rate FiO2 05/06/17 04:34 114 24 98/81 100 BIPAP 05/06/17 03:40 121 23 138/76 100 BIPAP 05/06/17 03:20 125 100 45 05/06/17 03:00 97.6 131 35 148/96 100 Physical Exam Const: Acute severe respiratory distress. Head: Atraumatic. Eyes: Normal Conjunctiva. ENT: Normal External Ears, Nose and Mouth. Neck: Full range of motion. No meningismus. Resp: Bilateral expiratory wheezes, tachypneic Cardio: Regular tachycardic Abd: Soft, non distended, normal bowel sounds, non tender. Skin: No petechiae or rashes. Back: No midline or flank tenderness. Ext: No cyanosis, or edema. Neur: Awake and alert. No focal deficit Psych: Normal Mood and Affect. Result Diagram: 05/06/17 0300 05/06/17 0300 Results 24 hrs Laboratory Tests Test 05/06/17 03:00 05/06/17 03:15 White Blood Count 12.810^3/ul Red Blood Count 4.5210^6/ul Hemoglobin 14.6g/dl Hematocrit 43.0% Mean Corpuscular Volume 95.1fl Mean Corpuscular Hemoglobin 32.3pg Mean Corpuscular Hemoglobin Concent 34.0g/dl Red Cell Distribution Width 12.4% Platelet Count 27548^3/UL Mean Platelet Volume 8.6fl Neutrophils % 40.0% Lymphocytes % 37.0% Monocytes % 8.0% Eosinophils % 15.0% Nucleated Red Blood Cells % 1.0/100WBC Neutrophils # 5.110^3/ul Lymphocytes # 4.710^3/ul Monocytes # 1.010^3/ul Eosinophils # 1.910^3/ul Prothrombin Time 12.6Sec Prothrombin Time Ratio 1.0 INR International Normalized Ratio 0.94 Activated Partial Thromboplast Time Pending Sodium Level 144mmol/L Potassium Level 4.5mmol/L Chloride Level 105mmol/L Carbon Dioxide Level 24mmol/L Anion Gap 20 Blood Urea Nitrogen 15mg/dl Creatinine 1.15mg/dl Glucose Level 110mg/dl Calcium Level 10.1mg/dl Total Bilirubin 0.6mg/dl Direct Bilirubin 0.00mg/dl Indirect Bilirubin 0.6mg/dl Aspartate Amino Transf (AST/SGOT) 46IU/L Alanine Aminotransferase (ALT/SGPT) 52IU/L Alkaline Phosphatase 68IU/L Total Protein 7.7g/dl Albumin 4.9g/dl Globulin 2.80g/dl Albumin/Globulin Ratio 1.75 Lactic Acid Level 1.1mmol/L Current Medications Medications (Trade) Dose Ordered Sig/Osmar Route PRN Reason Start Time Stop Time Status Last Admin Dose Admin Levalbuterol (Xopenex Neb) 3.75 mg ONCE STAT INH 05/06/17 03:03 05/06/17 03:07 DC 05/06/17 03:16 Ipratropium [place] (Atrovent 0.02% (Neb)) 1.5 mg ONCE STAT INH 05/06/17 03:03 05/06/17 03:07 DC 05/06/17 03:17 Methylprednisolone Sodium Succinate 125 mg 125 mg ONCE STAT IV 05/06/17 03:03 05/06/17 03:07 DC 05/06/17 03:00 Magnesium Sulfate 50 ml @ 25 mls/hr ONCE ONCE IVPB 05/06/17 03:30 05/06/17 05:29 05/06/17 03:00 Levofloxacin/ Dextrose (Levaquin 750 Mg/ D5W 150 ml (Pmx)) 150 ml @ 100 mls/hr ONCE ONCE IVPB 05/06/17 04:30 05/06/17 05:59 05/06/17 04:25 Diphenhydramine HCl 50 mg 50 mg ONCE ONCE IV 05/06/17 05:00 05/06/17 05:01 05/06/17 04:39 Ceftriaxone Sodium 50 ml @ 100 mls/hr ONCE ONCE IVPB 05/06/17 05:00 05/06/17 05:29 05/06/17 04:44 Azithromycin (Zithromax 500mg/ NS (Pmx)) 250 ml @ 250 mls/hr ONCE ONCE IVPB 05/06/17 05:00 05/06/17 05:59 Diphenhydramine HCl (Benadryl) 50 mg STK-MED ONCE .ROUTE 05/06/17 04:36 05/06/17 04:37 DC Procedures/MDM UA, PT/PTT are pending [place] [address] Radiology Main Line: [phone] DIAGNOSTIC IMAGING REPORT Patient: SERA SPENCE : 1955 Age: 61 Sex: M MR #: [id number] DOS: 05/06/17 0303 Ordering MD: CAROLE SOL MD Location: E/R Room/Bed: PROCEDURE: Chest. CLINICAL INDICATION: Respiratory distress. TECHNIQUE: 2 frontal views of the chest were obtained. COMPARISON: 04/06/2017. FINDINGS: The cardiac silhouette is within normal limits. The aortic arch is unremarkable. There is no focal consolidation, vascular congestion or pleural effusion. There is no pneumothorax. IMPRESSION: No evidence for active cardiopulmonary disease. .David Corona MD, Date Time Electronically viewed and signed by .David Corona MD, on 05/06/2017 03:58 .T/ CC: CAROLE SOL MD EKG: Read by emergency physician Rate/Rhythm: Sinus tachycardia 120 beats/min QRS, ST, T-waves: No ST elevation, no T inversion, LAD, artifacts, RSR prime in V1 Impression: Abnormal EKG MEDICAL MAKING DECISION: The patient is a 71-year-old male, presenting with acute respiratory failure, acute COPD exacerbation. He was immediately put on BiPAP and he was able to tolerate BiPAP well. He was treated with Solu-Medrol 125 mg IV, Xopenex 3.75 mg and Atrovent 1.5 mg continuous nebulizer for wheezing , magnesium sulfate 2 g IV with good response. He was treated with Levaquin IV for acute COPD exacerbation, however he develops erythema at the insertion site , therefore Levaquin was discontinued. He was then treated with Benadryl 50 mg IV, Rocephin 1 g IV, Zithromax 500 mg IV with good response The differential diagnoses considered include but are not limited to asthma, COPD, pneumonia, pulmonary embolus, pleural effusion, congestive heart failure. Critical Care: Time: 35 minutes excluding all billable procedures. Treatments/Evaluations: Close monitoring and treatment of unstable vital signs, cardiorespiratory, and neurologic status, while maintaining tight balance of fluid, respiratory, and cardiac interventions. Departure Diagnosis: Primary Impression: Acute respiratory failure Additional Impression: Acute exacerbation of chronic obstructive pulmonary disease (COPD) Condition: Stable Comments I discussed the findings with the patient. I discussed the patient with the on- call hospitalist Dr. Zurita at 4:30 AM who was made aware of the lab, the treatment, the patient condition. The patient is admitted to telemetry CAROLE SOL MD May 06, 2017 03:03
[2017-05-06] MEDS ORDERED: LEVALBUTEROL (NEB) 1.25 MG/0.5 ML AMP ONE (03:05)
[2017-05-06] MEDS ORDERED: IPRATROPIUM (NEB) 0.5 MG/2.5 ML AMP ONE (03:05)
[2017-05-06] MEDS ORDERED: MAGNESIUM SULFATE 2 GM/50 ML 50 ML IVPB ONE (03:30)
[2017-05-06 03:34] LABS: ADD SCAN DIFF NO
[2017-05-06 03:42] LABS: ABNORMAL IP MESSAGE 1; HEMOGLOBIN 14.6 g/dl (14.0-18.0); MEAN CORPUSCULAR HEMOGLOBIN 32.3 pg (29.0-33.0); MEAN CORPUSCULAR VOLUME 95.1 fl (82.0-101.0); MEAN PLATELET VOLUME 8.6 fl (7.4-10.4); PLATELET COUNT 304 10^3/UL (140-415); RED BLOOD COUNT 4.52 10^6/ul (4.70-6.10); RED CELL DISTRIBUTION WIDTH 12.4 % (11.5-14.5); WHITE BLOOD COUNT 12.8 10^3/ul (4.8-10.8)
[2017-05-06 03:55] LABS: INR 0.94; PROTIME 12.6 Sec (12.2-14.2)
--- NOTE | 2017-05-06 03:59 | RADRPT ---
PROCEDURE: Chest. CLINICAL INDICATION: Respiratory distress. TECHNIQUE: 2 frontal views of the chest were obtained. COMPARISON: 04/06/2017. FINDINGS: The cardiac silhouette is within normal limits. The aortic arch is unremarkable. There is no focal consolidation, vascular congestion or pleural effusion. There is no pneumothorax. IMPRESSION: No evidence for active cardiopulmonary disease. .David Corona MD, MD Date Time Electronically viewed and signed by .David Corona MD, on 05/06/2017 03:58 .T/
[2017-05-06 04:00] LABS: ALBUMIN 4.9 g/dl (3.3-4.9); ALBUMIN/GLOBULIN RATIO 1.75; BILIRUBIN,INDIRECT 0.6 mg/dl (0-1.1); BILIRUBIN,TOTAL 0.6 mg/dl (0.2-1.3); CALCIUM 10.1 mg/dl (8.4-10.2); CREATININE 1.15 mg/dl (0.61-1.24); POTASSIUM 4.5 mmol/L (3.5-5.1); TOTAL PROTEIN 7.7 g/dl (6.1-8.1)
[2017-05-06 04:18] LABS: EOSINOPHILS # 1.9 10^3/ul (0.0-0.5); LYMPHOCYTES # 4.7 10^3/ul (0.8-2.9); NEUTROPHIL # 5.1 10^3/ul (1.6-7.5)
[2017-05-06] MEDS ORDERED: LEVOFLOXACIN 750MG/D5W (PMX) 150 ML IVPB ONE (04:30)
[2017-05-06] MEDS ORDERED: ALBU8.5H3 INH (04:32)
[2017-05-06] MEDS ORDERED: LOSA50TA6 PO (04:33)
[2017-05-06] MEDS ORDERED: DIPHENHYDRAMINE 50 MG INJ ONE (04:36)
[2017-05-06] MEDS ORDERED: AZITHROMYCIN 500MG/NS (PMX) 250 ML IVPB ONE (05:00)
[2017-05-06] MEDS ORDERED: CEFTRIAXONE 1 GM/50 ML (PMX) 50 ML IVPB ONE (05:00)
[2017-05-06] MEDS ORDERED: DIPHENHYDRAMINE 50 MG INJ IV ONE (05:00)
[2017-05-06 05:14] LABS: AADO2 Arterial 72.4 mmHg (7.0-24.0); Allen Test ACCEPTAB; Arterial Base Excess -4.5 mmol/L (-3.0-3); Arterial COHb 0.3 % (0.0-3.0); Arterial Fraction of Oxyhgb 97.7 % (93.0-99.0); Arterial HCO3 19.6 mmol/L (22.0-26.0); Arterial MetHb 0.4 % (0.0-1.5); Arterial Total Hemglobin 14.2 g/dl (12.0-18.0); Blood Gas IEPAP 15/5; Blood Gas PS 10; MODE MASK - BIPAP
[2017-05-06 05:32] LABS: PARTIAL THROMBOPLASTIN TIME 29.6 Sec (25.0-35.0)
[2017-05-06] MEDS: ALBUTEROL 0.083% (NEB) 2.5 MG/3 ML AMP NEB SCH ×5 (06:00→20:18)
[2017-05-06] MEDS ORDERED: NACL 0.9% 3 ML SYG IV SCH (06:00)
[2017-05-06] MEDS ORDERED: ONDANSETRON 4 MG INJ IV PRN (06:00)
[2017-05-06] MEDS ORDERED: ACETAMINOPHEN 325 MG TAB PO PRN (06:00)
[2017-05-06] MEDS ORDERED: BISACODYL (EC) 5 MG TAB PO PRN (06:00)
[2017-05-06] MEDS ORDERED: DOCUSATE SODIUM 100 MG CAP PO PRN (06:00)
[2017-05-06] MEDS: PANTOPRAZOLE 40 MG INJ IV SCH (06:31)
[2017-05-06] MEDS: HEPARIN 5,000 UNIT/0.5 ML VIAL SC SCH ×3 (06:38→21:34)
[2017-05-06] MEDS: LOSARTAN 50 MG TAB PO SCH ×2 (09:00→21:34)
[2017-05-06] MEDS: ALBUTEROL 18 GM INHALER INH SCH ×4 (09:00→21:00)
[2017-05-06] MEDS: ASPIRIN 81 MG TAB PO SCH (09:41)
[2017-05-06] MEDS: CLOPIDOGREL 75 MG TAB PO SCH (09:41)
[2017-05-06] MEDS: METHYLPREDNISOLONE 125 MG INJ IV SCH ×2 (09:42→21:33)
[2017-05-06] MEDS: BUSPIRONE 5 MG TAB PO SCH ×2 (09:42→21:33)
[2017-05-06] MEDS: SALMETEROL/FLUTICASONE 250/50 INHA INH SCH ×2 (09:42→21:33)
--- NOTE | 2017-05-06 09:53 | HP ---
Date/Time of Note Date/Time of Note DATE: 05/06/17 TIME: 09:51 Assessment/Plan VTE Prophylaxis VTE Prophylaxis Intervention: heparin Assessment/Plan Chief Complaint/Hosp Course 1. Acute hypoxic respiratory failure. Hypoxic. This is most probably secondary to chronic obstructive pulmonary disease exacerbation. The patient will be continued on supplemental oxygen. 2. Chronic obstructive pulmonary disease exacerbation. The patient will be continued on inhaled bronchodilators around the clock and on a p.r.n. basis for episodes of dyspnea. The patient will also be started on tapering dose of steroids. 3. Essential hypertension. The patient will be started on routine antihypertensives. 4. Dyslipidemia. The patient will be continued on statins. The patient will be continued on a low cholesterol diet. 5. Coronary artery disease. Status post stenting in the past. The patient will be continued on dual antiplatelet therapy. 6. Ischemic cardiomyopathy with an ejection fraction of 45%. The patient will be continued on beta blockers and ARBs. The patient has no evidence of any underlying decompensated heart failure. 7. Nicotine use. Cessation will be advised. Plan. The patient will be admitted to the inpatient medical/surgical floor. The patient will be started on a low cholesterol diet. The patient will be started on DVT prophylaxis and gastrointestinal prophylaxis. The patient will remain a FULL CODE. Activity will be as tolerated. The rest of the patient's management will be based on the clinical course and the results of diagnostic studies. Based on the patient's clinical presentation, he most probably requires at least a 1-midnight stay for further management and evaluation of his clinical presentation. The case and management of this patient was fully discussed with . Problems: HPI/ROS Admit Date/Time Admit Date/Time May 06, 2017 at 04:33 Hx of Present Illness This is a 61-year-old male with a past medical history of essential hypertension, COPD, coronary artery disease, ischemic cardiomyopathy with an ejection fraction of 45%, dyslipidemia and nicotine use, who came to the emergency room with a chief complaint of dyspnea. The patient apparently visited [facility] ER on 04/30/2017 with similar complaints and he was discharged home on oral prednisone. The patient verbalized that he continued to have respiratory distress. He also complained of multiple episodes of severe dyspnea for which he was using his home nebulizer. On 05/05/2017, the patient became severely short of breath and he called the paramedics. The patient denied any chest pain, nausea, vomiting, abdominal pain, diarrhea, hematochezia, dysuria, hematuria, or pyuria. The patient verbalized that he went back to smoking. In the emergency room, the patient was noticed to have minimal leukocytosis. The patient was afebrile. The patient's chest x-ray was negative for any active cardiopulmonary disease. The patient was treated with IV Solu-Medrol, inhaled bronchodilators, IV magnesium, and IV antibiotics in the emergency room. ROS Constitutional: no complaints Eyes: no complaints ENT: no complaints Respiratory: cough, shortness of breath, sputum Cardiovascular: no complaints Gastrointestinal: no complaints Genitourinary: no complaints Musculoskeletal: no complaints Skin: no complaints Neurologic: no complaints Endocrine: no complaints Lymphatic: no complaints Psychological: no complaints Immunologic: no complaints PMH/Family/Social Past Medical History Medical History: coronary artery disease, high cholesterol, hypertension, other (COPD, cardiomyopathy, nicotine use, coronary stent placement.) Past Surgical History Past Surgical Hx: no surgical history Social History Smoking Status: Former smoker Exam/Review of Systems Vital Signs Vitals Vital Signs Date Time Temp Pulse Resp B/P Pulse Ox O2 Delivery O2 Flow Rate FiO2 05/06/17 08:16 106 05/06/17 08:03 98.0 18 99/63 99 05/06/17 07:48 Nasal Cannula 2.0 05/06/17 05:20 28 Intake and Output 05/05/17 05/05/17 05/06/17 14:59 22:59 06:59 Intake Total 100 ml Balance 100 ml Exam Exam GENERAL: This is a 61-year-old male, lying in bed in no significant respiratory distress. HEENT: Head normocephalic and atraumatic. Eyes, anicteric sclerae. Conjunctivae clear. ENT: Nasal septum is midline. Oral mucosa is dry. NECK: Supple. No JVD noticed. RESPIRATORY: Bilateral diminished breath sounds. Bilateral expiratory wheezing. Minimal use of accessory muscles of respiration. CARDIAC: S1, S2 heard. Regular rate and rhythm. GASTROINTESTINAL: Abdomen is soft, nontender and nondistended. Bowel sounds positive in all 4 quadrants. GENITOURINARY: Deferred. EXTREMITIES: No cyanosis, no clubbing, no edema. Peripheral pulses palpable. NEUROLOGIC: The patient is awake, alert and oriented. Cranial nerves are grossly intact. Labs Result Diagram: 05/06/17 0300 05/06/17 0300 Medications Medications Current Medications Ondansetron HCl (Zofran Inj) 4 mg Q6H PRN IV NAUSEA AND/OR VOMITING; Start at 06:00 Methylprednisolone Sodium Succinate (Solu-Medrol) 60 mg BID IV Last administered on 05/06/17 09:42; Admin Dose 60 MG; Start 05/06/17 at 09:00 Acetaminophen (Tylenol Tab) 650 mg Q6H PRN PO PAIN LEVEL 1-3 OR FEVER; Start at 06:00 Docusate Sodium (Colace) 100 mg Q12H PRN PO CONSTIPATION; Start 05/06/17 at 06: 00 Bisacodyl (Dulcolax) 5 mg DAILY PRN PO CONSTIPATION; Start 05/06/17 at 06:00 Pantoprazole (Protonix Iv) 40 mg DAILY@06 IV Last administered on 05/06/17 06: 31; Admin Dose 40 MG; Start 05/06/17 at 06:00 Heparin Sodium (Porcine) 5000 unit 5,000 unit Q8 SC Last administered on 06:38; Admin Dose 5,000 UNIT; Start 05/06/17 at 06:00 Ceftriaxone Sodium 50 ml @ 100 mls/hr Q24H IVPB ; Start 05/07/17 at 05:00 Azithromycin (Zithromax 500mg/ NS (Pmx)) 250 ml @ 250 mls/hr Q24H IVPB ; Start 05/07/17 at 06:00 Aspirin (Aspirin) 81 mg DAILY PO Last administered on 05/06/17 09:41; Admin Dose 81 MG; Start 05/06/17 at 09:00 Atorvastatin Calcium (Lipitor) 80 mg HS PO ; Start 05/06/17 at 21:00 Buspirone HCl (Buspar) 7.5 mg BID PO Last administered on 05/06/17 09:42; Admin Dose 7.5 MG; Start 05/06/17 at 09:00 Clopidogrel Bisulfate (plaVIX) 75 mg DAILY PO Last administered on 05/06/17 09 :41; Admin Dose 75 MG; Start 05/06/17 at 09:00 Losartan Potassium (Cozaar) 50 mg BID PO ; Start 05/06/17 at 09:00 Salmeterol Xinafoate/ Fluticasone (Advair 250/50 Diskus) 1 inh BID INH Last administered on 05/06/17t 09:42; Admin Dose 1 INH; Start 05/06/17 at 09:00 Procedures Procedures CXR FINDINGS: The cardiac silhouette is within normal limits. The aortic arch is unremarkable. There is no focal consolidation, vascular congestion or pleural effusion. There is no pneumothorax. 12-Lead EKG Sinus tachycardia. Left axis deviation. VIRGIL ORTIZ NP May 06, 2017 09:53
[2017-05-06] MEDS: ATORVASTATIN 80 MG TAB PO SCH (21:34)
[2017-05-07] VITALS (12 sets, daily range): BP systolic 103–122; BP diastolic 56–87; PULSE 87–114; RESP 18–19
[2017-05-07] MEDS: ALBUTEROL 0.083% (NEB) 2.5 MG/3 ML AMP NEB SCH ×6 (00:31→20:03)
[2017-05-07] MEDS: ALBUTEROL 18 GM INHALER INH SCH ×6 (01:00→20:39)
[2017-05-07] MEDS: CEFTRIAXONE 1 GM/50 ML (PMX) 50 ML IVPB SCH (05:57)
[2017-05-07] MEDS: PANTOPRAZOLE 40 MG INJ IV SCH (05:58)
[2017-05-07] MEDS: AZITHROMYCIN 500MG/NS (PMX) 250 ML IVPB SCH (05:58)
[2017-05-07] MEDS: HEPARIN 5,000 UNIT/0.5 ML VIAL SC SCH ×3 (05:59→21:33)
[2017-05-07 07:24] LABS: ADD SCAN DIFF NO
[2017-05-07 07:30] LABS: HEMATOCRIT 35.8 % (42.0-52.0); MEAN CORPUSCULAR HGB CONC 33.5 g/dl (32.0-37.0); MEAN CORPUSCULAR VOLUME 95.5 fl (82.0-101.0); MEAN PLATELET VOLUME 8.8 fl (7.4-10.4); PLATELET COUNT 267 10^3/UL (140-415); RED BLOOD COUNT 3.75 10^6/ul (4.70-6.10); RED CELL DISTRIBUTION WIDTH 12.4 % (11.5-14.5); WHITE BLOOD COUNT 15.8 10^3/ul (4.8-10.8)
[2017-05-07 07:44] LABS: ALBUMIN/GLOBULIN RATIO 1.9; BILIRUBIN,INDIRECT 0.1 mg/dl (0-1.1); BILIRUBIN,TOTAL 0.1 mg/dl (0.2-1.3); CALCIUM 9.1 mg/dl (8.4-10.2); CHOL/HDL RATIO 2.1 RATIO; POTASSIUM 4.3 mmol/L (3.5-5.1); TOTAL PROTEIN 6.1 g/dl (6.1-8.1)
[2017-05-07 07:45] LABS: MAGNESIUM 2.2 mg/dl (1.7-2.5); PHOSPHORUS 3.1 mg/dl (2.5-4.9)
[2017-05-07 07:54] LABS: CALCIUM 9.3 mg/dl (8.4-10.2); CREATININE 0.98 mg/dl (0.61-1.24); POTASSIUM 4.2 mmol/L (3.5-5.1)
[2017-05-07 08:11] LABS: THYROID STIMULATING HORMONE 0.088 MIU/L (0.465-4.680)
[2017-05-07] MEDS: METHYLPREDNISOLONE 125 MG INJ IV SCH (08:30)
[2017-05-07] MEDS: SALMETEROL/FLUTICASONE 250/50 INHA INH SCH ×2 (08:30→20:37)
[2017-05-07] MEDS: CLOPIDOGREL 75 MG TAB PO SCH (08:31)
[2017-05-07] MEDS: ASPIRIN 81 MG TAB PO SCH (08:31)
[2017-05-07] MEDS: LOSARTAN 50 MG TAB PO SCH ×2 (08:32→20:37)
[2017-05-07] MEDS: METOPROLOL (XL) 50 MG TAB PO SCH (08:32)
[2017-05-07] MEDS: BUSPIRONE 5 MG TAB PO SCH ×2 (08:33→20:38)
[2017-05-07 09:51] LABS: EOSINOPHILS # 0.3 10^3/ul (0.0-0.5); LYMPHOCYTES # 13.7 10^3/ul (0.8-2.9); MONOCYTE # 0.9 10^3/ul (0.3-0.9); MYELOCYTES # 0.8
[2017-05-07 09:55] LABS: PLATELET ESTIMATE PLT APPEAR ADEQUATE
--- NOTE | 2017-05-07 10:09 | RADRPT ---
PROCEDURE: XR Chest. CLINICAL INDICATION: Chronic obstructive pulmonary disease. Exacerbation. Shortness of breath. TECHNIQUE: Two views. Frontal and lateral. COMPARISON: 05/06/2017. FINDINGS: The lungs are clear. The heart size is normal. There is no pleural effusion. There is no pneumothorax. IMPRESSION: 1. Normal chest radiograph. 2. No change from 05/06/2017. RPTAT: QQ .Shad Noguera MD, MD Date Time Electronically viewed and signed by .Shad Noguera MD, MD on 05/07/2017 10:09 .R/
--- NOTE | 2017-05-07 12:16 | PN ---
Date/Time of Note Date/Time of Note DATE: 05/07/17 TIME: 12:14 Assessment/Plan VTE Prophylaxis VTE Prophylaxis Intervention: heparin Lines/Catheters IV [facility] Urinary Cath still in place: No Assessment/Plan Chief Complaint/Hosp Course 1. Acute hypoxic respiratory failure. Hypoxic. This is most probably secondary to chronic obstructive pulmonary disease exacerbation. The patient will be continued on supplemental oxygen. 2. Chronic obstructive pulmonary disease exacerbation. The patient will be continued on inhaled bronchodilators around the clock and on a p.r.n. basis for episodes of dyspnea. The patient will be maintained on tapering dose of steroids. 3. Essential hypertension. The patient will be maintained on routine antihypertensives. 4. Dyslipidemia. The patient will be continued on statins. The patient will be continued on a low cholesterol diet. 5. Coronary artery disease. Status post stenting in the past. The patient will be continued on dual antiplatelet therapy. 6. Ischemic cardiomyopathy with an ejection fraction of 45%. The patient will be continued on beta blockers and ARBs. The patient has no evidence of any underlying decompensated heart failure. 7. Nicotine use. Cessation will be advised. 8. Fluids, electrolytes, and nutrition. Low-cholesterol diet. 9. DVT prophylaxis. Subcutaneous heparin. 10. Gastrointestinal prophylaxis. Histamine 2 receptor blockers. 11. Plan. Continue current management. Taper down steroids. Case discussed with Dr. Woodall. Problems: Subjective 24 Hr Interval Summary Free Text/Dictation Feeling better. Exam/Review of Systems Vital Signs Vitals Vital Signs Date Time Temp Pulse Resp B/P Pulse Ox O2 Delivery O2 Flow Rate FiO2 05/07/17 12:00 97.4 100 18 108/68 96 05/07/17 11:45 21 05/07/17 04:16 Nasal Cannula 2.0 Intake and Output 05/06/17 05/06/17 05/07/17 15:00 23:00 07:00 Intake Total 800 ml 500 ml Output Total 1200 ml Balance -400 ml 500 ml Exam GENERAL: This is a 61-year-old male, lying in bed in no significant respiratory distress. HEENT: Head normocephalic and atraumatic. Eyes, anicteric sclerae. Conjunctivae clear. ENT: Nasal septum is midline. Oral mucosa is dry. NECK: Supple. No JVD noticed. RESPIRATORY: Bilateral diminished breath sounds. Bilateral expiratory wheezing. Minimal use of accessory muscles of respiration. CARDIAC: S1, S2 heard. Regular rate and rhythm. GASTROINTESTINAL: Abdomen is soft, nontender and nondistended. Bowel sounds positive in all 4 quadrants. GENITOURINARY: Deferred. EXTREMITIES: No cyanosis, no clubbing, no edema. Peripheral pulses palpable. NEUROLOGIC: The patient is awake, alert and oriented. Cranial nerves are grossly intact. Results Result Diagram: 05/07/17 0643 05/07/17 0643 Results 24 hrs Laboratory Tests Test 05/07/17 06:43 05/07/17 06:46 White Blood Count 15.8 #H Red Blood Count 3.75 L Hemoglobin 12.0 L Hematocrit 35.8 L Mean Corpuscular Volume 95.5 Mean Corpuscular Hemoglobin 32.0 Mean Corpuscular Hemoglobin Concent 33.5 Red Cell Distribution Width 12.4 Platelet Count 267 Mean Platelet Volume 8.8 Neutrophils % 87.0 H Band Neutrophils % 5.0 Lymphocytes % 6.0 L Monocytes % 2.0 Eosinophils % 2.0 Myelocytes % 0.0 Neutrophils # Lymphocytes # 13.7 H Monocytes # 0.9 Eosinophils # 0.3 Myelocytes # 0.8 Platelet Estimate PLT APPEAR ADEQUATE Sodium Level 141 Potassium Level 4.3 Chloride Level 106 Carbon Dioxide Level 21 Anion Gap 18 H Blood Urea Nitrogen 25 H Creatinine 1.00 Glucose Level 156 Calcium Level 9.1 Total Bilirubin 0.1 L Direct Bilirubin 0.00 Indirect Bilirubin 0.1 Aspartate Amino Transf (AST/SGOT) 31 Alanine Aminotransferase (ALT/SGPT) 45 Alkaline Phosphatase 65 Total Protein 6.1 # Albumin 4.0 Globulin 2.10 Albumin/Globulin Ratio 1.90 Triglycerides Level 79 Cholesterol Level 105 LDL Cholesterol, Calculated 40 HDL Cholesterol 49 Cholesterol/HDL Ratio 2.1 Thyroid Stimulating Hormone (TSH) 0.088 L Hemoglobin A1c 5.4 Phosphorus Level 3.1 Magnesium Level 2.2 Medications Medications Current Medications Ondansetron HCl (Zofran Inj) 4 mg Q6H PRN IV NAUSEA AND/OR VOMITING; Start at 06:00 Methylprednisolone Sodium Succinate (Solu-Medrol) 60 mg BID IV Last administered on 05/07/17t 08:30; Admin Dose 60 MG; Start 05/06/17 at 09:00 Acetaminophen (Tylenol Tab) 650 mg Q6H PRN PO PAIN LEVEL 1-3 OR FEVER; Start at 06:00 Docusate Sodium (Colace) 100 mg Q12H PRN PO CONSTIPATION Last administered on 08:45; Admin Dose 100 MG; Start 05/06/17 at 06:00 Bisacodyl (Dulcolax) 5 mg DAILY PRN PO CONSTIPATION; Start 05/06/17 at 06:00 Pantoprazole (Protonix Iv) 40 mg DAILY@06 IV Last administered on 05/07/17 05: 58; Admin Dose 40 MG; Start 05/06/17 at 06:00 Heparin Sodium (Porcine) 5000 unit 5,000 unit Q8 SC Last administered on 05:59; Admin Dose 5,000 UNIT; Start 05/06/17 at 06:00 Ceftriaxone Sodium 50 ml @ 100 mls/hr Q24H IVPB Last administered on 05:57; Admin Dose 100 MLS/HR; Start 05/07/17 at 05:00 Azithromycin (Zithromax 500mg/ NS (Pmx)) 250 ml @ 250 mls/hr Q24H IVPB Last administered on 05/07/17 05:58; Admin Dose 250 MLS/HR; Start 05/07/17 at 06:00 Aspirin (Aspirin) 81 mg DAILY PO Last administered on 05/07/17 08:31; Admin Dose 81 MG; Start 05/06/17 at 09:00 Atorvastatin Calcium (Lipitor) 80 mg HS PO Last administered on 05/06/17 21:34 ; Admin Dose 80 MG; Start 05/06/17 at 21:00 Buspirone HCl (Buspar) 7.5 mg BID PO Last administered on 05/07/17 08:33; Admin Dose 7.5 MG; Start 05/06/17 at 09:00 Clopidogrel Bisulfate (plaVIX) 75 mg DAILY PO Last administered on 05/07/17 08 :31; Admin Dose 75 MG; Start 05/06/17 at 09:00 Losartan Potassium (Cozaar) 50 mg BID PO Last administered on 05/07/17 08:32; Admin Dose 50 MG; Start 05/06/17 at 09:00 Salmeterol Xinafoate/ Fluticasone (Advair 250/50 Diskus) 1 inh BID INH Last administered on 05/07/17 08:30; Admin Dose 1 INH; Start 05/06/17 at 09:00 Metoprolol Succinate (Toprol Xl) 50 mg DAILY PO Last administered on 05/07/17 08:32; Admin Dose 50 MG; Start 05/07/17 at 09:00 VIRGIL ORTIZ NP May 07, 2017 12:16
[2017-05-07] MEDS: ATORVASTATIN 80 MG TAB PO SCH (20:39)
[2017-05-07] MEDS: METHYLPREDNISOLONE 40 MG INJ IV SCH (20:39)
[2017-05-08] VITALS (9 sets, daily range): BP systolic 110–117; BP diastolic 58–66; PULSE 80–110; RESP 19
[2017-05-08] MEDS: ALBUTEROL 0.083% (NEB) 2.5 MG/3 ML AMP NEB SCH ×5 (00:43→16:52)
[2017-05-08] MEDS: ALBUTEROL 18 GM INHALER INH SCH ×5 (01:00→17:08)
[2017-05-08] MEDS: CEFTRIAXONE 1 GM/50 ML (PMX) 50 ML IVPB SCH (04:02)
[2017-05-08] MEDS: PANTOPRAZOLE 40 MG INJ IV SCH (05:16)
[2017-05-08] MEDS: AZITHROMYCIN 500MG/NS (PMX) 250 ML IVPB SCH (05:16)
[2017-05-08] MEDS: HEPARIN 5,000 UNIT/0.5 ML VIAL SC SCH ×2 (05:20→13:33)
[2017-05-08 07:23] LABS: ADD SCAN DIFF NO
[2017-05-08 07:31] LABS: BASOPHILS % 0.1 % (0.0-2.0); HEMATOCRIT 35.7 % (42.0-52.0); HEMOGLOBIN 11.8 g/dl (14.0-18.0); LYMPHOCYTES # 1.1 10^3/ul (0.8-2.9); LYMPHOCYTES % 6.9 % (15.0-51.0); MEAN CORPUSCULAR HEMOGLOBIN 32.2 pg (29.0-33.0); MEAN CORPUSCULAR HGB CONC 33.1 g/dl (32.0-37.0); MEAN CORPUSCULAR VOLUME 97.5 fl (82.0-101.0); MONOCYTE # 0.9 10^3/ul (0.3-0.9); NEUTROPHIL # 13.5 10^3/ul (1.6-7.5); NEUTROPHILS % 85.7 % (39.0-77.0); PLATELET COUNT 264 10^3/UL (140-415); RED BLOOD COUNT 3.66 10^6/ul (4.70-6.10); RED CELL DISTRIBUTION WIDTH 12.6 % (11.5-14.5); WHITE BLOOD COUNT 15.7 10^3/ul (4.8-10.8)
[2017-05-08 07:52] LABS: MAGNESIUM 2.2 mg/dl (1.7-2.5); PHOSPHORUS 2.7 mg/dl (2.5-4.9)
[2017-05-08 08:10] LABS: CALCIUM 9.2 mg/dl (8.4-10.2); CREATININE 1.02 mg/dl (0.61-1.24); POTASSIUM 4.6 mmol/L (3.5-5.1)
[2017-05-08] MEDS: BUSPIRONE 5 MG TAB PO SCH (09:09)
[2017-05-08] MEDS: SALMETEROL/FLUTICASONE 250/50 INHA INH SCH (09:10)
[2017-05-08] MEDS: ASPIRIN 81 MG TAB PO SCH (09:10)
[2017-05-08] MEDS: METHYLPREDNISOLONE 40 MG INJ IV SCH (09:10)
[2017-05-08] MEDS: LOSARTAN 50 MG TAB PO SCH (09:11)
[2017-05-08] MEDS: CLOPIDOGREL 75 MG TAB PO SCH (09:11)
[2017-05-08] MEDS: METOPROLOL (XL) 50 MG TAB PO SCH (09:12)
--- NOTE | 2017-05-08 14:58 | PDOCDIS ---
Discharge Instructions DIAGNOSIS Discharge Diagnosis 1. Acute hypoxic respiratory failure secondary to COPD exacerbation 2. Essential hypertension 3. Dyslipidemia 4. Coronary artery disease 5. Ischemic cardiopathy with ejection of 45% 6. History of nicotine use CONDITION Patient Condition: Stable HOME CARE INSTRUCTIONS: Diet Instructions: Reduced SodiumSpecial Diet: Low Fat Low Cholesterol diet FOLLOW UP/APPOINTMENTS Follow-up Plan 1. Follow-up with your primary care provider within a week OTHER ORDERS: Other Orders: 1. Stop cigarette smoking PETER DEY May 08, 2017 14:57
[2017-05-08] MEDS ORDERED: ALBU2.5V3 NEB (15:01)
[2017-05-08] MEDS ORDERED: PRED50TA PO (15:01)
[2017-05-08] MEDS ORDERED: ALBU8.5H3 INH (15:01)
[2017-05-08] MEDS ORDERED: ADV25050 INH (15:01)
[2017-05-08] MEDS ORDERED: METO25TA7 PO (15:44)
[2017-05-08] MEDS ORDERED: LOSA50TA6 PO (15:44)
[2017-05-08] MEDS ORDERED: CLOP75TA27 PO (15:44)
[2017-05-08] MEDS ORDERED: ATOR80TA75 PO (15:44)
--- NOTE | 2017-05-08 16:01 | DS ---
Date/Time of Note Date/Time of Note DATE: 05/08/17 TIME: 15:57 Discharge Summary Admission/Discharge Info Admit Date/Time May 06, 2017 at 04:33 Discharge Date/Time Discharge Diagnosis 1. Acute hypoxic respiratory failure secondary to COPD exacerbation 2. Essential hypertension 3. Dyslipidemia 4. Coronary artery disease 5. Ischemic cardiopathy with ejection of 45% 6. History of nicotine use Patient Condition: Stable Hospital Course This is a 61-year-old male with history of essential hypertension, COPD, CAD, ischemic cardiopathy with ejection fraction of 45%, acidemia, nicotine use, who came to [facility] due to reports of increased shortness of breath. Of note patient recently visited [facility] on April 30, 2017 with similar complaints and was discharged home on oral prednisone but only reported that he had 2 days of prednisone. He did report on May 05, 2017 his breathing had gotten worse. He subsequently went to [facility]. His chest x-ray was negative for any acute cardiopulmonary disease but he was noted to have active bronchospasm. Patient was placed on bronchodilators as well as steroid treatment and he did have good response to therapy. He is also on insulin oxygen for which we did titrate him off. He is otherwise optimized medically. He was continued on antihypertensives for hypertension and statin medication for dyslipidemia. He was also resumed on his antiplatelet therapy for his coronary artery disease we did continue optimization with his cardiovascular medications for his ischemic cardiomyopathy with reported ejection fraction of 45%. During his course of stay he did improve. He was instructed to follow-up with his primary care provider within a week. The plan of care was discussed with the patient and patient did verbalizes understanding. On the day of discharge patient was in stable condition Discussed plan of care with Dr. Castellano Discharge process 40 minutes Home Meds Active Scripts Losartan Potassium* (Losartan Potassium*) 50 Mg Tablet, 50 MG PO BID for 180 Days, TAB Prov:PETER DEY 05/08/17 Clopidogrel Bisulfate (Clopidogrel) 75 Mg Tablet, 75 MG PO DAILY for 180 Days, TAB Prov:PETER DEY 05/08/17 Metoprolol Succinate* (Toprol XL*) 25 Mg Tab.sr.24h, 50 MG PO DAILY for 180 Days Prov:PETER DEY 05/08/17 Atorvastatin* (Atorvastatin*) 80 Mg Tablet, 80 MG PO HS for 180 Days, TAB Prov:ZACKDILIABERTA VillatoroPETER 05/08/17 Salmeterol Xinaf/Fluticasone* (Advair*) 250-50 Diskus Inhaler, 1 INH INH BID, # 1 INH Prov:BERTA DEYNELL 05/08/17 Albuterol Sulfate* (Proair HFA*) 8.5 Gm Hfa.aer.ad, 2 PUFF INH Q4, #1 INHALER Prov:ZACKDILIABERTA VillatoroPETER 05/08/17 Prednisone* (Prednisone*) 50 Mg Tablet, 10 MG PO DAILY, #30 TAB 1. take prednisone 40mg by mouth daily for 3 days 2. then prednisone 30mg by mouth daily for 3 days 3. then prednisone 20mg by mouth daily for 3 days 4. then prednisone 10mg by mouth daily for 3 days Prov:TIBURCIOPETER 05/08/17 Albuterol Sulfate* (Albuterol Sulfate* Neb) 0.083%-3 Ml Neb, 2.5 MG NEB Q4H, # 30 VIAL Prov:ZACKRAKANPETER 05/08/17 Pantoprazole* (Pantoprazole*) 40 Mg Tablet.dr, 40 MG PO DAILY@06 for 20 Days Prov:PETER DEY 09/01/16 Aspirin (Aspirin) 81 Mg Chew, 81 MG PO DAILY for 30 Days, TAB Prov:PETER DEY 09/01/16 Reported Medications Buspirone Hcl* (Buspar*) 5 Mg Tab, 7.5 MG PO BID, TAB 04/06/17 Discontinued Scripts Mometasone-Formoterol (Dulera) 200-5 Mcg/Inh - 13 Gm Hfa.aer.ad, 2 PUFFS INHALATION BID for 30 Days, #1 INHALER Prov:VIRGIL ORTIZ NP 03/14/17 Losartan Potassium* (Cozaar*) 25 Mg Tablet, 25 MG PO DAILY for 30 Days, TAB Prov:TIBURCIOPETER 09/01/16 Follow-up Plan CONDITION Patient Condition: Stable HOME CARE INSTRUCTIONS: Diet Instructions: Reduced SodiumSpecial Diet: Low Fat Low Cholesterol diet FOLLOW UP/APPOINTMENTS Follow-up Plan 1. Follow-up with your primary care provider within a week OTHER ORDERS: Other Orders: 1. Stop cigarette smoking Primary Care Provider Care Physician No Primary Time spent on discharge: > 30 minutes Pending Labs Laboratory Tests Test 05/08/17 05:54 05/08/17 05:59 White Blood Count 15.710^3/ul (4.8-10.8) Red Blood Count 3.6610^6/ul (4.70-6.10) Hemoglobin 11.8g/dl (14.0-18.0) Hematocrit 35.7% (42.0-52.0) Mean Corpuscular Volume 97.5fl (82.0-101.0) Mean Corpuscular Hemoglobin 32.2pg (29.0-33.0) Mean Corpuscular Hemoglobin Concent 33.1g/dl (32.0-37.0) Red Cell Distribution Width 12.6% (11.5-14.5) Platelet Count 70992^3/UL (140-415) Mean Platelet Volume 9.0fl (7.4-10.4) Neutrophils % 85.7% (39.0-77.0) Lymphocytes % 6.9% (15.0-51.0) Monocytes % 6.0% (0.0-11.0) Eosinophils % 0.0% (0.0-7.0) Basophils % 0.1% (0.0-2.0) Nucleated Red Blood Cells % 0.0/100WBC (0.0-0.0) Neutrophils # 13.510^3/ul (1.6-7.5) Lymphocytes # 1.110^3/ul (0.8-2.9) Monocytes # 0.910^3/ul (0.3-0.9) Eosinophils # 0.010^3/ul (0.0-0.5) Basophils # 0.010^3/ul (0.0-0.1) Nucleated Red Blood Cells # 0.010^3/ul (0.0-0.0) Phosphorus Level 2.7mg/dl (2.5-4.9) Magnesium Level 2.2mg/dl (1.7-2.5) Sodium Level 143mmol/L (135-144) Potassium Level 4.6mmol/L (3.5-5.1) Chloride Level 109mmol/L (97-110) Carbon Dioxide Level 22mmol/L (21-31) Anion Gap 17 (8-16) Blood Urea Nitrogen 33mg/dl (7-20) Creatinine 1.02mg/dl (0.61-1.24) Glucose Level 113mg/dl (70-220) Calcium Level 9.2mg/dl (8.4-10.2) PETER DEY May 08, 2017 16:01
== END 2017-05-08 17:33 | disposition home or self-care (01) | DRG 190 ==
LOC: E/R 02:58 → MS4 04:33
PROVIDERS: ADMIT Family Medicine; ATTEND Family Medicine
DX: J44.1 Chronic obstructive pulmonary disease with (acute) exacerbation (principal); J96.01 Acute respiratory failure with hypoxia; I10 Essential (primary) hypertension; I25.5 Ischemic cardiomyopathy; I25.10 Atherosclerotic heart disease of native coronary artery without angina pectoris; F32.9 Major depressive disorder, single episode, unspecified; F17.200 Nicotine dependence, unspecified, uncomplicated; E78.5 Hyperlipidemia, unspecified; Z79.02 Long term (current) use of antithrombotics/antiplatelets; Z95.5 Presence of coronary angioplasty implant and graft
CPT/HCPCS: 36415; 36600; 71010; 71020; 80048; 80053; 80061; 82803; 83036; 83605; 83735; 84100; 84443; 85025; 85610; 85730; 87040; 93005; 94640; 94644; 94660; 96365; 96375; C9113; J0456; J0696; J1200; J1644; J1956; J2920; J2930; J3475

== ENCOUNTER 2017-05-18 06:31 | Emergency (ER) | payer MEDICAID ==
[~2017-05-18] VITALS: Ht 175.3 cm; Wt 76.0 kg
[~2017-05-18 06:31] MED LIST changes: +ADV25050 INH; +ALBU8.5H3 INH; -LOSA25TA2 PO; +LOSA50TA6 PO; -MOME13HF INHALATION
[2017-05-18 06:33] VITALS: Ht 175.3 cm; Wt 76.0 kg
[2017-05-18] MEDS ORDERED: HYDROCODONE/APAP (5/325) TAB PO ONE (07:00)
--- NOTE | 2017-05-18 07:09 | ERD ---
ER Documentation Chief Complaint Date/Time DATE: 05/18/17 TIME: 07:06 Chief Complaint rt hip pain radaiting to rt leg HPI This 61-year-old male who presents to the emergency department today complaining of right-sided back and hip pain that goes down into his legs for the past 9 days. States he went to [facility] 5 days ago and was told that he had sciatic pain. States he did not have any x-rays done. States that he recently started some bruising on both of his thighs. States he is currently on Plavix. Denies any trauma, fevers or chills, calf pain. Patient recently stopped smoking cigarettes approximately 4 weeks ago ROS All systems reviewed and are negative except as per history of present illness. Medications Home Meds Active Scripts Naproxen* (Naprosyn*) 500 Mg Tablet, 500 MG PO BID Y for PAIN AND/OR INFLAMMATION, #30 TAB Prov:PHILLIP TINAJERO PA-C 05/18/17 Tramadol HCl (Tramadol HCl) 50 Mg Tablet, 50 MG PO Q4 Y for PAIN, #20 TAB Prov:PHILLIP TINAJERO PA-C 05/18/17 Losartan Potassium* (Losartan Potassium*) 50 Mg Tablet, 50 MG PO BID for 180 Days, TAB Prov:PETER DEY 05/08/17 Clopidogrel Bisulfate (Clopidogrel) 75 Mg Tablet, 75 MG PO DAILY for 180 Days, TAB Prov:PETER DEY 05/08/17 Metoprolol Succinate* (Toprol XL*) 25 Mg Tab.sr.24h, 50 MG PO DAILY for 180 Days Prov:PETER DEY 05/08/17 Atorvastatin* (Atorvastatin*) 80 Mg Tablet, 80 MG PO HS for 180 Days, TAB Prov:PETER DEY 05/08/17 Salmeterol Xinaf/Fluticasone* (Advair*) 250-50 Diskus Inhaler, 1 INH INH BID, # 1 INH Prov:PETER DEY 05/08/17 Albuterol Sulfate* (Proair HFA*) 8.5 Gm Hfa.aer.ad, 2 PUFF INH Q4, #1 INHALER Prov:PETER DEY 05/08/17 Prednisone* (Prednisone*) 50 Mg Tablet, 10 MG PO DAILY, #30 TAB 1. take prednisone 40mg by mouth daily for 3 days 2. then prednisone 30mg by mouth daily for 3 days 3. then prednisone 20mg by mouth daily for 3 days 4. then prednisone 10mg by mouth daily for 3 days Prov:BERTA DEYNELL 05/08/17 Albuterol Sulfate* (Albuterol Sulfate* Neb) 0.083%-3 Ml Neb, 2.5 MG NEB Q4H, # 30 VIAL Prov:ZACKDILIABERTA VillatoroPETER 05/08/17 Pantoprazole* (Pantoprazole*) 40 Mg Tablet.dr, 40 MG PO DAILY@06 for 20 Days Prov:ZACKRAKANPETER 09/01/16 Aspirin (Aspirin) 81 Mg Chew, 81 MG PO DAILY for 30 Days, TAB Prov:ZACKRAKANPETER 09/01/16 Reported Medications Buspirone Hcl* (Buspar*) 5 Mg Tab, 7.5 MG PO BID, TAB 04/06/17 Allergies Allergies: Coded Allergies: levofloxacin (Verified Allergy, Mild, RASH, 05/08/17) PMhx/Soc History of Surgery: Yes (stent placement to lad in august 2016) Anesthesia Reaction: No Hx Neurological Disorder: No Hx Respiratory Disorders: Yes (copd;asthma;) Hx Cardiac Disorders: Yes (mi;) Hx Psychiatric Problems: No Hx Miscellaneous Medical Probl: No Hx Alcohol Use: No Hx Substance Use: No Hx Tobacco Use: Yes Smoking Status: Former smoker Physical Exam Vitals Vital Signs Date Time Temp Pulse Resp B/P Pulse Ox O2 Delivery O2 Flow Rate FiO2 05/18/17 06:33 98.1 92 18 142/89 97 Physical Exam Const: No acute distress Head: Atraumatic Eyes: Normal Conjunctiva ENT: Normal External Ears, Nose and Mouth. Neck: Full range of motion..~ No meningismus. Resp: Clear to auscultation bilaterally Cardio: Regular rate and rhythm, no murmurs Abd: Soft, non tender, non distended. Normal bowel sounds Skin: 2 areas of ecchymosis anterior thigh bilaterally Back: No midline tenderness. Right-sided paraspinal tenderness lumbar spine. Positive straight leg raise. Pulses 2+. Distal neurovascularly intact. Ext: No cyanosis, or edema. Nontender gastroc Neur: Awake and alert Psych: Normal Mood and Affect Result Diagram: 05/18/17 0707 Results 24 hrs Laboratory Tests Test 05/18/17 07:07 White Blood Count 13.310^3/ul Red Blood Count 4.2910^6/ul Hemoglobin 13.7g/dl Hematocrit 41.4% Mean Corpuscular Volume 96.5fl Mean Corpuscular Hemoglobin 31.9pg Mean Corpuscular Hemoglobin Concent 33.1g/dl Red Cell Distribution Width 13.3% Platelet Count 34544^3/UL Mean Platelet Volume 8.4fl Neutrophils % 61.4% Lymphocytes % 25.5% Monocytes % 6.7% Eosinophils % 3.1% Basophils % 0.5% Nucleated Red Blood Cells % 0.0/100WBC Neutrophils # 8.210^3/ul Lymphocytes # 3.410^3/ul Monocytes # 0.910^3/ul Eosinophils # 0.410^3/ul Basophils # 0.110^3/ul Nucleated Red Blood Cells # 0.010^3/ul Prothrombin Time 11.2Sec Prothrombin Time Ratio 0.9 INR International Normalized Ratio 0.81 Activated Partial Thromboplast Time 23.7Sec Current Medications Medications (Trade) Dose Ordered Sig/Osmar Route PRN Reason Start Time Stop Time Status Last Admin Dose Admin Acetaminophen/ Hydrocodone Bitart ([place] (5/325)) 1 tab ONCE ONCE PO 05/18/17 07:00 05/18/17 07:01 DC 05/18/17 07:03 Dexamethasone (Decadron) 10 mg ONCE ONCE IM 05/18/17 08:30 05/18/17 08:31 DC 05/18/17 08:21 GNOSTIC IMAGING REPORT Patient: SERA SPENCE : 1955 Age: 61 Sex: M [id number] DOS: 05/18/17 0000 Ordering MD: PHILLIP TINAJERO PA-C Location: [facility] Room/Bed: PROCEDURE: XR Hip. CLINICAL INDICATION: Right hip pain TECHNIQUE: AP and frog lateral views of the right hip were performed. COMPARISON: None. FINDINGS: There is no radiographic evidence of acute fracture. There is mild to moderate hip osteoarthrosis with predominately superior joint space loss and small marginal osteophyte formation. The soft tissues appear grossly unremarkable. IMPRESSION: 1. No radiographic evidence of acute osseous abnormality. 2. Mild to moderate right hip osteoarthrosis as above. RPTAT: UU .Felipe Paz MD, MD Date Time Electronically viewed and signed by .Felipe Paz MD, MD on 05/18/2017 08: 00 .K/ CC: PHILLIP TINAJERO PA-C DIAGNOSTIC IMAGING REPORT Patient: SERA SPENCE : 1955 Age: 61 Sex: M MR #: [id number] DOS: 05/18/17 0000 Ordering MD: PHILLIP TINAJERO PA-C Location: [facility] Room/Bed: PROCEDURE: XR Lumbar Spine. CLINICAL INDICATION: Low back pain TECHNIQUE: 3 images of the lumbar spine were obtained. COMPARISON: No prior studies are available for comparison. FINDINGS: There are 5 non rib-bearing lumbar type vertebral bodies. Vertebral body height and alignment is preserved. There is no radiographic evidence of acute fracture or subluxation. There is moderate discogenic disease and trace retrolisthesis at L5-S1. Mild facet arthrosis is noted at this level. Vascular calcifications are noted otherwise paraspinal soft tissues are grossly unremarkable. Limited assessment of the sacroiliac joints is grossly unremarkable. IMPRESSION: 1. Moderate discogenic disease and trace retrolisthesis at L5-S1. 2. No radiographic evidence of acute osseous abnormality. RPTAT: UU .Felipe Paz MD, MD Date Time Electronically viewed and signed by .Felipe Paz MD, MD on 05/18/2017 08: 01 .K/ CC: PHILLIP TINAJERO PA-C Procedures/MDM This a 61-year-old male who presents to the emergency department today complaining of right-sided back and hip pain that goes down into his legs. Patient was seen at another hospital approximately 5 days ago and was told he had sciatica. Given patient's age and location of pain I did obtain images. Patient also had some bruising on both his anterior thighs and therefore I did obtain some labs on him. CBC shows a mildly elevated white blood cell count. His hemoglobin is very mildly decreased. Platelets are within normal limits. Coags are within normal limits. Per the radiology report images of the lumbar spine shows moderate discogenic disease and trace retrolisthesis of L5 and S1. There is mild facet arthrosis. There is no acute fracture dislocation Images of the right hip show mild to moderate right hip osteoarthrosis with predominantly superior joint space loss and small marginal osteophyte formation. There is no acute fracture dislocation. This is likely the source of the patient's back and hip pain in addition to having sciatic pain. Patient was given [place] and Decadron here in the emergency department. He will be given a short course of tramadol, Naprosyn for home. At this time the patient is stable for discharge and outpatient management. Patient should follow up with their PCP in the next 1-2 days for referral to target protection specialist. They may return to the emergency department sooner for any persistent or worsening of symptoms. Patient understood and agreed with the plan. Discussed the patient with Dr. Lozano and he is in agreement with the plan. Departure Diagnosis: Primary Impression: Back pain Back pain location: low back pain Chronicity: unspecified Back pain laterality: right Sciatica presence: with sciatica Sciatica laterality: sciatica of right side Qualified Code: M54.41 - Right-sided low back pain with right-sided sciatica, unspecified chronicity Additional Impression: Hip pain Laterality: right Qualified Code: M25.551 - Pain of right hip joint Condition: PHILLIP Black PA-C May 18, 2017 07:09
[2017-05-18 07:14] LABS: BASOPHIL # 0.1 10^3/ul (0.0-0.1); BASOPHILS % 0.5 % (0.0-2.0); EOSINOPHILS # 0.4 10^3/ul (0.0-0.5); EOSINOPHILS % 3.1 % (0.0-7.0); HEMATOCRIT 41.4 % (42.0-52.0); HEMOGLOBIN 13.7 g/dl (14.0-18.0); LYMPHOCYTES # 3.4 10^3/ul (0.8-2.9); LYMPHOCYTES % 25.5 % (15.0-51.0); MEAN CORPUSCULAR HEMOGLOBIN 31.9 pg (29.0-33.0); MEAN CORPUSCULAR HGB CONC 33.1 g/dl (32.0-37.0); MEAN CORPUSCULAR VOLUME 96.5 fl (82.0-101.0); MEAN PLATELET VOLUME 8.4 fl (7.4-10.4); MONOCYTE # 0.9 10^3/ul (0.3-0.9); MONOCYTES % 6.7 % (0.0-11.0); NEUTROPHIL # 8.2 10^3/ul (1.6-7.5); NEUTROPHILS % 61.4 % (39.0-77.0); PLATELET COUNT 234 10^3/UL (140-415); RED BLOOD COUNT 4.29 10^6/ul (4.70-6.10); RED CELL DISTRIBUTION WIDTH 13.3 % (11.5-14.5); WHITE BLOOD COUNT 13.3 10^3/ul (4.8-10.8)
[2017-05-18 07:28] LABS: INR 0.81; PARTIAL THROMBOPLASTIN TIME 23.7 Sec (25.0-35.0); PROTIME 11.2 Sec (12.2-14.2); PT RATIO 0.9
--- NOTE | 2017-05-18 08:00 | RADRPT ---
PROCEDURE: XR Hip. CLINICAL INDICATION: Right hip pain TECHNIQUE: AP and frog lateral views of the right hip were performed. COMPARISON: None. FINDINGS: There is no radiographic evidence of acute fracture. There is mild to moderate hip osteoarthrosis w ith predominately superior joint space loss and small marginal osteophyte formation. The soft tissu es appear grossly unremarkable. IMPRESSION: 1. No radiographic evidence of acute osseous abnormality. 2. Mild to moderate right hip osteoarthrosis as above. RPTAT: UU .Felipe Paz MD, MD Date Time Electronically viewed and signed by .Felipe Paz MD, MD on 05/18/2017 08:00 .K/
--- NOTE | 2017-05-18 08:01 | RADRPT ---
PROCEDURE: XR Lumbar Spine. CLINICAL INDICATION: Low back pain TECHNIQUE: 3 images of the lumbar spine were obtained. COMPARISON: No prior studies are available for comparison. FINDINGS: There are 5 non rib-bearing lumbar type vertebral bodies. Vertebral body height and alignment is preserved. There is no radiographic evidence of acute fracture or subluxation. There is moderate discogenic disease and trace retrolisthesis at L5-S1. Mild facet arthrosis is not ed at this level. Vascular calcifications are noted otherwise paraspinal soft tissues are grossly unremarkable. Limited assessment of the sacroiliac joints is grossly unremarkable. IMPRESSION: 1. Moderate discogenic disease and trace retrolisthesis at L5-S1. 2. No radiographic evidence of acute osseous abnormality. RPTAT: UU .Felipe Paz MD, Date Time Electronically viewed and signed by .Felipe Paz MD, on 05/18/2017 08:01 .K/
[2017-05-18] MEDS ORDERED: DEXAMETHASONE 10 MG/ML 1 ML INJ IM ONE (08:30)
[2017-05-18] MEDS ORDERED: TRAM50TA2 PO (08:56)
[2017-05-18] MEDS ORDERED: NAPR-260 PO (08:56)
== END 2017-05-18 09:05 | disposition home or self-care (01) ==
LOC: FTE 06:31
DX: M54.41 Lumbago with sciatica, right side (principal); J44.9 Chronic obstructive pulmonary disease, unspecified; J45.909 Unspecified asthma, uncomplicated; Z79.01 Long term (current) use of anticoagulants; Z79.82 Long term (current) use of aspirin; Z87.891 Personal history of nicotine dependence; Z95.5 Presence of coronary angioplasty implant and graft
CPT/HCPCS: 72100; 73510; 85025; 85610; 85730; 96372; J1100; Z7502; Z7610

== ENCOUNTER 2017-07-23 23:16 | Emergency (ER) | payer SELFPAY ==
[~2017-07-23] VITALS: Ht 170.2 cm; Wt 72.7 kg
[~2017-07-23 23:16] MED LIST changes: +METO-335 PO; -METO25TA7 PO; +NAPR-260 PO; +TRAM50TA2 PO
[2017-07-23 23:19] VITALS: Ht 170.2 cm; Wt 72.7 kg
--- NOTE | 2017-07-23 23:27 | ERA ---
ER Documentation Chief Complaint Date/Time DATE: 07/23/17 TIME: 23:27 Chief Complaint INCREASING SOB WITH NO RELIEF FROM INHALERS X 2 DAYS. HX COPD/ASTHMA HPI 61-year-old man brought in by EMS for COPD exacerbation, patient has a long history of COPD and states he has been using his albuterol pump at home without relief. Patient denies chest pain, no calf or leg swelling, no fevers or chills , no vomiting or diarrhea. Patient was transported here on high flow oxygen without other complications. ROS All systems reviewed and are negative except as per history of present illness. Medications Home Meds Active Scripts Albuterol Sulfate* (Proair HFA*) 8.5 Gm Hfa.aer.ad, 2 PUFF INH Q6H Y for WHEEZING AND SOB, #1 INHALER Prov:LIZETH BYRD MD 07/24/17 Prednisone* (Prednisone*) 20 Mg Tab, 40 MG PO DAILY for 2 Days, TAB Prov:LIZETH BYRD MD 07/24/17 Naproxen* (Naprosyn*) 500 Mg Tablet, 500 MG PO BID Y for PAIN AND/OR INFLAMMATION, #30 TAB Prov:PHILLIP TINAJERO PA-C 05/18/17 Tramadol HCl (Tramadol HCl) 50 Mg Tablet, 50 MG PO Q4 Y for PAIN, #20 TAB Prov:PHILLIP TINAJERO PA-C 05/18/17 Losartan Potassium* (Losartan Potassium*) 50 Mg Tablet, 50 MG PO BID for 180 Days, TAB Prov:PETER DEY 05/08/17 Clopidogrel Bisulfate (Clopidogrel) 75 Mg Tablet, 75 MG PO DAILY for 180 Days, TAB Prov:PETER DEY 05/08/17 Metoprolol Succinate* (Toprol XL*) 25 Mg Tab.sr.24h, 50 MG PO DAILY for 180 Days Prov:PETER DEY 05/08/17 Atorvastatin* (Atorvastatin*) 80 Mg Tablet, 80 MG PO HS for 180 Days, TAB Prov:PETER DEY 05/08/17 Salmeterol Xinaf/Fluticasone* (Advair*) 250-50 Diskus Inhaler, 1 INH INH BID, # 1 INH Prov:PETER DEY 05/08/17 Albuterol Sulfate* (Proair HFA*) 8.5 Gm Hfa.aer.ad, 2 PUFF INH Q4, #1 INHALER Prov:ZACKDILIABERTA VillatoroPETER 05/08/17 Prednisone* (Prednisone*) 50 Mg Tablet, 10 MG PO DAILY, #30 TAB 1. take prednisone 40mg by mouth daily for 3 days 2. then prednisone 30mg by mouth daily for 3 days 3. then prednisone 20mg by mouth daily for 3 days 4. then prednisone 10mg by mouth daily for 3 days Prov:PETER DEY 05/08/17 Albuterol Sulfate* (Albuterol Sulfate* Neb) 0.083%-3 Ml Neb, 2.5 MG NEB Q4H, # 30 VIAL Prov:PETER DEY 05/08/17 Pantoprazole* (Pantoprazole*) 40 Mg Tablet.dr, 40 MG PO DAILY@06 for 20 Days Prov:PETER DEY 09/01/16 Aspirin (Aspirin) 81 Mg Chew, 81 MG PO DAILY for 30 Days, TAB Prov:PETER DEY 09/01/16 Reported Medications Buspirone Hcl* (Buspar*) 5 Mg Tab, 7.5 MG PO BID, TAB 04/06/17 Allergies Allergies: Coded Allergies: levofloxacin (Verified Allergy, Mild, RASH, 05/08/17) PMhx/Soc COPD, hypertension, dyslipidemia, CAD, CHF with a left ventricular ejection fraction of 45%, nicotine use. History of Surgery: Yes (stent placement to lad in august 2016) Anesthesia Reaction: No Hx Neurological Disorder: No Hx Respiratory Disorders: Yes (copd;asthma;) Hx Cardiac Disorders: Yes (mi;) Hx Psychiatric Problems: No Hx Miscellaneous Medical Probl: No Hx Alcohol Use: No Hx Substance Use: No Hx Tobacco Use: Yes Smoking Status: Former smoker FmHx Family History: No diabetes Physical Exam Vitals Vital Signs Date Time Temp Pulse Resp B/P Pulse Ox O2 Delivery O2 Flow Rate FiO2 07/23/17 23:19 98.9 108 22 130/97 100 Physical Exam GENERAL: Well-developed, well-nourished, appears dehydrated, afebrile HEENT: Dry mucous membranes, pink conjunctiva, no cervical spine tenderness or step-off deformities, no goiter, no jaundice or icterus, extraocular movements intact without pain. No submandibular induration, and no pharyngeal erythema NEURO: Alert and oriented 3, cranial nerves II through XII intact bilaterally, pupils equal round reactive to light, no focal deficits or facial asymmetry, sensation intact distally Strength 5/5 in upper and lower extremities bilaterally CARDIAC: Tachycardic and regular, no murmurs rubs or gallops LUNGS: Bilateral wheezing, no crackles or stridor ABDOMEN: Soft nontender, no guarding, no rigidity, no rebound, no psoas sign no obturator sign. Normoactive bowel sounds SKIN: Warm and dry to touch, no abrasions, contusions, or hematomas, no lacerations, no ecchymosis, no target lesions, and without ulcers EXTREMITIES: No clubbing cyanosis or edema, calves are bilaterally symmetrical, no Homans sign, no popliteal cord sign. Distal pulses equal and bilateral PSYCH: Normal affect without agitation or irritability Result Diagram: 07/23/17 2340 07/23/17 2340 Results 24 hrs Laboratory Tests Test 07/23/17 23:40 White Blood Count 9.010^3/ul Red Blood Count 5.0410^6/ul Hemoglobin 16.0g/dl Hematocrit 46.6% Mean Corpuscular Volume 92.5fl Mean Corpuscular Hemoglobin 31.7pg Mean Corpuscular Hemoglobin Concent 34.3g/dl Red Cell Distribution Width 12.2% Platelet Count 08398^3/UL Mean Platelet Volume 8.6fl Neutrophils % 38.8% Lymphocytes % 39.2% Monocytes % 5.6% Eosinophils % 15.4% Basophils % 0.8% Nucleated Red Blood Cells % 0.0/100WBC Neutrophils # 3.510^3/ul Lymphocytes # 3.510^3/ul Monocytes # 0.510^3/ul Eosinophils # 1.410^3/ul Basophils # 0.110^3/ul Nucleated Red Blood Cells # 0.010^3/ul Sodium Level 138mmol/L Potassium Level 4.3mmol/L Chloride Level 108mmol/L Carbon Dioxide Level 24mmol/L Anion Gap 10 Blood Urea Nitrogen 17mg/dl Creatinine 1.24mg/dl Glucose Level 98mg/dl Calcium Level 10.0mg/dl Total Bilirubin 0.5mg/dl Direct Bilirubin 0.00mg/dl Indirect Bilirubin 0.5mg/dl Aspartate Amino Transf (AST/SGOT) 26IU/L Alanine Aminotransferase (ALT/SGPT) 34IU/L Alkaline Phosphatase 72IU/L Troponin I < 0.012ng/ml B-Type Natriuretic Peptide 56PG/ML Total Protein 7.8g/dl Albumin 4.3g/dl Globulin 3.50g/dl Albumin/Globulin Ratio 1.22 Lipase 146U/L Current Medications Medications (Trade) Dose Ordered Sig/Osmar Route PRN Reason Start Time Stop Time Status Last Admin Dose Admin Sodium Chloride (NS) 1,000 ml @ 1,000 mls/hr Q1H STAT IV 07/23/17 23:36 07/24/17 00:35 DC 07/23/17 23:48 Methylprednisolone Sodium Succinate (Solu-Medrol) 125 mg ONCE ONCE IV 07/24/17 00:00 07/24/17 00:01 DC 07/23/17 23:48 Procedures/MDM IV line was established patient was placed on brick siding applicator rhythm strip revealed a sinus tachycardia at about 120 bpm. Patient was afebrile. EKG performed, read by me revealed a sinus tachycardia 112 bpm, left axis deviation, narrow QRS complex, no concerning ST elevations or depressions noted. I administered 1 L normal saline intravenously and methylprednisolone 125 mg IV 1. Chest X-ray 1V Interpreted by me: Soft Tissue: No acute abnormalities Bones: No acute abnormalities Mediastinum/Cardiac Silhouette/Lungs: No acute abnormalities CBC and electrolytes were normal, liver function tests were normal, troponin was negative. BNP was negative. Patient's pulmonary exam was repeated after medications were administered. His lung sounds were clear, respiratory rate was 18 breaths per minute and normal, and oxygen saturation was 98% on room air. Patient felt much better. Differential diagnoses considered, included but not limited to acute coronary syndrome, pulmonary embolism, aortic dissection, abdominal aortic aneurysm, sepsis, stroke, meningitis, encephalitis, pneumonia, appendicitis, cholecystitis , bowel obstruction, pyelonephritis, nephrolithiasis, cystitis, as well as metabolic, hematologic, and electrolyte abnormalities. As well as abscess, cellulitis, fractures, and dislocations. Patient feels much better at this time, and vital signs are normal, symptoms have improved. I did give strict instructions to return to the ED if symptoms continue or worsen, patient will otherwise follow-up with primary care physician. Patient understood instructions and agreed to plan. Disclaimer: Inadvertent spelling and grammatical errors are likely due to EHR/ dictation software use and do not reflect on the overall quality of patient care. Also, please note that the electronic time recorded on this note does not necessarily reflect the actual time of the patient encounter. Departure Diagnosis: Primary Impression: COPD (chronic obstructive pulmonary disease) Qualified Code: J44.1 - Chronic obstructive pulmonary disease with acute exacerbation Condition: LIZETH Reed MD Jul 23, 2017 23:27
[2017-07-23] MEDS ORDERED: SOD CHLORIDE 0.9% 1,000 ML IV STA (23:36)
[2017-07-24] MEDS ORDERED: METHYLPREDNISOLONE 125 MG INJ IV ONE
[2017-07-24 00:08] LABS: BASOPHIL # 0.1 10^3/ul (0.0-0.1); BASOPHILS % 0.8 % (0.0-2.0); EOSINOPHILS # 1.4 10^3/ul (0.0-0.5); EOSINOPHILS % 15.4 % (0.0-7.0); HEMATOCRIT 46.6 % (42.0-52.0); LYMPHOCYTES # 3.5 10^3/ul (0.8-2.9); LYMPHOCYTES % 39.2 % (15.0-51.0); MEAN CORPUSCULAR HEMOGLOBIN 31.7 pg (29.0-33.0); MEAN CORPUSCULAR HGB CONC 34.3 g/dl (32.0-37.0); MEAN CORPUSCULAR VOLUME 92.5 fl (82.0-101.0); MEAN PLATELET VOLUME 8.6 fl (7.4-10.4); MONOCYTE # 0.5 10^3/ul (0.3-0.9); MONOCYTES % 5.6 % (0.0-11.0); NEUTROPHIL # 3.5 10^3/ul (1.6-7.5); NEUTROPHILS % 38.8 % (39.0-77.0); PLATELET COUNT 247 10^3/UL (140-415); RED BLOOD COUNT 5.04 10^6/ul (4.70-6.10); RED CELL DISTRIBUTION WIDTH 12.2 % (11.5-14.5)
--- NOTE | 2017-07-24 00:17 | RADRPT ---
PROCEDURE: XR Chest. CLINICAL INDICATION: Asthma. TECHNIQUE: Single frontal view of the chest was obtained. COMPARISON: Chest x-ray 05/06/2017 03:28 a.m. FINDINGS: Monitoring electrodes project across the chest. The bony elements are normal. The heart, cardiomed iastinal silhouette and hilar structures are normal. The pulmonary vasculature is normal. There is a left-sided aorta. Lungs are hyperinflated with flattening of the diaphragms. No acute infiltrate i s identified. The costophrenic angles are normal. IMPRESSION: 1. Pulmonary hyperinflation which is unchanged when compared to 05/06/2017. 2. Stable chest x-ray compared to the prior study. No acute infiltrate is identified. RPTAT:AAJJ Physician Ita Date Time Electronically viewed and signed by Wisam English Physician on 07/24/2017 00:17 SYD/
[2017-07-24 00:35] LABS: ALANINE AMINOTRANSFERASE 34 IU/L (13-69); ALBUMIN 4.3 g/dl (3.3-4.9); ALBUMIN/GLOBULIN RATIO 1.22; ALKALINE PHOSPHATASE 72 IU/L (42-121); ANION GAP 10 (8-16); ASPARTATE AMINO TRANSFERASE 26 IU/L (15-46); BILIRUBIN,INDIRECT 0.5 mg/dl (0-1.1); BILIRUBIN,TOTAL 0.5 mg/dl (0.2-1.3); BLOOD UREA NITROGEN 17 mg/dl (7-20); CARBON DIOXIDE 24 mmol/L (21-31); CHLORIDE 108 mmol/L (97-110); CREATININE 1.24 mg/dl (0.61-1.24); GLUCOSE 98 mg/dl (70-220); POTASSIUM 4.3 mmol/L (3.5-5.1); SODIUM 138 mmol/L (135-144); TOTAL PROTEIN 7.8 g/dl (6.1-8.1)
[2017-07-24 00:58] LABS: TROPONIN-I < 0.012 ng/ml (0.00-0.12)
[2017-07-24] MEDS ORDERED: PRED20TA PO (01:06)
[2017-07-24] MEDS ORDERED: ALBU8.5H3 INH (01:06)
== END 2017-07-24 01:36 | disposition home or self-care (01) ==
LOC: E/R 23:16
DX: J44.1 Chronic obstructive pulmonary disease with (acute) exacerbation (principal); I10 Essential (primary) hypertension; I25.10 Atherosclerotic heart disease of native coronary artery without angina pectoris; I50.9 Heart failure, unspecified; J45.909 Unspecified asthma, uncomplicated; Z79.82 Long term (current) use of aspirin; Z87.891 Personal history of nicotine dependence; Z79.01 Long term (current) use of anticoagulants
CPT/HCPCS: 36415; 71010; 80053; 83690; 83880; 84484; 85025; 93005; 96374; 99285; J2930; J7030

== ENCOUNTER 2017-09-13 08:48 | Emergency (ER) | payer MEDICAID ==
[~2017-09-13] VITALS: Ht 175.3 cm; Wt 70.3 kg
[~2017-09-13 08:48] MED LIST changes: +PRED20TA PO
[2017-09-13 08:50] VITALS: Ht 175.3 cm; Wt 70.3 kg
[2017-09-13] MEDS ORDERED: ALBU18HF INHALATION (09:08)
[2017-09-13] MEDS ORDERED: PRED20TA PO (09:09)
[2017-09-13] MEDS ORDERED: ALBU2.5V3 NEB (09:09)
--- NOTE | 2017-09-13 09:15 | ERD ---
ER Documentation Chief Complaint Chief Complaint needs refill for albuterol inh HPI This is a 61-year-old male who presents to the emergency department today for a medication refill of his COPD medications. Patient states that he has had some cough but no shortness of breath. States that he ran out of his medications this morning and did not want to wait to see his doctor this afternoon. States he has gotten his Medi-Nabil back and has been assigned a new primary care doctor. Denies any fevers or chills ROS All systems reviewed and are negative except as per history of present illness. Medications Home Meds Active Scripts Prednisone* (Prednisone*) 20 Mg Tab, 40 MG PO DAILY for 4 Days, TAB Prov:PHILLIP TINAJERO PA-C 09/13/17 Albuterol Sulfate* (Albuterol Sulfate* Neb) 0.083%-3 Ml Neb, 2.5 MG NEB Q4 Y for SHORTNESS OF BREATH, #30 EA Prov:PHILLIP TINAJERO PA-C 09/13/17 Albuterol Sulfate* (Ventolin HFA*) 18 Gm Hfa.aer.ad, 2 PUFF INHALATION Q4H, #1 INHALER Prov:PHILLIP TINAJERO PA-C 09/13/17 Albuterol Sulfate* (Proair HFA*) 8.5 Gm Hfa.aer.ad, 2 PUFF INH Q6H Y for WHEEZING AND SOB, #1 INHALER Prov:LIZETH BYRD MD 07/24/17 Prednisone* (Prednisone*) 20 Mg Tab, 40 MG PO DAILY for 2 Days, TAB Prov:LIZETH BYRD MD 07/24/17 Naproxen* (Naprosyn*) 500 Mg Tablet, 500 MG PO BID Y for PAIN AND/OR INFLAMMATION, #30 TAB Prov:PHILLIP TINAJERO PA-C 05/18/17 Tramadol HCl (Tramadol HCl) 50 Mg Tablet, 50 MG PO Q4 Y for PAIN, #20 TAB Prov:PHILLIP TINAJERO PA-C 05/18/17 Losartan Potassium* (Losartan Potassium*) 50 Mg Tablet, 50 MG PO BID for 180 Days, TAB Prov:PETER DEY 05/08/17 Clopidogrel Bisulfate (Clopidogrel) 75 Mg Tablet, 75 MG PO DAILY for 180 Days, TAB Prov:PETRE DEY 05/08/17 Metoprolol Succinate* (Toprol XL*) 25 Mg Tab.sr.24h, 50 MG PO DAILY for 180 Days Prov:PETER DEY 05/08/17 Atorvastatin* (Atorvastatin*) 80 Mg Tablet, 80 MG PO HS for 180 Days, TAB Prov:PETER DEY 05/08/17 Salmeterol Xinaf/Fluticasone* (Advair*) 250-50 Diskus Inhaler, 1 INH INH BID, # 1 INH Prov:PETER DEY 05/08/17 Albuterol Sulfate* (Proair HFA*) 8.5 Gm Hfa.aer.ad, 2 PUFF INH Q4, #1 INHALER Prov:PETER DEY 05/08/17 Prednisone* (Prednisone*) 50 Mg Tablet, 10 MG PO DAILY, #30 TAB 1. take prednisone 40mg by mouth daily for 3 days 2. then prednisone 30mg by mouth daily for 3 days 3. then prednisone 20mg by mouth daily for 3 days 4. then prednisone 10mg by mouth daily for 3 days Prov:PETER DEY 05/08/17 Albuterol Sulfate* (Albuterol Sulfate* Neb) 0.083%-3 Ml Neb, 2.5 MG NEB Q4H, # 30 VIAL Prov:PETER DEY 05/08/17 Pantoprazole* (Pantoprazole*) 40 Mg Tablet.dr, 40 MG PO DAILY@06 for 20 Days Prov:ZACKRAKANPETER 09/01/16 Aspirin (Aspirin) 81 Mg Chew, 81 MG PO DAILY for 30 Days, TAB Prov:ZACKRAKANBERTAPETER 09/01/16 Reported Medications Buspirone Hcl* (Buspar*) 5 Mg Tab, 7.5 MG PO BID, TAB 04/06/17 Allergies Allergies: Coded Allergies: levofloxacin (Verified Allergy, Mild, RASH, 05/08/17) PMhx/Soc History of Surgery: Yes (stent placement to lad in august 2016) Anesthesia Reaction: No Hx Neurological Disorder: No Hx Respiratory Disorders: Yes (copd;asthma;) Hx Cardiac Disorders: Yes (mi;) Hx Psychiatric Problems: No Hx Miscellaneous Medical Probl: No Hx Alcohol Use: No Hx Substance Use: No Hx Tobacco Use: Yes Physical Exam Vitals Vital Signs Date Time Temp Pulse Resp B/P Pulse Ox O2 Delivery O2 Flow Rate FiO2 09/13/17 08:50 98.3 92 18 137/79 97 Physical Exam Const: talkative, NAD Head: Atraumatic Eyes: Normal Conjunctiva ENT: Normal External Ears, Nose and Mouth. Neck: Full range of motion..~ No meningismus. Resp: Clear to auscultation bilaterally Cardio: Regular rate and rhythm, no murmurs Abd: Soft, non tender, non distended. Normal bowel sounds Skin: No petechiae or rashes Back: No midline or flank tenderness Ext: No cyanosis, or edema Neur: Awake and alert Psych: Normal Mood and Affect Procedures/MDM This is a 61-year-old male who presents emergency department today for medication refill of his medicines that he takes for his COPD. Patient is afebrile and otherwise well-appearing. His oxygen saturation 97%. He is not tachycardic. Do not feel the patient requires further workup or imaging at this time. Patient was requesting a refill on his inhalers and nebulizers. He was also requesting steroids. Patient indicated that he had taken him a couple months ago. Upon review of patient's medical records he was prescribed him approximately 6 weeks ago. I will give him a short course. Low suspicion for pneumonia, PE, abscess, pleural effusion, pneumothorax. Given a prescription for Ventolin, albuterol nebulizers and a short course of prednisone for 4 days. He is instructed to follow-up with his primary care doctor today. At this time the patient is stable for discharge and outpatient management. Patient should follow up with their PCP in the next 1-2 days. They may return to the emergency department sooner for any persistent or worsening of symptoms. Patient understood and agreed with the plan. Departure Diagnosis: Primary Impression: Encounter for medication refill Condition: Fair Patient Instructions: Taking Medicine Safely Referrals: your PCP Additional Instructions: Call your primary care doctor TOMORROW for an appointment during the next 1-2 days.See the doctor sooner or return here if your condition worsens before your appointment time. See your primary care doctor today. Take medications as needed for shortness of breath and COPD PHILLIP TINAJERO PA-C Sep 13, 2017 09:15
== END 2017-09-13 09:19 | disposition home or self-care (01) ==
LOC: FTE 08:48
DX: Z76.0 Encounter for issue of repeat prescription (principal); J44.9 Chronic obstructive pulmonary disease, unspecified; J45.909 Unspecified asthma, uncomplicated; Z98.61 Coronary angioplasty status; Z87.891 Personal history of nicotine dependence
CPT/HCPCS: 99283

== ENCOUNTER 2017-10-02 07:08 | Emergency (ER) | payer MEDICAID, OTHER ==
[~2017-10-02] VITALS: Ht 170.2 cm; Wt 71.0 kg
[~2017-10-02 07:08] MED LIST changes: +ALBU18HF INHALATION
[2017-10-02 07:10] VITALS: Ht 170.2 cm; Wt 71.0 kg
[2017-10-02] MEDS ORDERED: PRED20TA PO (07:21)
[2017-10-02] MEDS ORDERED: ALBU8.5H3 INH (07:21)
[2017-10-02] MEDS ORDERED: ALBU2.5V3 NEB (07:21)
[2017-10-02] MEDS ORDERED: AZIT250T94 PO (07:21)
--- NOTE | 2017-10-02 07:23 | ERD ---
ER Documentation Chief Complaint Chief Complaint cough x 6 days HPI 61-year-old male presents with worsening cough over the last 6 days. He has a history of COPD. He complains of productive mucus. Denies fevers, chest pain, vomiting, abdominal pain. He has a remote history of smoking but not currently. He is using a nebulizer and inhaler at home. It provides relief but he is worried about worsening productive mucus. ROS All systems reviewed and are negative except as per history of present illness. Medications Home Meds Active Scripts Albuterol Sulfate* (Albuterol Sulfate* Neb) 0.083%-3 Ml Neb, 2.5 MG NEB Q4 Y for SHORTNESS OF BREATH, #30 EA Prov:SAL SCHUSTER MD 10/02/17 Azithromycin* (Zithromax*) 250 Mg Tablet, 250 MG PO .ZPACK DIRECTED, #6 TAB TAKE 500 MG (2 TABS) THE FIRST DAY THEN 250 MG (1 TAB) DAYS 2-5 Prov:SAL SCHUSTER MD 10/02/17 Albuterol Sulfate* (Proair HFA*) 8.5 Gm Hfa.aer.ad, 2 PUFF INH Q4, #1 INHALER Prov:SAL SCHUSTER MD 10/02/17 Prednisone* (Prednisone*) 20 Mg Tab, 40 MG PO DAILY for 6 Days, TAB Prov:SAL SCHUSTER MD 10/02/17 Prednisone* (Prednisone*) 20 Mg Tab, 40 MG PO DAILY for 4 Days, TAB Prov:PHILLIP TINAJERO PA-C 09/13/17 Albuterol Sulfate* (Albuterol Sulfate* Neb) 0.083%-3 Ml Neb, 2.5 MG NEB Q4 Y for SHORTNESS OF BREATH, #30 EA Prov:PHILLIP TINAJERO PA-C 09/13/17 Albuterol Sulfate* (Ventolin HFA*) 18 Gm Hfa.aer.ad, 2 PUFF INHALATION Q4H, #1 INHALER Prov:PHILLIP TINAJERO PA-C 09/13/17 Albuterol Sulfate* (Proair HFA*) 8.5 Gm Hfa.aer.ad, 2 PUFF INH Q6H Y for WHEEZING AND SOB, #1 INHALER Prov:LIZETH BYRD MD 07/24/17 Prednisone* (Prednisone*) 20 Mg Tab, 40 MG PO DAILY for 2 Days, TAB Prov:LIZETH BYRD MD 07/24/17 Naproxen* (Naprosyn*) 500 Mg Tablet, 500 MG PO BID Y for PAIN AND/OR INFLAMMATION, #30 TAB Prov:PHILLIP TINAJEROC 05/18/17 Tramadol HCl (Tramadol HCl) 50 Mg Tablet, 50 MG PO Q4 Y for PAIN, #20 TAB Prov:PHILLIP TINAJEROC 05/18/17 Losartan Potassium* (Losartan Potassium*) 50 Mg Tablet, 50 MG PO BID for 180 Days, TAB Prov:PETER DEY 05/08/17 Clopidogrel Bisulfate (Clopidogrel) 75 Mg Tablet, 75 MG PO DAILY for 180 Days, TAB Prov:PETER DEY 05/08/17 Metoprolol Succinate* (Toprol XL*) 25 Mg Tab.sr.24h, 50 MG PO DAILY for 180 Days Prov:PETER DEY 05/08/17 Atorvastatin* (Atorvastatin*) 80 Mg Tablet, 80 MG PO HS for 180 Days, TAB Prov:PETER DEY 05/08/17 Salmeterol Xinaf/Fluticasone* (Advair*) 250-50 Diskus Inhaler, 1 INH INH BID, # 1 INH Prov:PETER DEY 05/08/17 Albuterol Sulfate* (Proair HFA*) 8.5 Gm Hfa.aer.ad, 2 PUFF INH Q4, #1 INHALER Prov:PETER DEY 05/08/17 Prednisone* (Prednisone*) 50 Mg Tablet, 10 MG PO DAILY, #30 TAB 1. take prednisone 40mg by mouth daily for 3 days 2. then prednisone 30mg by mouth daily for 3 days 3. then prednisone 20mg by mouth daily for 3 days 4. then prednisone 10mg by mouth daily for 3 days Prov:PETER DEY 05/08/17 Albuterol Sulfate* (Albuterol Sulfate* Neb) 0.083%-3 Ml Neb, 2.5 MG NEB Q4H, # 30 VIAL Prov:PETER DEY 05/08/17 Pantoprazole* (Pantoprazole*) 40 Mg Tablet.dr, 40 MG PO DAILY@06 for 20 Days Prov:PETER DEY 09/01/16 Aspirin (Aspirin) 81 Mg Chew, 81 MG PO DAILY for 30 Days, TAB Prov:PETER DEY 09/01/16 Reported Medications Buspirone Hcl* (Buspar*) 5 Mg Tab, 7.5 MG PO BID, TAB 04/06/17 Allergies Allergies: Coded Allergies: levofloxacin (Verified Allergy, Mild, RASH, 05/08/17) PMhx/Soc History of Surgery: Yes (stent placement to lad in august 2016) Anesthesia Reaction: No Hx Neurological Disorder: No Hx Respiratory Disorders: Yes (copd;asthma;) Hx Cardiac Disorders: Yes (mi;) Hx Psychiatric Problems: No Hx Miscellaneous Medical Probl: No Hx Alcohol Use: No Hx Substance Use: No Hx Tobacco Use: Yes (QUIT) Physical Exam Vitals Vital Signs Date Time Temp Pulse Resp B/P Pulse Ox O2 Delivery O2 Flow Rate FiO2 10/02/17 07:10 98.2 96 18 123/68 97 Physical Exam Const: [] Alert, [id number]. Head: Atraumatic Eyes: Normal Conjunctiva ENT: Normal External Ears, Nose and Mouth. Neck: Full range of motion..~ No meningismus. Resp: Clear to auscultation bilaterally. Decreased air movement but no rales , retractions, wheezing. Cardio: Regular rate and rhythm, no murmurs Abd: Soft, non tender, non distended. Normal bowel sounds Skin: No petechiae or rashes Back: No midline or flank tenderness Ext: No cyanosis, or edema Neur: Awake and alert Psych: Normal Mood and Affect Results 24 hrs Current Medications Medications (Trade) Dose Ordered Sig/Osmar Route PRN Reason Start Time Stop Time Status Last Admin Dose Admin Prednisone (Prednisone) 40 mg ONCE ONCE PO 10/02/17 07:30 10/02/17 07:31 Procedures/MDM Patient presents with a one-week history of worsening productive cough. He has a history of COPD likely has a mild exacerbation without evidence of tachycardia , hypoxemia, chest pain, signs of pneumonia. He will treated with a prednisone taper, refills of albuterol and Zithromax, primary care follow-up and return precautions. The patient was stable with no new complaints during the ER course. Clinically, there is no current evidence to suggest meningitis, sepsis, acute abdomen, pneumonia, acute coronary syndrome, pulmonary embolism, or any other emergent condition appearing to require further evaluation or hospitalization. The patient should certainly return for any new or worsening symptoms per the aftercare instructions. They should otherwise follow-up with her primary care doctor for reevaluation this week. Departure Diagnosis: Primary Impression: Cough Condition: Stable Patient Instructions: Bronchitis With Wheezing (Adult), Copd Flare Additional Instructions: Recheck for new or worsening symptoms with primary care doctor. SAL SCHUSTER MD Oct 02, 2017 07:23
[2017-10-02] MEDS ORDERED: predniSONE 20 MG TAB PO ONE (07:30)
== END 2017-10-02 07:42 | disposition home or self-care (01) ==
LOC: FTE 07:08
DX: R05 Cough (principal); J44.9 Chronic obstructive pulmonary disease, unspecified; J45.909 Unspecified asthma, uncomplicated; Z87.891 Personal history of nicotine dependence; Z79.82 Long term (current) use of aspirin; Z79.01 Long term (current) use of anticoagulants; Z98.61 Coronary angioplasty status
CPT/HCPCS: J7512; Z7502; 99284